=== PATIENT | female | born 1995 | race Caucasian/White ===

== ENCOUNTER 2016-09-26 20:51 | Outpatient (CLI) | payer MEDICAID ==
[2016-09-26] MEDS ORDERED: PROMETHAZINE HCL 25 MG SUPP (4 SUPP/ER DISP) PR ONE (21:31)
[2016-09-26] MEDS ORDERED: PROMETHAZINE HCL 25 MG SUPP.RECT PR ONE ×2 (21:35→22:00)
[2016-09-26 21:43] LABS: AMNISURE (ROM) NEGATIVE (NEGATIVE)
--- NOTE | 2016-09-26 22:01 | L&D Flow Sheet ---
LD Flowsheet Datetime Report Generated by CPN: 09/26/2016 22:00 Datetime: 09/26/2016 21:45 Patient Care Comments: Patient vomitting (Betzy Field, RN) Datetime: 09/26/2016 21:40 NBP Sys/Skylar/Mean (mmHg): 114 (QS system process) : 76 (QS system process) : 90 (QS system process) Pulse: 106 (QS system process) LaborFlag: Antepartum (QS system process) Datetime: 09/26/2016 21:39 Medications Medication Comments: Phenergan 25 mg [place] (Betzy Field, RN) Datetime: 09/26/2016 21:28 Communication Communication: RN Reviewed Strip; Provider Orders Received (Betzy Patricio RN) Communication Comments: Informed Dr. Baltazar of patient's complaint; orders recevied fro Phenergan 25 mg supp per rectum (Betzy Patricio RN) Datetime: 09/26/2016 21:22 Frequency (min): q1-2 minutes (Betzy Patricio RN) Pain Pain Scale: 4 (Betzy Patricio RN) Pain Presence: Intermittent (Betzy Patricio RN) Pain Type: Cramping (Betzy Patricio RN) Pain Location: Abdomen (Betzy Patricio RN) Pain Goal: 0 (Betzy Patricio RN) Pain Relief Measures: Comfort Measures (Betzy Patricio RN) Pain Coping: Talking Through Contractions; Breathing Through Contractions (Betzy Patricio RN) Vaginal Bleeding: None (Betzy Field, RN) Maternal Assessment Level of Consciousness: Fully Conscious (Betzy Field, RN) DTR's/Clonus: DTRs 2+; No Clonus (Betzy Field, RN) Headache: Denies (Betzy Field, RN) Breath Sounds, Left: Clear and Equal (Betzy Field, RN) Breath Sounds, Right: Clear and Equal (Betzy Field, RN) Nausea/Vomiting: Present (Betzy Field, RN) RUQ Epigastric Pain: Denies (Betzy Field, RN) Teaching Instructional Method: Verbal; Patient Instructed; Family/Support Person Instructed; Verbalized Understanding (Betzy Patricio RN) Plan of Care: Plan of Care Discussed (Betzy Patricio RN) Unit Routine: [place] to Room; Call [place]; Bed; Visiting Policy; Waiting Areas; Infant Security; Phone/Cell Phone Use; Unit Personnel; Handwashing; Flu/Illness Precautions; Monitoring; Safety/Fall Risk Prevention; Bathroom Privileges (Betzy Patricio RN) LaborFlag: Antepartum (QS system process) Datetime: 09/26/2016 21:10 NBP Sys/Skylar/Mean (mmHg): 126 (QS system process) : 80 (QS system process) : 99 (QS system process) Pulse: 108 (QS system process) LaborFlag: Antepartum (QS system process) Datetime: 09/26/2016 21:08 Vital Signs Stage of : Antepartum (Betzy Field, RN) Vaginal Exam Dilatation (cm): 1.0 (Betzy Patricio RN) Effacement (%): 70 (Betzy Patricio, RN) Station: -2 (Betzy Patricio RN) Exam by: SANKET Chandra (Betzy Patricio, SANKET) Datetime: 09/26/2016 11:26 NBP Sys/Skylar/Mean (mmHg): 115 (QS system process) : 73 (QS system process) : 88 (QS system process) Pulse: 88 (QS system process) Uterine Activity Monitor Mode: External; Palpation (Jerome Driscoll RN) Frequency (min): 3-6 (Jerome Americo, RN) Quality: Mild (Jerome Americo, RN) Duration (sec): 60-80 (Jerome Americo, RN) Duration Criteria: Less than Two 120 Second Contractions (Jerome Americo, RN) Pattern: Normal: <= 5 Contractions in 10 Minutes (Jerome Americo, RN) Resting Tone (Palpate): Relaxed (Jerome Americo, RN) Assessment A Monitor Mode: External US (Jerome Americo, RN) FHR Baseline Rate : 130 (Jerome Americo, RN) FHR Baseline Changes: No Baseline Change (Jerome Americo, RN) Variability: Moderate 6-25 bpm (Jerome Americo, RN) Accelerations: Prolonged (Jerome Americo, RN) Decelerations: None (Jerome Americo, RN) Comments: Pt removed from monitors for discharge. (Jerome Americo, RN) Labor/Induction: Labor Stages (Jerome Americo, RN) Teaching Comments: Labor Process (Jerome Americo, RN) Communication Communication: RN at Bedside; RN Reviewed Strip (Jerome Americo, RN) Datetime: 09/26/2016 11:21 Exam by: S americo RN (Jerome Americo, RN) Vaginal Exam Comments: Unchanged (Jerome Americo, RN) Datetime: 09/26/2016 11:20 Communication Comments: K Taylor CNM notified of pt ve unchanged, efm strip, reactive NST, ctx pattern, pain. Orders to discharge pt home now for false labor. (Jerome Americo, RN) Datetime: 09/26/2016 11:15 Respirations: 16 (Jerome Americo, RN) Temperature (F): 98.0 (Jerome Americo, RN) Temperature (C): 36.7 (QS system process) Uterine Activity Monitor Mode: External; Palpation (Jerome Americo, RN) Frequency (min): 3-6 (Jerome Americo, RN) Quality: Mild (Jerome Americo, RN) Duration (sec): 60-110 (Jerome Americo, RN) Resting Tone (Palpate): Relaxed (Jerome Americo, RN) Assessment A Monitor Mode: External US (Jerome Americo, RN) FHR Baseline Rate : 130 (Jerome Aemrico, RN) Variability: Moderate 6-25 bpm (Jerome Americo, RN) Accelerations: 15X15 (Jerome Americo, RN) Decelerations: None (Jerome Americo, RN) Pain Pain Scale: 2 (Jerome Americo, RN) Pain Type: Contraction (Jerome Americo, RN) Pain Coping: Talking Through Contractions; Declines Medication or Epidural (Jerome Americo, RN) Maternal Assessment Level of Consciousness: Fully Conscious (Jerome Americo, RN) Headache: Denies (Jerome Americo, RN) Nausea/Vomiting: Denies (Jerome Americo, RN) RUQ Epigastric Pain: Denies (Jerome Americo, RN) Communication Communication: RN at Bedside; RN Reviewed Strip (Jerome Suneet, RN) Datetime: 09/26/2016 10:55 NBP Sys/Skylar/Mean (mmHg): 113 (QS system process) : 77 (QS system process) : 88 (QS system process) Pulse: 91 (QS system process) Datetime: 09/26/2016 10:52 Teaching Instructional Method: Demo; Verbal; Patient Instructed; Family/Support Person Instructed; Verbalized Understanding (Jerome Driscoll RN) Plan of Care: Plan of Care Discussed (Jerome Driscoll RN) Labor/Induction: Labor Stages (Jerome Driscoll RN) Related: Common Discomforts of ; Maternal Physical Changes; Maternal Emotional Changes; Nutrition; Hydration; Activity and Rest (Jerome Driscoll RN) Datetime: 09/26/2016 10:46 Monitor Interventions for UA: [place] Adjusted (Jerome Driscoll, RN) Datetime: 09/26/2016 10:45 Uterine Activity Monitor Mode: External; Palpation (Jerome Americo, RN) Frequency (min): irregular (Jerome Americo, RN) Quality: Mild (Jerome Americo, RN) Resting Tone (Palpate): Relaxed (Jerome Americo, RN) Assessment A Monitor Mode: External US (Jerome Americo, RN) FHR Baseline Rate : 120 (Jerome Americo, RN) Variability: Moderate 6-25 bpm (Jerome Americo, RN) Accelerations: 15X15 (Jerome Americo, RN) Decelerations: None (Jerome Americo, RN) Communication Communication: RN at Bedside; RN Reviewed Strip (Jerome Americo, RN) Datetime: 09/26/2016 10:20 NBP Sys/Skylar/Mean (mmHg): 128 (QS system process) : 67 (QS system process) : 88 (QS system process) Pulse: 85 (QS system process) Patient Care Patient Position/Activity: Left Lateral (Jerome Americo, RN) Datetime: 09/26/2016 10:19 Vaginal Exam Dilatation (cm): 1.0 (Jerome Americo, RN) Effacement (%): 70 (Jerome Americo, RN) Station: -2 (Jerome Americo, RN) Exam by: S Americo RN (Jerome Americo, RN) Vaginal Bleeding: None (Jerome Americo, RN) Cervix, Consistency: Firm (Jerome Americo, RN) Cervix, Position: Posterior (Jerome Americo, RN) Broussard's Score Dilatation (cm): 1-2 cm (Jerome Americo, RN) Effacement: 60-70_ effaced (Jerome Americo, RN) Station: minus 2 (Jerome Americo, RN) Consistency: Firm (Jerome Americo, RN) Position: Posterior (Jerome Americo, RN) Total Broussard's Score: 4 (QS system process) : 0-4 = Unfavorable cervix (QS system process) Datetime: 09/26/2016 10:15 Frequency (min): 5-10 (Jerome Driscoll, RN) Pain Pain Scale: 2 (Jerome Driscoll, RN) Pain Presence: Intermittent (Jerome Cabrerat, RN) Pain Type: Cramping; Contraction (Jerome Suneet, RN) Pain Location: Abdomen (Jerome Cabrerat, RN) Pain Relief Measures: Comfort Measures (Jerome Suneet, RN) Pain Coping: Talking Through Contractions; Declines Medication or Epidural (Jerome Suneet, RN) Vaginal Bleeding: None (Jerome Driscoll, RN) Maternal Assessment Level of Consciousness: Fully Conscious (Jerome Suneet, RN) DTR's/Clonus: DTRs 2+; No Clonus (Jerome Suneet, RN) Headache: Denies (Jerome Suneet, RN) Breath Sounds, Left: Clear and Equal (Jerome Suneet, RN) Breath Sounds, Right: Clear and Equal (Jerome Driscoll RN) Nausea/Vomiting: Denies (Jerome Driscoll RN) RUQ Epigastric Pain: Denies (Jerome Driscoll RN)
[2016-09-26] MEDS: RINGERS SOLUTION,LACTATED 2,000 ML IV PRN ×2 (23:03→23:48)
[2016-09-27] MEDS ORDERED: ZOLPIDEM TARTRATE 5 MG TABLET PO ONE (00:30)
[2016-09-27] MEDS ORDERED: ZOLPIDEM TARTRATE 5 MG TABLET ONE (00:43)
--- NOTE | 2016-09-27 04:46 | L&D General Admission ---
General Admit Datetime Report Generated by CPN: 09/27/2016 04:45 INFORMATION Patient Age: 21 (09/26/2016 10:01:QS system process) EDC: 09/25/2016 00:00 (09/26/2016 10:13:Jerome Driscoll RN) LMP: 12/20/2015 00:00 (09/26/2016 10:13:Jerome Driscoll RN) : 1 (09/26/2016 10:13:Jerome Driscoll RN) Para: 0 (09/26/2016 10:13:Jerome Driscoll RN) Baby, Number in Womb: 1 (09/26/2016 10:13:Betzy Patricio RN) CARE Primary Employment Officer: [facility] Department (09/26/2016 10:13:Jerome Driscoll RN) Employment Officer Other: [employer] (09/26/2016 10:13:Jerome Driscoll RN) Adequate Care: Yes (09/26/2016 10:13:Jerome Driscoll RN) Prepregnancy Weight (lb): 142 (09/26/2016 10:13:Jerome Driscoll RN) Prepregnancy Weight (kg): 64.5 (09/26/2016 10:13:QS system process) Height (in): 64 (09/26/2016 21:32:QS system process) Height (in): 64 (09/26/2016 10:14:QS system process) ALLERGIES Medication Allergy: No (09/26/2016 10:13:Jerome Driscoll RN) Medication Allergies: No Known Allergies (09/26/2016) (09/26/2016 10:14:QS system process) Latex Allergy: No Latex Allergies (09/26/2016 10:13:Jerome Driscoll RN) COMMUNICATION Primary Language: Macedonian (09/26/2016 10:13:Jerome Driscoll RN) Communication Barrier(s): None (09/26/2016 10:13:Jerome Driscoll RN) DEMOGRAPHICS Address: [address] [place] [id number] (09/26/2016 10:01:QS system process) Zipcode: [address] (09/26/2016 10:01:QS system process) Home (09/26/2016 10:01:QS system process) SSN: [id number] (09/26/2016 10:01:QS system process) Next of Kin Name: NATALI CHERRY (09/26/2016 10:01:QS system process) Next of Kin (09/26/2016 10:01:QS system process) Next of Kin Relationship: [place] (09/26/2016 10:01:QS system process) Date of : 1995 (09/26/2016 10:01:QS system process) Marital Status: Single (09/26/2016 10:01:QS system process) Sex: Female (09/26/2016 10:01:QS system process) Occupation: None (09/26/2016 10:13:Jerome Driscoll RN) Race: (09/26/2016 10:01:QS system process) Ethnicity: Non- or (09/26/2016 10:01:QS system process) Yazdanism: Jainism (09/26/2016 10:01:QS system process) Education: 12 (09/26/2016 10:13:Jerome Driscoll RN) FOB Involved: Yes (09/26/2016 10:13:Jerome Driscoll RN) Father of Baby Name: Tay Ashley (09/26/2016 10:13:Jerome Driscoll RN) Person Auth to release pt PHI: Natali Cherry (09/26/2016 10:13:Jerome Driscoll RN) DRUG AND ALCOHOL USE Alcohol: No (09/26/2016 10:13:Jerome Driscoll RN) Cigarettes: Never Smoker. [id number] (09/26/2016 10:13:Jerome Driscoll RN) Marijuana: No (09/26/2016 10:13:Jerome Driscoll RN) Cocaine: No (09/26/2016 10:13:Jerome Driscoll RN) Other Illicit Drugs: No (09/26/2016 10:13:Jerome Driscoll RN) VACCINE HISTORY Influenza Vaccine: Yes (09/26/2016 10:13:Jerome Driscoll RN) Influenza Date: 07/06/16 (09/26/2016 10:13:Jerome Driscoll RN) Pneumococcal Vaccine: Uncertain (09/26/2016 10:13:Jerome Driscoll RN) Tdap Vaccine: Yes (09/26/2016 10:13:Jerome Driscoll RN) Tdap Date: 07/06/16 (09/26/2016 10:13:Jerome Driscoll RN) Hepatitis B Vaccine: Yes (09/26/2016 10:13:Jerome Driscoll RN) Straightening Press Operator Helper: Navadelaida (09/26/2016 10:13:Jerome Driscoll RN) Feeding Preference: Both (09/26/2016 10:13:Jerome Driscoll RN) Benefit of Breast Feed Discussed: Yes (09/26/2016 10:13:Jerome Driscoll RN) Circumcision: Yes (09/26/2016 10:13:Jerome Driscoll RN) Classes Attended: No (09/26/2016 10:13:Jerome Driscoll RN) Tubal Ligation: No (09/26/2016 10:13:Jerome Driscoll RN) Tubal Authorization Signed: N/A (09/26/2016 10:13:Jerome Driscoll RN) Consent: N/A (09/26/2016 10:13:Jerome Driscoll RN) Consent Signed: N/A (09/26/2016 10:13:Jerome Driscoll RN) Pain Management Plans: Epidural (09/26/2016 10:13:Jerome Driscoll RN) Plans for Labor and Delivery: None (09/26/2016 10:13:Jerome Driscoll RN) Support Person: Tay Ashley (09/26/2016 10:13:Jerome Driscoll RN) Support Person Relationship: Significant Other (09/26/2016 10:13:Jerome Driscoll RN) Cultural/Spritual Practice: No (09/26/2016 10:13:Jerome Driscoll RN) Spir/Cult Dietary Needs: No (09/26/2016 10:13:Jerome Driscoll RN) LIVING SITUATION/DISCHARGE PLAN Living Arrangements: Apartment (09/26/2016 10:13:Jerome Driscoll RN) Adequate Access to:: Electric; Heat; Refrigeration; Plumbing/Running water; Phone; Transportation (09/26/2016 10:13:Jerome Driscoll RN) WIC Program: Yes (09/26/2016 10:13:Jerome Driscoll RN) Discharge Painting Contractor Person: Tay Ashley (09/26/2016 10:13:Jerome Driscoll RN) Person to Help after Discharge: Tay Ashley (09/26/2016 10:13:Jerome Driscoll RN) Currently Using Commun Resources: Yes (09/26/2016 10:13:Jerome Driscoll RN) Specify Current Resource Used: Medicaid (09/26/2016 10:13:Jerome Driscoll RN) Outside Agency/Director Of Cardiac Rehabilitation: Yes (09/26/2016 10:13:Jerome Driscoll RN) Car Seat for Discharge: Yes (09/26/2016 10:13:Jerome Driscoll RN) Adoption Requested: No (09/26/2016 10:13:Jerome Driscoll RN) Pt Contact w/infant Post : N/A (09/26/2016 10:13:Jerome Driscoll RN) LABS Group Beta Strep: NEGATIVE (09/26/2016 10:13:Jerome Driscoll RN) Gonorrhea: Negative (09/26/2016 10:13:Jerome Driscoll RN) Chlamydia: Negative (09/26/2016 10:13:Jerome Driscoll RN) OB/PREVIOUS HISTORY LMP: 12/20/2015 00:00 (09/26/2016 10:13:Jerome Driscoll RN) Previous Procedures: None (09/26/2016 10:13:Jerome Driscoll RN) Current Procedures: Ultrasound (09/26/2016 10:13:Jerome Driscoll RN) History of Previous : No (09/26/2016 10:13:Jerome Driscoll RN) History of Gestational Diabetes: No (09/26/2016 10:13:Jerome Driscoll RN) History of PIH: No (09/26/2016 10:13:Jerome Driscoll RN) History of Incompetent Cervix: No (09/26/2016 10:13:Jerome Driscoll RN) History of Placenta Previa/Abrup: No (09/26/2016 10:13:Jerome Driscoll RN) History of Macrosomia: No (09/26/2016 10:13:Jerome Driscoll RN) History of IUGR: No (09/26/2016 10:13:Jerome Driscoll RN) History of Hemorrhage: No (09/26/2016 10:13:Jerome Driscoll RN) History of Loss/Stillborn: No (09/26/2016 10:13:Jerome Driscoll RN) History of : No (09/26/2016 10:13:Jerome Driscoll RN) History of D (Rh) Sensitization: No (09/26/2016 10:13:Jerome Driscoll RN) History Recurrent Loss/Stillborn: No (09/26/2016 10:13:Jerome Driscoll RN) History Depression/PP Depression: No (09/26/2016 10:13:Jerome Driscoll RN) History of Uterine Anomaly/HAL: No (09/26/2016 10:13:Jerome Driscoll RN) History of Infertility: No (09/26/2016 10:13:Jerome Driscoll RN) History of ART Treatment: No (09/26/2016 10:13:Jerome Driscoll RN) History of HAL: No (09/26/2016 10:13:Jerome Driscoll RN) Comments Obstetrical History: G1 Current (09/26/2016 10:13:Jerome Driscoll RN) MEDICAL HISTORY Med Hx Diabetes: No (09/26/2016 10:13:Jerome Driscoll RN) Med Hx Hypertension: No (09/26/2016 10:13:Jerome Driscoll RN) Med Hx Heart Disease: No (09/26/2016 10:13:Jerome Driscoll RN) Med Hx Autoimmune Disorder: No (09/26/2016 10:13:Jerome Driscoll RN) Med Hx Kidney Disease/UTI: No (09/26/2016 10:13:Jerome Driscoll RN) Med Hx Neurologic/Epilepsy: No (09/26/2016 10:13:Jerome Driscoll RN) Med Hx Psychiatric Disorders: Yes (09/26/2016 10:13:Jerome Driscoll RN) Med Hx Hepatitis/Liver Disease: No (09/26/2016 10:13:Jerome Driscoll RN) Med Hx Varicosities/Phlebitis: No (09/26/2016 10:13:Jerome Driscoll RN) Med Hx Thyroid Dysfunction: No (09/26/2016 10:13:Jerome Driscoll RN) Med Hx Trauma/Violence: No (09/26/2016 10:13:Jeroem Driscoll RN) Med Hx Blood Transfusion: No (09/26/2016 10:13:Jerome Driscoll RN) Med Hx Pulmonary (Asthma,TB): No (09/26/2016 10:13:Jerome Driscoll RN) Med Hx Breast: No (09/26/2016 10:13:Jerome Driscoll RN) Med Hx SUPERINTENDENT CONTAINER TERMINAL Surgery: No (09/26/2016 10:13:Jerome Driscoll RN) Med Hx Hospitalization/Surgery: No (09/26/2016 10:13:Jerome Driscoll RN) Med Hx Anesthetic Complications: No (09/26/2016 10:13:Jerome Driscoll RN) Med Hx Abnormal Pap Smear: No (09/26/2016 10:13:Jerome Driscoll RN) Other Medical Diseases: No (09/26/2016 10:13:Jerome Driscoll RN) Med Hx Significant Family Hx: No (09/26/2016 10:13:Jerome Driscoll RN) Details of Med/Surg Hx: Anxiety; Hx Pancreatitis and elevated lipase; Anemia; Vertigo (09/26/2016 10:13:Jerome Driscoll RN) INFECTIOUS HISTORY Inf Hx Gonorrhea: No (09/26/2016 10:13:Jerome Driscoll RN) Inf Hx Chlamydia: No (09/26/2016 10:13:Jerome Driscoll RN) Inf Hx Syphilis: No (09/26/2016 10:13:Jerome Driscoll RN) Inf Hx HIV/AIDS: No (09/26/2016 10:13:Jerome Driscoll RN) Inf Hx Human Papilloma Virus: No (09/26/2016 10:13:Jerome Driscoll RN) Inf Hx Pt/Partner Genital Herpes: No (09/26/2016 10:13:Jerome Driscoll RN) Inf Hx Tuberculosis/Exposure: No (09/26/2016 10:13:Jerome Driscoll RN) Inf Hx Hepatitis B,C: No (09/26/2016 10:13:Jerome Driscoll RN) Inf Hx Rash or Viral Illness: No (09/26/2016 10:13:Jerome Driscoll RN) GENETIC HISTORY Gen Hx Age >=35 at RAS[place]: No (09/26/2016 10:13:Jerome Driscoll RN) Gen Hx Thalassemia: No (09/26/2016 10:13:Jerome Driscoll RN) Gen Hx Congenital Heart Defect: No (09/26/2016 10:13:Jerome Driscoll RN) Gen Hx Neural Tube Defect: No (09/26/2016 10:13:Jerome Driscoll RN) Gen Hx Down's Syndrome: No (09/26/2016 10:13:Jerome Driscoll RN) Gen Hx Aldair-Sachs: No (09/26/2016 10:13:Jerome Driscoll RN) Gen Hx Sun: No (09/26/2016 10:13:Jerome Driscoll RN) Gen Hx Familial Dysautonomia: No (09/26/2016 10:13:Jerome Driscoll RN) Gen Hx Sickle Cell Disease/Trait: No (09/26/2016 10:13:Jerome Driscoll RN) Gen Hx Hemophilia/Blood Disorder: No (09/26/2016 10:13:Jerome Driscoll RN) Gen Hx Muscular Dystrophy: No (09/26/2016 10:13:Jerome Driscoll RN) Gen Hx Cystic Fibrosis: No (09/26/2016 10:13:Jerome Driscoll RN) Gen Hx Huntingtons Chorea: No (09/26/2016 10:13:Jerome Driscoll RN) Gen Hx Mental Retardation/Autism: No (09/26/2016 10:13:Jerome Driscoll RN) Gen Hx Tested for Fragile X: No (09/26/2016 10:13:Jerome Driscoll RN) Gen Hx Other Inher/Chromosomal: No (09/26/2016 10:13:Jerome Driscoll RN) Gen Hx Maternal Metabolic DO: No (09/26/2016 10:13:Jerome Driscoll RN) Gen Hx Pt Father or FOB Defect: No (09/26/2016 10:13:Jerome Driscoll RN) Gen Hx Other Genetic History: No (09/26/2016 10:13:Jerome Driscoll RN) Gen Hx Drugs/Meds since LMP: No (09/26/2016 10:13:Jerome Driscoll RN) Gen Hx Medications: Tylenol Benadryl PNV Iron Vitamin C (09/26/2016 10:13:Jerome Driscoll RN)
--- NOTE | 2016-09-27 04:46 | L&D Current Admission ---
Current Admit Datetime Report Generated by CPN: 09/27/2016 04:45 ADMISSION INFORMATION Chief Complaint: Contractions (09/26/2016 21:22:Betzy Patricio RN) Chief Complaint: Contractions (09/26/2016 10:15:Jerome Driscoll RN)
--- NOTE | 2016-09-27 04:46 | L&D Discharge Summary ---
OB Discharge Summary Datetime Report Generated by CPN: 09/27/2016 04:45 DISCHARGE DIAGNOSIS Diagnosis/Symptoms: False Labor Gestation: 40.1 Number of Babies in Womb: 1 Parity: 0 DIET/ACTIVITY/RESTRICTIONS Diet: Regular Activity: Normal Activity TEACHING/INSTRUCTIONS/REFERRALS Instructions Given To: Patient and spouse Instructions Understood: Patient Verbalized Understanding; Support Person Verbalized Understanding Educational Materials- Other: Dehydration DISCHARGE INFORMATION Discharged AMA: No Discharge Date/Time: 09/27/2016 00:47 Discharged To: Home Discharge Provider Name: Dr. Baltazar Accompanied By: Spouse Discharge Method: Wheelchair Condition: Stable FOLLOW UP INFORMATION Follow Up With: [facility] Follow Up On: As Scheduled Follow Up Phone Number: [facility] - Comments: Discussed dehydration and signs and symptoms of when to return to office or hospital with patient and spouse. Both, patient and spouse, verbalized understanding. Patient discharged home for false labor via wheelchair in stable condition. GENERAL INSTR-CALL PROVIDER IF: Contractions: Contractions or cramps become more frequent than 8 in one hour or 4 in 20 minutes; Regular painful contractions every 5 minutes or less for one hour. Time your contractions from the beginning of one to the beginning of the next Pressure: Pressure in your vagina or lower abdomen that may feel like the baby is pushing down Period Like Cramps: Period-like cramps or low dull backache that may come and go Cramps/Diarrhea: Abdominal cramps that may be accompanied by diarrhea Gush of Fluid/Blood: Gush of fluid or blood from your vagina (it is normal to have spotting after vaginal exam or intercourse) Vaginal Discharge: Change in the type or amount of vaginal discharge Decreased Movement: Your baby is not moving as much as usual- 4 movements in 1 hour after drinking and resting on side Temperature: Temperature greater than 100.0(F) orally
--- NOTE | 2016-09-27 04:46 | Antepartum Discharge Summary ---
Antepartum DC Datetime Report Generated by CPN: 09/27/2016 04:45 DIET/ACTIVITY/RESTRICTIONS Diet: Regular (09/27/2016 00:52:Betzy Patricio, RN) Diet: Regular (09/26/2016 11:34:Jerome Americo, RN) Activity: Normal Activity (09/27/2016 00:52:Betzy Patricio, RN) Activity: Normal Activity (09/26/2016 11:34:Jerome Americo, RN) TEACHING/INSTRUCTIONS/REFERRALS Instructions Given To: Patient and spouse (09/27/2016 00:52:Betzy Patricio RN) Instructions Given To: pt (09/26/2016 11:34:Jerome Driscoll RN) Instructions Understood: Patient Verbalized Understanding; Support Person Verbalized Understanding (09/27/2016 00:52:Betzy Patricio RN) Instructions Understood: Patient Verbalized Understanding; Support Person Verbalized Understanding (09/26/2016 11:34:Jerome Driscoll RN) Educational Materials- Other: Dehydration (09/27/2016 00:52:Betzy Patricio RN) Educational Materials- Other: Kick Counts Labor Process (09/26/2016 11:34:Jerome Driscoll RN) DISCHARGE INFORMATION Discharged AMA: No (09/27/2016 00:52:Betzy Patricio RN) Discharged AMA: No (09/26/2016 11:34:Jerome Driscoll RN) Discharge Date/Time: 09/27/2016 00:47 (09/27/2016 00:52:Betzy Patricio RN) Discharge Date/Time: 09/26/2016 11:34 (09/26/2016 11:34:Jerome Driscoll RN) Discharged To: Home (09/27/2016 00:52:Betzy Patricio RN) Discharged To: Home (09/26/2016 11:34:Jerome Driscoll RN) Discharge Provider Name: Dr. Baltazar (09/27/2016 00:52:Betzy Patricio RN) Discharge Provider Name: FRANKO (09/26/2016 11:34:Jerome Driscoll RN) Accompanied By: Spouse (09/27/2016 00:52:Betzy Patricio RN) Discharge Method: Wheelchair (09/27/2016 00:52:Betzy Patricio RN) Discharge Method: Ambulatory (09/26/2016 11:34:Jerome Driscoll RN) Condition: Stable (09/27/2016 00:52:Betzy Patricio RN) Condition: Stable (09/26/2016 11:34:Jerome Driscoll RN) FOLLOW UP INFORMATION Follow Up With: [facility] (09/27/2016 00:52:Betzy Patricio RN) Follow Up With: [facility] (09/26/2016 11:34:Jerome Driscoll RN) Follow Up On: As Scheduled (09/27/2016 00:52:Betzy Patricio RN) Follow Up On: As Scheduled (09/26/2016 11:34:Jerome Driscoll RN) Follow Up Phone Number: [facility] - (09/27/2016 00:52:Betzy Patricio RN) Follow Up Phone Number: [facility] - (09/26/2016 11:34:Jerome Driscoll RN) Comments: Discussed dehydration and signs and symptoms of when to return to office or hospital with patient and spouse. Both, patient and spouse, verbalized understanding. Patient discharged home for false labor via wheelchair in stable condition. (09/27/2016 00:52:Betzy Patricio RN) Comments: Pt agrees with discharge; clinical microbiologist agrees with discharge. Pt discharged in no distress, understands s/s to report, when to return to hospital for evaluation, to keep scheduled appointment in office tomorrow. (09/26/2016 11:34:Jerome Driscoll RN) GENERAL INSTR-CALL PROVIDER IF: Contractions: Contractions or cramps become more frequent than 8 in one hour or 4 in 20 minutes; Regular painful contractions every 5 minutes or less for one hour. Time your contractions from the beginning of one to the beginning of the next (09/27/2016 00:52:Betzy Patricio RN) Contractions: Contractions or cramps become more frequent than 8 in one hour or 4 in 20 minutes; Regular painful contractions every 5 minutes or less for one hour. Time your contractions from the beginning of one to the beginning of the next (09/26/2016 11:34:Jerome Driscoll RN) Pressure: Pressure in your vagina or lower abdomen that may feel like the baby is pushing down (09/27/2016 00:52:Betzy Patricio RN) Pressure: Pressure in your vagina or lower abdomen that may feel like the baby is pushing down (09/26/2016 11:34:Jerome Driscoll RN) Period Like Cramps: Period-like cramps or low dull backache that may come and go (09/27/2016 00:52:Betzy Patricio RN) Period Like Cramps: Period-like cramps or low dull backache that may come and go (09/26/2016 11:34:Jerome Driscoll RN) Cramps/Diarrhea: Abdominal cramps that may be accompanied by diarrhea (09/27/2016 00:52:Betzy Patricio RN) Cramps/Diarrhea: Abdominal cramps that may be accompanied by diarrhea (09/26/2016 11:34:Jerome Driscoll RN) Gush of Fluid/Blood: Gush of fluid or blood from your vagina (it is normal to have spotting after vaginal exam or intercourse) (09/27/2016 00:52:Betzy Patricio RN) Gush of Fluid/Blood: Gush of fluid or blood from your vagina (it is normal to have spotting after vaginal exam or intercourse) (09/26/2016 11:34:Jerome Driscoll RN) Vaginal Discharge: Change in the type or amount of vaginal discharge (09/27/2016 00:52:Betzy Patricio RN) Vaginal Discharge: Change in the type or amount of vaginal discharge (09/26/2016 11:34:Jerome Driscoll RN) Decreased Movement: Your baby is not moving as much as usual- 4 movements in 1 hour after drinking and resting on side (09/27/2016 00:52:Betzy Patricio RN) Decreased Movement: Your baby is not moving as much as usual- 4 movements in 1 hour after drinking and resting on side (09/26/2016 11:34:Jerome Driscoll RN) Temperature: Temperature greater than 100.0(F) orally (09/27/2016 00:52:Betzy Patricio RN) Temperature: Temperature greater than 100.0(F) orally (09/26/2016 11:34:Jerome Driscoll RN) Hypertension Signs/Symptoms: Severe headache which is not relieved 30 minutes after taking Tylenol(Acetaminophen); Blurry vision or spots before your eyes; Severe heartburn or pain on the upper right side of your abdomen that is not relieved by an antacid; Increased swelling in your face, hands or feet (09/27/2016 00:52:Betzy Patricio RN) Hypertension Signs/Symptoms: Severe headache which is not relieved 30 minutes after taking Tylenol(Acetaminophen); Blurry vision or spots before your eyes; Severe heartburn or pain on the upper right side of your abdomen that is not relieved by an antacid; Increased swelling in your face, hands or feet (09/26/2016 11:34:Jerome Driscoll RN) Urinary Output: Decreased urinary output or dark colored urine (09/27/2016 00:52:Betzy Patricio RN) Urinary Output: Decreased urinary output or dark colored urine (09/26/2016 11:34:Jerome Driscoll RN) ADDITIONAL INSTRUCTIONS N/V [place]/Crackers: Keep dry toast/crackers with you to munch on (09/26/2016 11:34:Jerome Driscoll RN) N/V Frequent Meals: Eat small frequent meals (09/26/2016 11:34:Jerome Driscoll RN) N/V Empty Stomach: Try to keep something in your stomach (don't let your stomach get empty) (09/26/2016 11:34:Jerome Driscoll RN) N/V Time Getting Up: Take your time getting up (09/26/2016 11:34:Jerome Driscoll RN) N/V Avoid Smells: Avoid smells that make you feel sick (09/26/2016 11:34:Jerome Driscoll RN) Travel Seatbelts: Wear seatbelts or safety/lap belts (09/26/2016 11:34:Jerome Driscoll RN) Travel Walk Frequently: Walk frequently, every 1-2 hours (09/26/2016 11:34:Jerome Driscoll RN) Travel Comfort Clothes: Wear clothing that does not constrict and comfortable shoes (09/26/2016 11:34:Jerome Driscoll RN) Travel Light Snack: Keep a light snack (e.g. dry crackers) with you at all times to prevent nausea (09/26/2016 11:34:Jerome Driscoll RN) Travel Hydration: Drink plenty of water, low sodium and noncaffeinated drinks (09/26/2016 11:34:Jerome Driscoll RN) Travel Medications: DO NOT take any medication that is not approved by your physician first (09/26/2016 11:34:Jerome Driscoll RN) Travel PN Records: Always keep a copy of your medical record with you just in case (09/26/2016 11:34:Jerome Driscoll RN) Edema Avoid Standing: Avoid standing for long periods, keep legs up when you can (09/26/2016 11:34:Jerome Driscoll RN) Edema Rest on Side: When resting, lie on your side (left is best) (09/26/2016 11:34:Jerome Driscoll RN) Edema Limit Sodium: Limit the amount of salty foods you eat (09/26/2016 11:34:Jerome Driscoll RN) Edema Support Hose: Try to wear support hose as much as possible (09/26/2016 11:34:Jerome Driscoll RN) Exercise Overheating: Avoid situations that would cause you to become overheated (09/26/2016 11:34:Jerome Driscoll RN) Exercise Weather: Exercise outdoors only if the weather is reasonable and not too hot (09/26/2016 11:34:Jerome Driscoll RN) Exercise Exertion: Do not over exert yourself when you exercise (09/26/2016 11:34:Jerome Driscoll RN) Exercise Hydration: Drink plenty of fluids, especially water (09/26/2016 11:34:Jerome Driscoll RN) Exercise Support: Wear good support hose, bra and shoes when exercising (09/26/2016 11:34:Jerome Driscoll RN) Varicose Veins Instructions: Do not stand for long periods of time (09/26/2016 11:34:Jerome Driscoll RN) Varicose Veins Elevate Sit: Try to keep your legs elevated when you are sitting (09/26/2016 11:34:Jerome Driscoll RN) Varicose Veins Elevate Lying: When lying down, keep your legs elevated (09/26/2016 11:34:Jerome Driscoll RN) Varicise Veins Non Binding: When wearing stockings or socks, make sure they are not too tight and bind your legs (09/26/2016 11:34:Jerome Driscoll RN) Varicose Veins Support: Wear support hose/stockings at all times (09/26/2016 11:34:Jerome Driscoll RN) Varicose Veins Periodic Move: If you have a job where you sit a lot, get up periodically and walk around (09/26/2016 11:34:Jerome Driscoll RN)
--- NOTE | 2016-09-27 04:46 | L&D Flow Sheet ---
LD Flowsheet Datetime Report Generated by CPN: 09/27/2016 04:45 Datetime: 09/27/2016 00:43 Analgesics/Sedatives: Ambien (mg) @ (Annotations: 5 mg PO) (Betzy Patricio RN) Patient Care Comments: Discussed Dehydration and signs and symptoms of when to return to office or hospital with patient and spouse; both patient and spouse verbalized understanding. (Bezty Patricio RN) Datetime: 09/27/2016 00:35 Dilatation (cm): 1.0 (Betzy Field, RN) Effacement (%): 70 (Betzy Patricio, RN) Station: -2 (Betzy Patricio, RN) Exam by: SANKET Chandra (Betzy Patricio, RN) Datetime: 09/27/2016 00:30 Monitor Mode: External; Palpation (Betzy Patricio, RN) Frequency (min): 3-6.5 (Betzy Patricio, RN) Quality: Mild (Betzy Patricio, RN) Duration (sec): 70-110 (Betzy Patricio, RN) Resting Tone (Palpate): Relaxed (Betzy Patricio, RN) Monitor Mode: External US (Betzy Patricio, RN) FHR Baseline Rate : 130 (Betzy Patricio, RN) Variability: Moderate 6-25 bpm (Betzytheodore Patricio, RN) Accelerations: 15X15 (Betzy Field, RN) Decelerations: None (Betzy Patricio, RN) Datetime: 09/27/2016 00:10 NBP Sys/[place]/Mean (mmHg): 120 (QS system process) : 80 (QS system process) : 95 (QS system process) Pulse: 110 (QS system process) LaborFlag: Antepartum (QS system process) Datetime: 09/27/2016 00:00 Monitor Mode: External; Palpation (Betzy Field, RN) Frequency (min): 6-7 (Betzy Field, RN) Quality: Mild (Betzy Field, RN) Duration (sec): 60-140 (Betzy Field, RN) Resting Tone (Palpate): Relaxed (Betzy Field, RN) Monitor Mode: External US (Betzy Field, RN) FHR Baseline Rate : 130 (Betzy Field, RN) Variability: Moderate 6-25 bpm (Betzy Field, RN) Accelerations: 15X15 (Betzy Field, RN) Decelerations: None (Betzy Field, RN) Datetime: 09/26/2016 23:47 IV/Blood Work: IV Infusing per Order; New IV Bag Hung (Betzy Field, RN) Datetime: 09/26/2016 23:40 NBP Sys/[place]/Mean (mmHg): 114 (QS system process) : 79 (QS system process) : 92 (QS system process) Pulse: 109 (QS system process) LaborFlag: Antepartum (QS system process) Datetime: 09/26/2016 23:30 Monitor Mode: External; Palpation (Betzy Field, RN) Frequency (min): 5.5-6.5 (Betzy Field, RN) Quality: Mild (Ebtzy Field, RN) Duration (sec): 60-130 (Betzy Field, RN) Resting Tone (Palpate): Relaxed (Betzy Field, RN) Monitor Mode: External US (Betzy Field, RN) FHR Baseline Rate : 130 (Betzy Field, RN) Variability: Moderate 6-25 bpm (Betzy Field, RN) Accelerations: 15X15 (Betzy Field, RN) Decelerations: None (Betzy Field, RN) Datetime: 09/26/2016 23:29 Communication: RN Reviewed Strip; Provider Orders Received (Betzy Patricio RN) Communication Comments: Orders received from Dr. Baltazar - if no change in cervix after 2nd bag of LR, patient can be discharged home with Ambien 5 mg PO (Betzy Patricio RN) Datetime: 09/26/2016 23:10 NBP Sys/[place]/Mean (mmHg): 113 (QS system process) : 83 (QS system process) : 93 (QS system process) Pulse: 103 (QS system process) LaborFlag: Antepartum (QS system process) Datetime: 09/26/2016 23:00 Monitor Mode: External; Palpation (Betzy Field, RN) Frequency (min): 5-7.5 (Betzy Field, RN) Quality: Mild (Betzy Field, RN) Duration (sec): 90-110 (Betzy Field, RN) Resting Tone (Palpate): Relaxed (Betzy Field, RN) Monitor Mode: External US (Betzy Field, RN) FHR Baseline Rate : 130 (Betzy Field, RN) Variability: Moderate 6-25 bpm (Betzy Field, RN) Accelerations: 15X15 (Betzy Field, RN) Decelerations: None (Betzy Field, RN) Datetime: 09/26/2016 22:40 NBP Sys/[place]/Mean (mmHg): 117 (QS system process) : 71 (QS system process) : 90 (QS system process) Pulse: 117 (QS system process) LaborFlag: Antepartum (QS system process) Datetime: 09/26/2016 22:30 Monitor Mode: External; Palpation (Betzy Field, RN) Frequency (min): 2.5-5 (Betzy Field, RN) Quality: Mild (Betzy Field, RN) Duration (sec): 70-100 (Betzy Field, RN) Resting Tone (Palpate): Relaxed (Betzy Field, RN) Monitor Mode: External US (Betzy Field, RN) FHR Baseline Rate : 135 (Betzy Field, RN) Variability: Moderate 6-25 bpm (Betzy Field, RN) Accelerations: 10X10 (Betzy Field, RN) Decelerations: None (Betzy Field, RN) Datetime: 09/26/2016 22:11 NBP Sys/[place]/Mean (mmHg): 126 (QS system process) : 70 (QS system process) : 91 (QS system process) Pulse: 103 (QS system process) LaborFlag: Antepartum (QS system process) Datetime: 09/26/2016 22:09 Communication Comments: Orders received from Dr. Baltazar for 2 bags of LR IV (Betzy Field, RN) Datetime: 09/26/2016 22:00 Monitor Mode: External; Palpation (Betzy Field, RN) Frequency (min): 2.5-5.5 (Betzy Field, RN) Quality: Mild (Betzy Field, RN) Duration (sec): 70-80 (Betzy Field, RN) Resting Tone (Palpate): Relaxed (Betzy Field, RN) Monitor Mode: External US (Betzy Field, RN) FHR Baseline Rate : 135 (Betzy Field, RN) Variability: Moderate 6-25 bpm (Betzy Field, RN) Accelerations: 15X15 (Betzy Field, RN) Decelerations: None (Betzy Field, RN) Datetime: 09/26/2016 21:45 Patient Care Comments: Patient vomitting (Betzy Field, RN) Datetime: 09/26/2016 21:40 NBP Sys/[place]/Mean (mmHg): 114 (QS system process) : 76 (QS system process) : 90 (QS system process) Pulse: 106 (QS system process) LaborFlag: Antepartum (QS system process) Datetime: 09/26/2016 21:39 Medication Comments: Phenergan 25 mg AL (Betzy Patricio RN) Datetime: 09/26/2016 21:30 Monitor Mode: External; Palpation (Betzy Patricio RN) Frequency (min): 2.5-3 (Betzy Patricio RN) Quality: Mild (Betzy Patricio RN) Duration (sec): 80-100 (Betzy Patricio RN) Resting Tone (Palpate): Relaxed (Betzy Patricio RN) Monitor Mode: External US (Betzy Patricio RN) FHR Baseline Rate : 135 (Betzy Patricio RN) Variability: Moderate 6-25 bpm (Betzy Patricio RN) Accelerations: 10X10 (Betzy Patricio RN) Decelerations: None (Betzy Patricio RN) Datetime: 09/26/2016 21:28 Communication: RN Reviewed Strip; Provider Orders Received (Betzy Patricio RN) Communication Comments: Informed Dr. Baltazar of patient's complaint; orders recevied fro Phenergan 25 mg supp per rectum (Betzy Patricio RN) Datetime: 09/26/2016 21:22 Frequency (min): q1-2 minutes (Betzy Patricio RN) Pain Scale: 4 (Betzy Patricio RN) Pain Presence: Intermittent (Betzy Patricio RN) Pain Type: Cramping (Betzy Patricio RN) Pain Location: Abdomen (Betzy Patricio RN) Pain Goal: 0 (Betzy Patricio RN) Pain Relief Measures: Comfort Measures (Betzy Patricio RN) Pain Coping: Talking Through Contractions; Breathing Through Contractions (Betzy Patricio RN) Vaginal Bleeding: None (Betzy Patricio RN) Level of Consciousness: Fully Conscious (Betzy Patricio RN) DTR's/Clonus: DTRs 2+; No Clonus (Betzy Patricio RN) Headache: Denies (Betzy Patricio RN) Breath Sounds, Left: Clear and Equal (Betzy Patricio RN) Breath Sounds, Right: Clear and Equal (Betzy Patricio RN) Nausea/Vomiting: Present (Betzy Patricio RN) RUQ Epigastric Pain: Denies (Betzy Patricio RN) Instructional Method: Verbal; Patient Instructed; Family/Support Person Instructed; Verbalized Understanding (Betzy Patricio RN) Plan of Care: Plan of Care Discussed (Betzy Patricio RN) Unit Routine: [place] to Room; Call [place]; Bed; Visiting Policy; Waiting Areas; Security; Phone/Cell Phone Use; Unit Personnel; Handwashing; Flu/Illness Precautions; Monitoring; Safety/Fall Risk Prevention; Bathroom Privileges (Betzy Patricio RN) LaborFlag: Antepartum (QS system process) Datetime: 09/26/2016 21:10 NBP Sys/[place]/Mean (mmHg): 126 (QS system process) : 80 (QS system process) : 99 (QS system process) Pulse: 108 (QS system process) LaborFlag: Antepartum (QS system process) Datetime: 09/26/2016 21:08 Stage of : Antepartum (Betzy Patricio RN) Dilatation (cm): 1.0 (Betzy Patricio RN) Effacement (%): 70 (Betzy Patricio RN) Station: -2 (Betzy Patricio RN) Exam by: SANKET Chandra (Betzy Patricio RN)
--- NOTE | 2016-09-27 04:46 | L&D Admission Assessment ---
LD ADM ASMT Datetime Report Generated by CPN: 09/27/2016 04:45 PATIENT ASSESSMENT Assessment Type: Triage (09/26/2016 21:22:Betzy , RN) Assessment Type: Admission Assessment (09/26/2016 10:15:Jerome Suneet, RN) WEIGHT Weight (lb): 183 (09/26/2016 21:32:QS system process) Weight (lb): 185 (09/26/2016 10:14:QS system process) Weight (kg): 83.2 (09/26/2016 21:32:QS system process) Weight (kg): 84.1 (09/26/2016 10:14:QS system process) Total Wt Gain (lb): 41 (09/26/2016 21:32:QS system process) Total Wt Gain (lb): 43 (09/26/2016 10:14:QS system process) Wt Gain (kg): 18.5 (09/26/2016 21:32:QS system process) Wt Gain (kg): 19.5 (09/26/2016 10:14:QS system process) BMI: 31.4 (09/26/2016 21:32:QS system process) PAIN Pain Scale: 4 (09/26/2016 21:22:Betzy Patricio RN) Pain Scale: 2 (09/26/2016 11:15:Jerome Driscoll RN) Pain Scale: 2 (09/26/2016 10:15:Jerome Driscoll RN) Pain Presence: Intermittent (09/26/2016 21:22:Betzy Patricio RN) Pain Presence: Intermittent (09/26/2016 10:15:Jerome Driscoll RN) Pain Type: Cramping (09/26/2016 21:22:Betzy Patricio RN) Pain Type: Contraction (09/26/2016 11:15:Jerome Driscoll RN) Pain Type: Cramping; Contraction (09/26/2016 10:15:Jerome Driscoll RN) Pain Location: Abdomen (09/26/2016 21:22:Betzy Patricio RN) Pain Location: Abdomen (09/26/2016 10:15:Jerome Driscoll RN) Pain Goal: 0 (09/26/2016 21:22:Betzy Patricio RN) Pain Related to Contraction: Yes (09/26/2016 21:22:Betzy Patricio RN) Pain Related to Contraction: Yes (09/26/2016 10:15:Jerome Driscoll RN) CONTRACTIONS Frequency (min): 3-6.5 (09/27/2016 00:30:Betzy Patricio RN) Frequency (min): 6-7 (09/27/2016 00:00:Betzy Patricio RN) Frequency (min): 5.5-6.5 (09/26/2016 23:30:Betzy Patricio RN) Frequency (min): 5-7.5 (09/26/2016 23:00:Betzy Patricio RN) Frequency (min): 2.5-5 (09/26/2016 22:30:Betzy Patricio RN) Frequency (min): 2.5-5.5 (09/26/2016 22:00:Betzy Patricio RN) Frequency (min): 2.5-3 (09/26/2016 21:30:Betzy Patricio RN) Frequency (min): q1-2 minutes (09/26/2016 21:22:Betzy Patricio RN) Frequency (min): 3-6 (09/26/2016 11:26:Jerome Driscoll RN) Frequency (min): 3-6 (09/26/2016 11:15:Jerome Driscoll RN) Frequency (min): irregular (09/26/2016 10:45:Jerome Driscoll RN) Frequency (min): 5-10 (09/26/2016 10:15:Jerome Driscoll RN) Duration (sec): 70-110 (09/27/2016 00:30:Betzy Patricio RN) Duration (sec): 60-140 (09/27/2016 00:00:Betzy Patricio RN) Duration (sec): 60-130 (09/26/2016 23:30:Betzy Patricio RN) Duration (sec): 90-110 (09/26/2016 23:00:Betzy Patricio RN) Duration (sec): 70-100 (09/26/2016 22:30:Betzy Patricio RN) Duration (sec): 70-80 (09/26/2016 22:00:Betzy Patricio RN) Duration (sec): 80-100 (09/26/2016 21:30:Betzy Patricio RN) Duration (sec): 60-80 (09/26/2016 11:26:Jerome Driscoll RN) Duration (sec): 60-110 (09/26/2016 11:15:Jerome Driscoll RN) Quality: Mild (09/27/2016 00:30:Betzy Patricio RN) Quality: Mild (09/27/2016 00:00:Betzy Patricio RN) Quality: Mild (09/26/2016 23:30:Betzy Patricio RN) Quality: Mild (09/26/2016 23:00:Betzy Patricio RN) Quality: Mild (09/26/2016 22:30:Betzy Patricio RN) Quality: Mild (09/26/2016 22:00:Betzy Patricio RN) Quality: Mild (09/26/2016 21:30:Betzy Patricio RN) Quality: Mild (09/26/2016 11:26:Jerome Driscoll RN) Quality: Mild (09/26/2016 11:15:Jerome Driscoll RN) Quality: Mild (09/26/2016 10:45:Jerome Driscoll RN) Pattern: Normal: <= 5 Contractions in 10 Minutes (09/26/2016 11:26:Jerome Driscoll RN) Resting Tone [place]: Relaxed (09/27/2016 00:30:Betzy Patricio RN) Resting Tone [place]: Relaxed (09/27/2016 00:00:Betzy Patricio RN) Resting Tone [place]: Relaxed (09/26/2016 23:30:Betzy Patricio RN) Resting Tone [place]: Relaxed (09/26/2016 23:00:Betzy Patricio RN) Resting Tone [place]: Relaxed (09/26/2016 22:30:Betzy Patricio RN) Resting Tone [place]: Relaxed (09/26/2016 22:00:Betzy Patricio RN) Resting Tone [place]: Relaxed (09/26/2016 21:30:Betzy Patricio RN) Resting Tone [place]: Relaxed (09/26/2016 11:26:Jerome Driscoll RN) Resting Tone [place]: Relaxed (09/26/2016 11:15:Jerome Driscoll RN) Resting Tone [place]: Relaxed (09/26/2016 10:45:Jerome Driscoll RN) VAGINAL EXAM Dilatation (cm): 1.0 (09/27/2016 00:35:Betzy Patricio RN) Dilatation (cm): 1.0 (09/26/2016 21:08:Betzy Patricio RN) Dilatation (cm): 1.0 (09/26/2016 10:19:Jerome Driscoll RN) Effacement (%): 70 (09/27/2016 00:35:Betzy Patricio RN) Effacement (%): 70 (09/26/2016 21:08:Betzy Patricio RN) Effacement (%): 70 (09/26/2016 10:19:Jerome Driscoll RN) Station: -2 (09/27/2016 00:35:Betzy Patricio RN) Station: -2 (09/26/2016 21:08:Betzy Patricio RN) Station: -2 (09/26/2016 10:19:Jerome Driscoll RN) BRADFORD'S SCORE Bradford's Score Dilatation (cm): 1-2 cm (09/26/2016 10:19:Jerome Driscoll RN) Bradford's Score Effacement (%): 60-70_ effaced (09/26/2016 10:19:Jerome Driscoll RN) Bradford's Score Station: minus 2 (09/26/2016 10:19:Jerome Driscoll RN) Bradford's Score Consistency: Firm (09/26/2016 10:19:Jerome Driscoll RN) Bradford's Score Position: Posterior (09/26/2016 10:19:Jerome Driscoll RN) Total Bradford's Score: 4 (09/26/2016 10:19:QS system process) Bradford's Score Text: 0-4 = Unfavorable cervix (09/26/2016 10:19:QS system process) NEURO Level of Consciousness: Fully Conscious (09/26/2016 21:22:Betzy Patricio RN) Level of Consciousness: Fully Conscious (09/26/2016 11:15:Jerome Driscoll RN) Level of Consciousness: Fully Conscious (09/26/2016 10:15:Jerome Driscoll RN) DTR's/Clonus: DTRs 2+; No Clonus (09/26/2016 21:22:Betzy Patricio RN) DTR's/Clonus: DTRs 2+; No Clonus (09/26/2016 10:15:Jerome Driscoll RN) Headache: Denies (09/26/2016 21:22:Betzy Patricio RN) Headache: Denies (09/26/2016 11:15:Jerome Driscoll RN) Headache: Denies (09/26/2016 10:15:Jerome Driscoll RN) Dizziness: No (09/26/2016 21:22:Betzy Patricio RN) Dizziness: No (09/26/2016 10:15:Jerome Driscoll RN) Blurred Vision: No (09/26/2016 21:22:Betzy Patricio RN) Blurred Vision: No (09/26/2016 10:15:Jerome Driscoll RN) Extremity Numbness/Tingling : None (09/26/2016 21:22:Betzy Patricio RN) Extremity Numbness/Tingling : None (09/26/2016 10:15:Jerome Driscoll RN) Extremity Movement: Full Range of Motion (09/26/2016 21:22:Betzy Patricio RN) Extremity Movement: Full Range of Motion (09/26/2016 10:15:Jerome Driscoll RN) CARDIOVASCULAR Heart Rhythm: Regular (09/26/2016 21:22:Betzy Patricio RN) Nailbeds: [place] (09/26/2016 21:22:Betzy Patricio RN) Nailbeds: [place] (09/26/2016 10:15:Jerome Driscoll RN) Capillary Refill: Less than 3 Seconds (09/26/2016 21:22:Betzy Patricio RN) Capillary Refill: Less than 3 Seconds (09/26/2016 10:15:Jerome Driscoll RN) Lower Extremities Edema: None (09/26/2016 21:22:Betzy Patricio RN) Lower Extremities Edema Degree: None (09/26/2016 21:22:Betzy Patricio RN) Upper Extremities Edema: None (09/26/2016 21:22:Betzy Patricio RN) Upper Extremities Edema Degree: None (09/26/2016 21:22:Betzy Patricio RN) Facial Edema: None (09/26/2016 21:22:Betzy Patricio RN) Facial Edema: None (09/26/2016 10:15:Jerome Driscoll RN) Heriberto's Sign Left Leg: Negative (09/26/2016 21:22:Betzy Patricio RN) Heriberto's Sign Left Leg: Negative (09/26/2016 10:15:Jerome Driscoll RN) Heriberto's Sign Right Leg: Negative (09/26/2016 21:22:Betzy Patricio RN) Heriberto's Sign Right Leg: Negative (09/26/2016 10:15:Jerome Driscoll RN) DVT RISK ASSESSMENT DVT Risk Age: Age less than 41 years (09/26/2016 21:22:Betzy Patricio RN) DVT Risk BMI: BMI<31 (09/26/2016 21:22:Betzy Patricio, RN) RESPIRATORY Respiratory Effort: Unlabored; Regular Rhythm; Equal Expansion (09/26/2016 21:22:Betzy Patricio RN) Respiratory Effort: Unlabored; Regular Rhythm; Equal Expansion (09/26/2016 10:15:Jerome Driscoll RN) Breath Sounds, Left: Clear and Equal (09/26/2016 21:22:Betzy Patricio RN) Breath Sounds, Left: Clear and Equal (09/26/2016 10:15:Jerome Driscoll RN) Breath Sounds, Right: Clear and Equal (09/26/2016 21:22:Betzy Patricio RN) Breath Sounds, Right: Clear and Equal (09/26/2016 10:15:Jerome Driscoll RN) Cough Productivity: Productive (09/26/2016 21:22:Betzy Patricio RN) Cough Productivity: None (09/26/2016 10:15:Jerome Driscoll RN) GASTROINTESTINAL Nausea/Vomiting: Present (09/26/2016 21:22:Betzy Patricio RN) Nausea/Vomiting: Denies (09/26/2016 11:15:Jerome Driscoll RN) Nausea/Vomiting: Denies (09/26/2016 10:15:Jerome Driscoll RN) Bowel Sounds: Normoactive (09/26/2016 21:22:Betzy Patricio RN) Bowel Sounds: Normoactive; All Quadrants (09/26/2016 10:15:Jerome Driscoll RN) RUQ Epigastric Pain: Denies (09/26/2016 21:22:Betzy Patricio RN) RUQ Epigastric Pain: Denies (09/26/2016 11:15:Jerome Driscoll RN) RUQ Epigastric Pain: Denies (09/26/2016 10:15:Jerome Driscoll RN) Bowel Patterns: Diarrhea (09/26/2016 21:22:Betzy Patricio RN) Hemorrhoids: None (09/26/2016 21:22:Betzy Patricio RN) Diet Type: Regular diet (09/26/2016 21:22:Betzy Patricio RN) GENITOURINARY Bladder: Nondistended (09/26/2016 21:22:Betzy Patricio RN) Bladder: Nondistended (09/26/2016 10:15:Jerome Driscoll RN) Frequency of Urination: No (09/26/2016 21:22:Betzy Patricio RN) Frequency of Urination: No (09/26/2016 10:15:Jerome Driscoll RN) Urination Burning: No (09/26/2016 21:22:Betzy Patricio RN) Urination Burning: No (09/26/2016 10:15:Jerome Driscoll RN) CVA Tenderness: No (09/26/2016 21:22:Betzy Patricio RN) CVA Tenderness: No (09/26/2016 10:15:Jerome Driscoll RN) Vaginal Bleeding: None (09/26/2016 10:15:Jerome Driscoll RN) Vaginal Discharge Color: N/A (09/26/2016 10:15:Jerome Driscoll RN) INTEGUMENTARY Skin Color: Normal for Race (09/26/2016 21:22:Betzy Patricio RN) Skin Color: Normal for Race (09/26/2016 10:15:Jerome Driscoll RN) Skin Temperature: Warm (09/26/2016 21:22:Betzy Patricio RN) Skin Temperature: Warm (09/26/2016 10:15:Jerome Driscoll RN) Skin Moisture: Dry (09/26/2016 21:22:Betzy Patricio RN) Skin Moisture: Dry (09/26/2016 10:15:Jerome Driscoll RN) DAO SKIN ASSESSMENT Dao Scale Sensory Perception: No Impairment- Responds to verbal commands. Has no sensory deficit which would limit ability to feel or voice pain or discomfort (09/26/2016 21:22:Betzy Patricio RN) Dao Scale Sensory Perception: No Impairment- Responds to verbal commands. Has no sensory deficit which would limit ability to feel or voice pain or discomfort (09/26/2016 10:15:Jerome Driscoll RN) Dao Scale Moisture: Rarely Moist- Skin is usually dry. Linen only requires changing at routine intervals (09/26/2016 21:22:Betzy Patricio RN) Dao Scale Moisture: Rarely Moist- Skin is usually dry. Linen only requires changing at routine intervals (09/26/2016 10:15:Jerome Driscoll RN) Dao Scale Activity: Walks Frequently- Walks outside the room at least twice a day and inside room at least every 2 hours during the day. (09/26/2016 21:22:Betzy Patricio RN) Dao Scale Activity: Walks Frequently- Walks outside the room at least twice a day and inside room at least every 2 hours during the day. (09/26/2016 10:15:Jerome Driscoll RN) Dao Scale Mobility: No Limitations- Makes major and frequent changes in position without assistance (09/26/2016 21:22:Betzy Patricio RN) Dao Scale Mobility: No Limitations- Makes major and frequent changes in position without assistance (09/26/2016 10:15:Jerome Driscoll RN) Dao Scale Nutrition: Excellent- Eats most of every meal. Never refuses a meal. Usually eats a total of 4 or more servings of meat and dairy products. Occasionally eats between meals. Does not require supplementation (09/26/2016 21:22:Betzy Patricio RN) Dao Scale Nutrition: Excellent- Eats most of every meal. Never refuses a meal. Usually eats a total of 4 or more servings of meat and dairy products. Occasionally eats between meals. Does not require supplementation (09/26/2016 10:15:Jerome Driscoll RN) Dao Scale Friction and Shear: No Apparent Problem- Moves in bed and in chair independently and has sufficient muscle strength to lift up completely during move. Maintains good position in bed or chair at all times (09/26/2016 21:22:Betzy Patricio RN) Dao Scale Friction and Shear: No Apparent Problem- Moves in bed and in chair independently and has sufficient muscle strength to lift up completely during move. Maintains good position in bed or chair at all times (09/26/2016 10:15:Jerome Driscoll RN) Dao Scale Total: 23 (09/26/2016 21:22:QS system process) Dao Scale Total: 23 (09/26/2016 10:15:QS system process) Dao Scale Risk: No Risk of Pressure Ulcer Noted at this Time (09/26/2016 21:22:QS system process) Dao Scale Risk: No Risk of Pressure Ulcer Noted at this Time (09/26/2016 10:15:QS system process) SUPPORT Family Support: Significant Other supportive, at bedside frequently; Family supportive (09/26/2016 21:22:Betzy Patricio RN) Emotional State: Calm/Relaxed (09/26/2016 21:22:Betzy Patricio RN) SAFETY Call Spears Within Reach: Yes (09/26/2016 21:22:Betzy Patricio RN) Call Spears Within Reach: Yes (09/26/2016 10:15:Jerome Driscoll RN) Side Rails Up: Yes (09/26/2016 21:22:Betzy Patricio RN) Side Rails Up: Yes (09/26/2016 10:15:Jerome Driscoll RN) Bed Wheels Locked: Yes (09/26/2016 21:22:Betzy Patricio RN) Bed Wheels Locked: Yes (09/26/2016 10:15:Jerome Driscoll RN) Arm Bands Present: Yes (09/26/2016 21:22:Betzy Patricio RN) Arm Bands Present: Yes (09/26/2016 10:15:Jerome Driscoll RN) Isolation: [place] (09/26/2016 21:22:Betzy Patricio RN) FALL SCREEN Fall Risk History of Falling: (0) No (09/26/2016 21:22:Betzy Patricio RN) Fall Risk History of Falling: (0) No (09/26/2016 10:15:Jerome Driscoll RN) Fall Risk Secondary Diagnosis: (0) No (09/26/2016 21:22:Betzy Patricio RN) Fall Risk Secondary Diagnosis: (0) No (09/26/2016 10:15:Jerome Driscoll RN) Fall Risk Ambulatory Aid: (0) None/Bedrest/Wheelchair/Nurse Assist (09/26/2016 21:22:Betzy Patricio RN) Fall Risk Ambulatory Aid: (0) None/Bedrest/Wheelchair/Nurse Assist (09/26/2016 10:15:Jerome Driscoll RN) Fall Risk IV Therapy: (0) No (09/26/2016 21:22:Betzy Patricio RN) Fall Risk IV Therapy: (0) No (09/26/2016 10:15:Jerome Driscoll RN) Fall Risk Gait: (0) Normal/Bedrest/Immobile (09/26/2016 21:22:Betzy Patricio RN) Fall Risk Gait: (0) Normal/Bedrest/Immobile (09/26/2016 10:15:Jerome Driscoll RN) Fall Risk Mental Status: (0) Oriented to Own Ability (09/26/2016 21:22:Betzy Patricio RN) Fall Risk Mental Status: (0) Oriented to Own Ability (09/26/2016 10:15:Jerome Driscoll RN) Fall Risk Score: 0 (09/26/2016 21:22:QS system process) Fall Risk Score: 0 (09/26/2016 10:15:QS system process) Fall Risk Score Definition: No Risk: No action required (09/26/2016 21:22:QS system process) Fall Risk Score Definition: No Risk: No action required (09/26/2016 10:15:QS system process) RECENT TRAVEL/INFECTIOUS DISEASE Recent Exp Communicable Disease: No (09/26/2016 21:22:Betzy Patricio RN) Cough or Fever: No (09/26/2016 21:22:Betzy Patricio RN) Foreign Travel Past 10 Days: No (09/26/2016 21:22:Betzy Patricio RN) Open Wounds or Sores: No (09/26/2016 21:22:Betzy Patricio RN) Prior Antibiotic Resistance Tx: No (09/26/2016 21:22:Betzy Patricio RN) Cultures Obtained: Not Applicable (09/26/2016 21:22:Betzy Patricio RN) Isolation Initiated: No (09/26/2016 21:22:Betzy Patricio RN) Pt/Family Education: Handwashing Hygiene (09/26/2016 21:22:Betzy Patricio RN) BABY A FHR Baseline Rate (bpm) Baby A: 130 (09/27/2016 00:30:Betzy Patricio RN) FHR Baseline Rate (bpm) Baby A: 130 (09/27/2016 00:00:Betzy Patricio RN) FHR Baseline Rate (bpm) Baby A: 130 (09/26/2016 23:30:Betzy Patricio RN) FHR Baseline Rate (bpm) Baby A: 130 (09/26/2016 23:00:Betzy Patricio RN) FHR Baseline Rate (bpm) Baby A: 135 (09/26/2016 22:30:Betzy Patricio RN) FHR Baseline Rate (bpm) Baby A: 135 (09/26/2016 22:00:Betzy Patricio RN) FHR Baseline Rate (bpm) Baby A: 135 (09/26/2016 21:30:Betzy Patricio RN) FHR Baseline Rate (bpm) Baby A: 130 (09/26/2016 11:26:Jerome Driscoll RN) FHR Baseline Rate (bpm) Baby A: 130 (09/26/2016 11:15:Jerome Driscoll RN) FHR Baseline Rate (bpm) Baby A: 120 (09/26/2016 10:45:Jerome Driscoll RN) Variability Baby A: Moderate 6-25 bpm (09/27/2016 00:30:Betzy Patricio RN) Variability Baby A: Moderate 6-25 bpm (09/27/2016 00:00:Betzy Patricio RN) Variability Baby A: Moderate 6-25 bpm (09/26/2016 23:30:Betzy Patricio RN) Variability Baby A: Moderate 6-25 bpm (09/26/2016 23:00:Betzy Patricio RN) Variability Baby A: Moderate 6-25 bpm (09/26/2016 22:30:Betzy Patricio RN) Variability Baby A: Moderate 6-25 bpm (09/26/2016 22:00:Betzy Patricio RN) Variability Baby A: Moderate 6-25 bpm (09/26/2016 21:30:Betzy Patricio RN) Variability Baby A: Moderate 6-25 bpm (09/26/2016 11:26:Jerome Driscoll RN) Variability Baby A: Moderate 6-25 bpm (09/26/2016 11:15:Jerome Driscoll RN) Variability Baby A: Moderate 6-25 bpm (09/26/2016 10:45:Jerome Driscoll RN) Accelerations Baby A: 15X15 (09/27/2016 00:30:Betzy Patricio RN) Accelerations Baby A: 15X15 (09/27/2016 00:00:Betzy Patricio RN) Accelerations Baby A: 15X15 (09/26/2016 23:30:Betzy Patricio RN) Accelerations Baby A: 15X15 (09/26/2016 23:00:Betzy Patricio RN) Accelerations Baby A: 10X10 (09/26/2016 22:30:Betzy Patricio RN) Accelerations Baby A: 15X15 (09/26/2016 22:00:Betzy Patricio RN) Accelerations Baby A: 10X10 (09/26/2016 21:30:Betzy Patricio RN) Accelerations Baby A: Prolonged (09/26/2016 11:26:Jerome Driscoll RN) Accelerations Baby A: 15X15 (09/26/2016 11:15:Jerome Driscoll RN) Accelerations Baby A: 15X15 (09/26/2016 10:45:Jerome Driscoll RN) Decelerations Baby A: None (09/27/2016 00:30:Betzy Patricio RN) Decelerations Baby A: None (09/27/2016 00:00:Betzy Patricio RN) Decelerations Baby A: None (09/26/2016 23:30:Betzy Patricio RN) Decelerations Baby A: None (09/26/2016 23:00:Betzy Patricio RN) Decelerations Baby A: None (09/26/2016 22:30:Betzy Patricio RN) Decelerations Baby A: None (09/26/2016 22:00:Betzy Patricio RN) Decelerations Baby A: None (09/26/2016 21:30:Betzy Patricio RN) Decelerations Baby A: None (09/26/2016 11:26:Jerome Driscoll RN) Decelerations Baby A: None (09/26/2016 11:15:Jerome Driscoll RN) Decelerations Baby A: None (09/26/2016 10:45:Jerome Driscoll RN) ADDITIONAL COMMENTS Assessment Flag: Admission Assessment (09/26/2016 10:15:QS system process)
== END 2016-09-27 00:47 | disposition home or self-care (01) ==
LOC: LC 20:51
PROVIDERS: ATTEND Specialist
PROC: 4A1HXCZ Monitoring of Products of Conception, Cardiac Rate, External Approach (ICD-10-PCS; principal; 2016-09-26)
DX: O47.1 False labor at or after 37 completed weeks of gestation (principal); Z3A.40 40 weeks gestation of pregnancy
CPT/HCPCS: 59025; 84112; J3490 ×2

== ENCOUNTER 2016-09-27 09:28 | Outpatient (CLI) | payer MEDICAID ==
--- NOTE | 2016-09-27 10:00 | L&D Flow Sheet ---
LD Flowsheet Datetime Report Generated by CPN: 09/27/2016 10:00 Datetime: 09/27/2016 09:52 Frequency (min): regular and frequent (Divina Halsmer, RN) Vaginal Bleeding: Small (Divina Halsmer, RN) Datetime: 09/27/2016 09:50 NBP Sys/[place]/Mean (mmHg): 114 (QS system process) : 64 (QS system process) : 84 (QS system process) Pulse: 105 (QS system process) LaborFlag: Antepartum (QS system process) Datetime: 09/27/2016 09:45 Temperature (F): 98.6 (Divina Mccullough RN) Temperature (C): 37.0 (QS system process) Temperature Route: Oral (Divina Mccullough RN) Pain Scale: 4 (Divina Mccullough RN) Pain Presence: Intermittent (Divina Mccullough RN) Pain Type: Contraction (Divina Mccullough RN) Pain Location: Abdomen; Back; Perineum (Divina Mccullough RN) Pain Goal: 2 (Divina Mccullough RN) Pain Relief Measures: Comfort Measures (Divina Mccullough RN) LaborFlag: Antepartum (QS system process) Datetime: 09/27/2016 00:43 Analgesics/Sedatives: Ambien (mg) @ (Annotations: 5 mg PO) (Betzy Patricio RN) Patient Care Comments: Discussed Dehydration and signs and symptoms of when to return to office or hospital with patient and spouse; both patient and spouse verbalized understanding. (Betzy Patricio RN) Datetime: 09/27/2016 00:35 Dilatation (cm): 1.0 (Betzy Field, RN) Effacement (%): 70 (Betzy Field, RN) Station: -2 (Betzy Field, RN) Exam by: SANKET Chandra (Betzy Field, RN) Datetime: 09/27/2016 00:30 Monitor Mode: External; Palpation (Betzy Field, RN) Frequency (min): 3-6.5 (Betzy Field, RN) Quality: Mild (Betzy Field, RN) Duration (sec): 70-110 (Betzy Field, RN) Resting Tone ([place]): Relaxed (Betzy Field, RN) Monitor Mode: External US (Betzy Field, RN) FHR Baseline Rate : 130 (Betzy Field, RN) Variability: Moderate 6-25 bpm (Betzy Field, RN) Accelerations: 15X15 (Betzy Field, RN) Decelerations: None (Betzy Field, RN) Datetime: 09/27/2016 00:10 NBP Sys/[place]/Mean (mmHg): 120 (QS system process) : 80 (QS system process) : 95 (QS system process) Pulse: 110 (QS system process) LaborFlag: Antepartum (QS system process) Datetime: 09/27/2016 00:00 Monitor Mode: External; Palpation (Betzy Field, RN) Frequency (min): 6-7 (Betzy Field, RN) Quality: Mild (Betzy Field, RN) Duration (sec): 60-140 (Betzy Field, RN) Resting Tone ([place]): Relaxed (Betzy Field, RN) Monitor Mode: External US (Betzy Field, RN) FHR Baseline Rate : 130 (Betzy Field, RN) Variability: Moderate 6-25 bpm (Betzy Field, RN) Accelerations: 15X15 (Betzy Field, RN) Decelerations: None (Betzy Field, RN) Datetime: 09/26/2016 23:47 IV/Blood Work: IV Infusing per Order; New IV Bag Hung (Betzy Patricio RN) Datetime: 09/26/2016 23:40 NBP Sys/[place]/Mean (mmHg): 114 (QS system process) : 79 (QS system process) : 92 (QS system process) Pulse: 109 (QS system process) LaborFlag: Antepartum (QS system process) Datetime: 09/26/2016 23:30 Monitor Mode: External; Palpation (Betzy Patricio RN) Frequency (min): 5.5-6.5 (Betzy Patricio RN) Quality: Mild (Betzy Patricio RN) Duration (sec): 60-130 (Betzy Patricio RN) Resting Tone ([place]): Relaxed (Betzy Patricio RN) Monitor Mode: External US (Betzy Patricio RN) FHR Baseline Rate : 130 (Betzy Patricio RN) Variability: Moderate 6-25 bpm (Betzy Patricio, RN) Accelerations: 15X15 (Betzy Patricio, RN) Decelerations: None (Betzy Patricio, RN) Datetime: 09/26/2016 23:29 Communication: RN Reviewed Strip; Provider Orders Received (Betzy Patricio RN) Communication Comments: Orders received from Dr. Baltazar - if no change in cervix after 2nd bag of LR, patient can be discharged home with Ambien 5 mg PO (Betzy Patricio RN) Datetime: 09/26/2016 23:10 NBP Sys/[place]/Mean (mmHg): 113 (QS system process) : 83 (QS system process) : 93 (QS system process) Pulse: 103 (QS system process) LaborFlag: Antepartum (QS system process) Datetime: 09/26/2016 23:00 Monitor Mode: External; Palpation (Betzy Field, RN) Frequency (min): 5-7.5 (Betzy Field, RN) Quality: Mild (Betzy Field, RN) Duration (sec): 90-110 (Betzy Field, RN) Resting Tone ([place]): Relaxed (Betzy Field, RN) Monitor Mode: External US (Betzy Field, RN) FHR Baseline Rate : 130 (Betzy Field, RN) Variability: Moderate 6-25 bpm (Betzy Field, RN) Accelerations: 15X15 (Betzy Field, RN) Decelerations: None (Betzy Field, RN) Datetime: 09/26/2016 22:40 NBP Sys/[place]/Mean (mmHg): 117 (QS system process) : 71 (QS system process) : 90 (QS system process) Pulse: 117 (QS system process) LaborFlag: Antepartum (QS system process) Datetime: 09/26/2016 22:30 Monitor Mode: External; Palpation (Betzy Field, RN) Frequency (min): 2.5-5 (Betzy Field, RN) Quality: Mild (Betzy Field, RN) Duration (sec): 70-100 (Betzy Field, RN) Resting Tone ([place]): Relaxed (Betzy Field, RN) Monitor Mode: External US (Betzy Field, RN) FHR Baseline Rate : 135 (Betzy Field, RN) Variability: Moderate 6-25 bpm (Betzy Field, RN) Accelerations: 10X10 (Betzy Field, RN) Decelerations: None (Betzy Field, RN) Datetime: 09/26/2016 22:11 NBP Sys/[place]/Mean (mmHg): 126 (QS system process) : 70 (QS system process) : 91 (QS system process) Pulse: 103 (QS system process) LaborFlag: Antepartum (QS system process) Datetime: 09/26/2016 22:09 Communication Comments: Orders received from Dr. Baltazar for 2 bags of LR IV (Betzy Patricio RN) Datetime: 09/26/2016 22:00 Monitor Mode: External; Palpation (Betzy Patricio RN) Frequency (min): 2.5-5.5 (Betzy Patricio RN) Quality: Mild (Betzy Patricio RN) Duration (sec): 70-80 (Betzy Patricio RN) Resting Tone (Palpate): Relaxed (Betzy Patricio RN) Monitor Mode: External US (Betzy Patricio RN) FHR Baseline Rate : 135 (Betzy Patricio RN) Variability: Moderate 6-25 bpm (Betzy Patricio RN) Accelerations: 15X15 (Betzy Patricio RN) Decelerations: None (Betzy Patricio RN)
[2016-09-27 10:19] LABS: APPEARANCE,URINE CLOUDY; BILIRUBIN,URINE NEGATIVE (NEGATIVE); GLUCOSE, URINE NEGATIVE (NEGATIVE); KETONES,URINE 20 mg/dL (NEGATIVE); LEUKOCYTE ESTERASE,URINE LARGE (NEGATIVE); NITRITE,URINE NEGATIVE (NEGATIVE); PROTEIN,URINE NEGATIVE (NEGATIVE); URINE SPECIFIC GRAVITY 1.015; UROBILINOGEN,URINE NEGATIVE mg/dL (<2.0)
[2016-09-27 10:38] LABS: URINE BARBITURATES SCREEN NEGATIVE; URINE METHADONE SCREEN NEGATIVE; URINE OPIATES LOW NEGATIVE; URINE PHENCYCLIDINE SCREEN NEGATIVE
[2016-09-27] MEDS ORDERED: ZOLPIDEM TARTRATE 5 MG TABLET ONE (11:51)
--- NOTE | 2016-09-27 12:00 | L&D Flow Sheet ---
LD Flowsheet Datetime Report Generated by CPN: 09/27/2016 12:00 Datetime: 09/27/2016 11:33 NBP Sys/Skylar/Mean (mmHg): 116 (QS system process) : 67 (QS system process) : 84 (QS system process) Pulse: 117 (QS system process) LaborFlag: Antepartum (QS system process) Datetime: 09/27/2016 11:32 Patient Position/Activity: Right Lateral; Low Fowlers (Shannon Seymour, RN) Datetime: 09/27/2016 10:22 Monitor Mode: External; Palpation (Divina Mccullough, SANKET) Frequency (min): 4-7 (Divina Mccullough RN) Quality: Mild/Moderate (Divina Mccullough, RN) Duration (sec): 60-120 (Divina Mccullough, RN) Duration Criteria: Less than Two 120 Second Contractions (Divina Mccullough, RN) Resting Tone (Palpate): Relaxed (Divina Mccullough, RN) Monitor Mode: External US (Divina Mccullough, RN) FHR Baseline Rate : 130 (Divina Mccullough, RN) FHR Baseline Changes: No Baseline Change (Divina Mccullough, RN) Variability: Moderate 6-25 bpm (Divina Cheemaer, RN) Accelerations: 15X15 (Divina Cheemaer, RN) Decelerations: None (Divina Mccullough, RN) Communication: Provider Orders Received (Divina Mccullough, RN) Communication Comments: Sapna MCCLURE CNM REPORT GIVEN AND ORDERS RECEIVED TO LET PT AMBULATE ON SECOND FLOOR FOR UP TO ONE HOUR. PT'S MONITORS REMOVED. PT IN STABLE CONDITION AND AMBULATING WITH FOB UNDERSTANDS INSTRUCTIONS TO RETURN FOR ANY REASON. EXTRA GOWN GIVEN. (Divina Dneier, RN) Datetime: 09/27/2016 10:21 NBP Sys/Skylar/Mean (mmHg): 108 (QS system process) : 58 (QS system process) : 76 (QS system process) Pulse: 106 (QS system process) LaborFlag: Antepartum (QS system process) Datetime: 09/27/2016 10:02 I/O Interventions: Ice Chips Given; Popsicle (Divina Mccullough RN)
== END 2016-09-27 12:08 | disposition home or self-care (01) ==
LOC: LC 09:28
PROVIDERS: ATTEND Obstetrics & Gynecology
PROC: 4A1HXCZ Monitoring of Products of Conception, Cardiac Rate, External Approach (ICD-10-PCS; principal; 2016-09-27)
DX: O47.1 False labor at or after 37 completed weeks of gestation (principal); Z3A.40 40 weeks gestation of pregnancy
CPT/HCPCS: 59025; 81005; 80307; J3490

== ENCOUNTER 2016-09-27 17:16 | Inpatient (IN) | payer MEDICAID ==
[2016-09-27] MEDS ORDERED: NALBUPHINE HCL INJ 10 MG/1 ML AMPULE ONE (17:50)
[2016-09-27] MEDS ORDERED: PHENYLEPHRINE HCL INJ/PF 10 MG/1 ML SDV ONE (17:50)
[2016-09-27] MEDS ORDERED: ONDANSETRON HCL INJ/PF 4 MG/2 ML SDV ONE (17:56)
--- NOTE | 2016-09-27 18:00 | L&D Flow Sheet ---
LD Flowsheet Datetime Report Generated by CPN: 09/27/2016 18:00 Datetime: 09/27/2016 17:52 NBP Sys/Skylar/Mean (mmHg): 131 (QS system process) : 84 (QS system process) : 101 (QS system process) Pulse: 113 (QS system process) LaborFlag: Antepartum (QS system process) Datetime: 09/27/2016 17:43 Patient Care Comments: c/o "gush of luid" amnisure collected and sent (Divina Harding RN) Datetime: 09/27/2016 17:39 Procedures: Consents Signed (Divina Halsmer, RN) Instructional Method: Demo; Verbal; Written; Patient Instructed; Family/Support Person Instructed; Verbalized Understanding (Divina Halsmer, RN) Unit Routine: Consents Signed (Divina Halsmer, RN) Datetime: 09/27/2016 17:36 IV/Blood Work: IV Started; IV Bolus Started (Divina Halsmer, RN) Patient Care Comments: 18g jelco placed in left wrist on first attempt LR 1000ml bag infusing via gravity for 300 ml bolus (Divina Halsmer, RN) Datetime: 09/27/2016 17:21 NBP Sys/Skylar/Mean (mmHg): 113 (QS system process) : 73 (QS system process) : 87 (QS system process) Pulse: 125 (QS system process) Respirations: 22 (Divina Harding RN) Temperature (F): 97.8 (Divina Harding RN) Temperature (C): 36.6 (QS system process) LaborFlag: Antepartum (QS system process) Datetime: 09/27/2016 17:18 Dilatation (cm): 4.0 (Divina Harding RN) Effacement (%): 90 (Divina Harding RN) Station: 0 (Divina Harding RN) Exam by: Sayda HARDING RN (Divina Harding RN) Vaginal Bleeding: None (Divina Harding RN) Cervix, Consistency: Soft (Divina Harding RN) Cervix, Position: Anterior (Divina Harding RN)
[2016-09-27 18:05] LABS: AMNISURE (ROM) POSITIVE (NEGATIVE)
[2016-09-27 18:18] LABS: ABSOLUTE EOSINOPHILS # (AUTO) 0.1 10^3/uL (0.0-0.6); ABSOLUTE MONOCYTES (AUTO) 0.8 10^3/uL (0.1-1.4); BASOPHILS % (AUTO) 0.3 % (0-2); EOSINOPHILS % (AUTO) 0.6 % (0-6); HEMATOCRIT 33.4 % (36.0-47.0); HEMOGLOBIN 10.9 g/dL (12.0-15.5); HGB HCT DIFFERENCE -0.7; LYMPHOCYTES % (AUTO) 14.4 % (13-45); MEAN CORPUSCULAR HEMOGLOBIN 27.4 pg (27.0-33.4); MEAN CORPUSCULAR HGB CONC 32.7 g/dL (32.0-36.0); MEAN CORPUSCULAR VOLUME 84 fl (80-97); RED BLOOD COUNT 3.99 10^6/uL (3.72-5.28); RED CELL DISTRIBUTION WIDTH 14.7 % (11.5-14.0); SEGMENTED NEUTROPHILS % (AUTO) 78.7 % (42-78); WHITE BLOOD COUNT 13.9 10^3/uL (4.0-10.5)
[2016-09-27] MEDS ORDERED: OXYTOCIN/NORMAL SALINE 0 UNIT/0 ML RTUINJ ONE (19:13)
[2016-09-27 19:37] LABS: ADD HIVPANEL? NO; HIV (1 AND 2) ANTIBODY NEGATIVE (NEGATIVE)
--- NOTE | 2016-09-27 20:00 | L&D Flow Sheet ---
LD Flowsheet Datetime Report Generated by CPN: 09/27/2016 20:00 Datetime: 09/27/2016 19:51 NBP Sys/Skylar/Mean (mmHg): 123 (QS system process) : 83 (QS system process) : 98 (QS system process) Pulse: 105 (QS system process) LaborFlag: Antepartum (QS system process) Datetime: 09/27/2016 19:45 Respirations: 18 (Cami Gutierrez) Monitor Mode: External; Palpation (Cami Gutierrez) Monitor Interventions for UA: [place] Adjusted (Cami Gutierrez) Frequency (min): 4-6 (Cami Gutierrez) Quality: Mild/Moderate (Cami Gutierrez) Duration (sec): 70-90 (Cami Gutierrez) Resting Tone (Palpate): Relaxed (Cami Gutierrez) Monitor Mode: External US (Cami Gutierrez) Monitor Interventions for FHR: Ultrasound Adjusted (Cami Gutierrez) FHR Baseline Rate : 125 (Cami Gutierrez) FHR Baseline Changes: No Baseline Change (Cami Gutierrez) Variability: Moderate 6-25 bpm (Cami Gutierrez) Accelerations: 15X15 (Cami Gutierrez) Decelerations: None (Cami Gutierrez) Pitocin (milliunit): Pitocin Increased to (milliunits) @ (Annotations: 4) (Cami Gutierrez) Patient Position/Activity: Right Lateral (Cami Gutierrez) LaborFlag: Antepartum (QS system process) Datetime: 09/27/2016 19:30 Respirations: 18 (Cami Gutierrez) Monitor Mode: External; Palpation (Cami Gutierrez) Monitor Interventions for UA: [place] Adjusted (Cami Gutierrez) Frequency (min): 4-6 (Cami Gutierrez) Quality: Mild/Moderate (Cami Gutierrez) Duration (sec): 80-110 (Cami Gutierrez) Resting Tone (Palpate): Relaxed (Cami Gutierrez) Monitor Mode: External US (Cami Gutierrez) Monitor Interventions for FHR: Ultrasound Adjusted (Cami Gutierrez) FHR Baseline Rate : 125 (Cami Gutierrez) FHR Baseline Changes: No Baseline Change (Cami Gutierrez) Variability: Moderate 6-25 bpm (Cami Gutierrez) Accelerations: 15X15 (Cami Gutierrez) Decelerations: None (Cami Gutierrez) Patient Position/Activity: Right Lateral (Cami Gutierrez) LaborFlag: Antepartum (QS system process) Datetime: 09/27/2016 19:21 NBP Sys/Skylar/Mean (mmHg): 112 (QS system process) : 77 (QS system process) : 90 (QS system process) Pulse: 92 (QS system process) LaborFlag: Antepartum (QS system process) Datetime: 09/27/2016 19:20 Respirations: 18 (Cami Gutierrez) Temperature (F): 98.1 (Cami Gutierrez) Temperature (C): 36.7 (QS system process) Temperature Route: Oral (Cami Gutierrez) Pain Scale: 2 (Cami Gutierrez) Pain Presence: Intermittent (Cami Gutierrez) Pain Type: Cramping (Cami Gutierrez) Pain Location: Abdomen; Back (Cami Gutierrez) Pain Goal: 0 (Cami Gutierrez) Pain Relief Measures: Comfort Measures (Cami Gutierrez) Level of Consciousness: Fully Conscious (Cami Gutierrez) DTR's/Clonus: DTRs 2+; No Clonus (Cami Gutierrez) Headache: Denies (Cami Gutierrez) Breath Sounds, Left: Clear and Equal (Cami Gutierrez) Breath Sounds, Right: Clear and Equal (Cami Gutierrez) Nausea/Vomiting: Denies (Cami Gutierrez) RUQ Epigastric Pain: Denies (Cami Gutierrez) IV/Blood Work: IV Infusing per Order (Annotations: LR 125ml/hr) (Cami Gutierrez) LaborFlag: Antepartum (QS system process) Datetime: 09/27/2016 19:15 Respirations: 18 (Cami Gutierrez) Monitor Mode: External; Palpation (Cami Gutierrez) Monitor Interventions for UA: [place] Adjusted (Cami Gutierrez) Frequency (min): 4-6 (Cami Gutierrez) Quality: Mild/Moderate (Cami Gutierrez) Duration (sec): 70-90 (Cami Gutierrez) Resting Tone (Palpate): Relaxed (Cami Gutierrez) Monitor Mode: External US (Cami Gutierrez) Monitor Interventions for FHR: Ultrasound Adjusted (Cami Gutierrez) FHR Baseline Rate : 130 (Cami Gutierrez) Variability: Moderate 6-25 bpm (Cami Gutierrez) Accelerations: 15X15 (Cami Gutierrez) Decelerations: None (Cami Gutierrez) Pitocin (milliunit): Pitocin Started (milliunits) @ (Annotations: 2) (Cami Gutierrez) Patient Position/Activity: Left Tilt; High Fowlers (Cami Gutierrez) LaborFlag: Antepartum (QS system process) Datetime: 09/27/2016 19:00 Monitor Mode: External (Divina Halsmer, RN) Frequency (min): 6-10 (Divina Halsmer, RN) Quality: Mild/Moderate (Divina Halsmer, RN) Duration (sec): 60-100 (Divina Halsmer, RN) Duration Criteria: Less than Two 120 Second Contractions (Divina Halsmer, RN) Resting Tone (Palpate): Relaxed (Divina Halsmer, RN) Monitor Mode: External US (Divina Halsmer, RN) FHR Baseline Rate : 130 (Divina Halsmer, RN) FHR Baseline Changes: No Baseline Change (Divina Halsmer, RN) Variability: Moderate 6-25 bpm (Divina Halsmer, RN) Decelerations: None (Divina Halsmer, RN) Datetime: 09/27/2016 18:52 I/O Interventions: Up to BR (Divina Halsmer, RN) Datetime: 09/27/2016 18:51 NBP Sys/Skylar/Mean (mmHg): 114 (QS system process) : 75 (QS system process) : 90 (QS system process) Pulse: 89 (QS system process) Respirations: 18 (Divina Mccullough RN) Pain Scale: 3 (Divina Mccullough RN) Pain Presence: Intermittent (Divina Mccullough RN) Pain Type: Contraction (Divina Mccullough RN) Pain Location: Abdomen (Divina Mccullough RN) Pain Goal: 2 (Divina Mccullough RN) Pain Relief Measures: Comfort Measures (Divina Mccullough RN) Pain Coping: Talking Through Contractions (iDvina Mccullough RN) LaborFlag: Antepartum (QS system process) Datetime: 09/27/2016 18:36 Frequency (min): 2-3 MINS APART (Divina Mccullough RN) Membrane Status: Ruptured (Divina Mccullough RN) Membranes Rupture Method: Spontaneous (Divina Mccullough RN) Amniotic Fluid Color: Clear (Divina Mccullough RN) Amniotic Fluid Amount: Small (Divina Mccullough RN) Amniotic Fluid Odor: Normal (Divina Mccullough RN) Vaginal Bleeding: None (Divina Mccullough RN) Dilatation (cm): 3-4 cms (Divina Mccullough RN) Effacement: >80_ effaced (Divina Mccullough RN) Station: minus 1 to 0 (Divina Mccullough RN) Consistency: Soft (Divina Halsmer, RN) Position: Anterior (Divina Mccullough RN) Total Broussard's Score: 11 (QS system process) : 9-14 = Usually no failure for induction (QS system process) Level of Consciousness: Fully Conscious (Divina Mccullough RN) DTR's/Clonus: DTRs 3+ (Divina Mccullough RN) Headache: Denies (Divina Mccullough RN) Breath Sounds, Left: Clear and Equal (Divina Mccullough RN) Breath Sounds, Right: Clear and Equal (Divina Mccullough RN) Nausea/Vomiting: Denies (Divina Mccullough RN) RUQ Epigastric Pain: Denies (Divina Mccullough RN) Instructional Method: Demo; Verbal; Written; Patient Instructed; Family/Support Person Instructed; Verbalized Understanding (Divina Mccullough RN) Plan of Care: Plan of Care Discussed; Vaginal Delivery; Labor (Divina Mccullough RN) Unit Routine: [place] to Room; Call [place]; Bed; Visiting Policy; Waiting Areas; Consents Signed; Bathroom Privileges; Medications (Divina Mccullough RN) Labor/Induction: Labor Stages; Augmentation (Divina Mccullough RN) Pain Management: IV Narcotics; Epidural; Pain Scale/Goals; Comfort Measures (Divina Mccullough RN) Medications: IV Narcotics (Divina Mccullough RN) PTL/PROM: Hydration (Divina Mccullough RN) Related: Hydration (Divina Mccullough RN) Grief Support: Procedure/Plan; Medications (Divina Mccullough RN) Datetime: 09/27/2016 18:30 Monitor Mode: External (Divina Halsmer, RN) Frequency (min): 5-8 (Divina Halsmer, RN) Quality: Mild/Moderate (Divina Halsmer, RN) Duration (sec): 60-80 (Divina Halsmer, RN) Duration Criteria: Less than Two 120 Second Contractions (Divina Halsmer, RN) Resting Tone (Palpate): Relaxed (Divina Halsmer, RN) Monitor Mode: External US (Divina Halsmer, RN) FHR Baseline Rate : 130 (Divina Halsmer, RN) FHR Baseline Changes: No Baseline Change (Divina Halsmer, RN) Variability: Moderate 6-25 bpm (Divina Halsmer, RN) Decelerations: None (Divina Halsmer, RN) Datetime: 09/27/2016 18:10 Analgesics/Sedatives: Nubain (mg) @ 10 (Divina Jeffreysmer, RN) Antiemetics/Antacids: Zofran IV (mg) @ 4 (Divina Halsmer, RN) Datetime: 09/27/2016 18:00 Monitor Mode: External; Palpation (Divina Halsmer, RN) Frequency (min): 3-5 (Divina Mccullough RN) Quality: Mild/Moderate (Divina Mccullough RN) Duration (sec): 40-60 (Divina Mccullough RN) Duration Criteria: Less than Two 120 Second Contractions (Divina Mccullough RN) Resting Tone (Palpate): Relaxed (Divina Mccullough RN) Monitor Mode: External US (Divina Mccullough RN) FHR Baseline Rate : 125 (Divina Mccullough RN) FHR Baseline Changes: No Baseline Change (Divina Mccullough RN) Variability: Moderate 6-25 bpm (Divina Mccullough RN) Accelerations: 15X15 (Divina Mccullough RN) Decelerations: None (Divina Mccullough RN)
[2016-09-27] MEDS ORDERED: BUPIVACAINE HCL 0.25 % INJ/PF (2.5 MG/1 ML) 30 ML VIAL ONE (20:19)
[2016-09-27] MEDS ORDERED: EPHEDRINE SULFATE INJ 50 MG/1 ML AMPULE ONE (20:19)
[2016-09-27] MEDS ORDERED: FENTANYL/BUPIVACAINE/NS/PF 200 MCG/100 ML RTUINJ EPI ONE (20:19)
[2016-09-27] MEDS ORDERED: MISOPROSTOL 0.2 MG TABLET ONE (20:20)
[2016-09-27] MEDS ORDERED: OXYTOCIN/NORMAL SALINE 20 UNIT/1,000 ML RTUINJ ONE (20:20)
[2016-09-27] MEDS ORDERED: LIDOCAINE 1% INJ-PF (10 MG/ML) 30 ML SDV ONE (20:20)
--- NOTE | 2016-09-27 22:01 | L&D Flow Sheet ---
LD Flowsheet Datetime Report Generated by CPN: 09/27/2016 22:00 Datetime: 09/27/2016 21:54 NBP Sys/Skylar/Mean (mmHg): 108 (QS system process) : 65 (QS system process) : 81 (QS system process) Pulse: 93 (QS system process) LaborFlag: Antepartum (QS system process) Datetime: 09/27/2016 21:43 Pitocin (milliunit): Pitocin Increased to (milliunits) @ (Annotations: 6) (Cami Gutierrez) Datetime: 09/27/2016 21:30 Respirations: 18 (Cami Gutierrez) Monitor Mode: External; Palpation (Cami Gutierrez) Monitor Interventions for UA: [place] Adjusted (Cami Gutierrez) Frequency (min): 2-4 (Cami Gutierrez) Quality: Moderate (Cami Gutierrez) Duration (sec): 70-100 (Cami Gutierrez) Resting Tone (Palpate): Relaxed (Cami Gutierrez) Monitor Mode: External US (Cami Gutierrez) Monitor Interventions for FHR: Ultrasound Adjusted (Cami Gutierrez) FHR Baseline Rate : 130 (Cami Gutierrez) FHR Baseline Changes: No Baseline Change (Cami Gutierrez) Variability: Moderate 6-25 bpm (Cami Gutierrez) Accelerations: 15X15 (Cami Gutierrez) Decelerations: None (Cami Gutierrez) Pitocin (milliunit): Pitocin Remains (milliunits) @ (Annotations: 4) (Cami Gutierrez) Patient Position/Activity: Right Tilt (Cami Gutierrez) LaborFlag: Antepartum (QS system process) Datetime: 09/27/2016 21:24 NBP Sys/Skylar/Mean (mmHg): 122 (QS system process) : 80 (QS system process) : 91 (QS system process) Pulse: 114 (QS system process) LaborFlag: Antepartum (QS system process) Datetime: 09/27/2016 21:23 NBP Sys/Skylar/Mean (mmHg): 120 (QS system process) : 57 (QS system process) : 80 (QS system process) LaborFlag: Antepartum (QS system process) Datetime: 09/27/2016 21:22 NBP Sys/Skylar/Mean (mmHg): 116 (QS system process) : 66 (QS system process) : 86 (QS system process) Pulse: 108 (QS system process) Dilatation (cm): 7.0 (Cami Gutierrez) Effacement (%): 90 (Cami Gutierrez) Station: 0 (Cami Gutierrez) Exam by: Ever Gutierrez Rn (Cami Gutierrez) LaborFlag: Antepartum (QS system process) Datetime: 09/27/2016 21:20 NBP Sys/Skylar/Mean (mmHg): 113 (QS system process) : 60 (QS system process) : 81 (QS system process) Pulse: 111 (QS system process) I/O Interventions: Kelly Cath Inserted (Misty Cordoba RN) Patient Care Comments: cristine Gutierrez RN (Misty Cordoba RN) LaborFlag: Antepartum (QS system process) Datetime: 09/27/2016 21:19 NBP Sys/Skylar/Mean (mmHg): 117 (QS system process) : 64 (QS system process) : 83 (QS system process) Pulse: 109 (QS system process) LaborFlag: Antepartum (QS system process) Datetime: 09/27/2016 21:18 NBP Sys/Skylar/Mean (mmHg): 117 (QS system process) : 67 (QS system process) : 86 (QS system process) Pulse: 104 (QS system process) LaborFlag: Antepartum (QS system process) Datetime: 09/27/2016 21:17 NBP Sys/Skylar/Mean (mmHg): 112 (QS system process) NBP Sys/Skylar/Mean (mmHg): 114 (QS system process) : 69 (QS system process) : 67 (QS system process) : 84 (QS system process) : 85 (QS system process) Pulse: 115 (QS system process) Pulse: 103 (QS system process) LaborFlag: Antepartum (QS system process) Datetime: 09/27/2016 21:16 NBP Sys/Skylar/Mean (mmHg): 112 (QS system process) : 63 (QS system process) : 81 (QS system process) Pulse: 117 (QS system process) LaborFlag: Antepartum (QS system process) Datetime: 09/27/2016 21:15 FHR Baseline Changes: Unable to Determine (Cami Gutierrez) Pitocin (milliunit): Pitocin Remains (milliunits) @ (Annotations: 4 ) (Cami Gutierrez) Patient Care Comments: patient sitting for epidural (Cami Gutierrez) Epidural Procedure Other: Pump Started (Misty Cordoba, RN) Datetime: 09/27/2016 21:14 NBP Sys/Skylar/Mean (mmHg): 120 (QS system process) NBP Sys/Skylar/Mean (mmHg): 125 (QS system process) : 72 (QS system process) : 81 (QS system process) : 89 (QS system process) : 97 (QS system process) Pulse: 105 (QS system process) Pulse: 106 (QS system process) LaborFlag: Antepartum (QS system process) Datetime: 09/27/2016 21:13 NBP Sys/Skylar/Mean (mmHg): 133 (QS system process) : 87 (QS system process) : 105 (QS system process) Pulse: 115 (QS system process) LaborFlag: Antepartum (QS system process) Datetime: 09/27/2016 21:12 NBP Sys/Skylar/Mean (mmHg): 137 (QS system process) : 89 (QS system process) : 106 (QS system process) Pulse: 100 (QS system process) Epidural Procedure: Cath Placed (iMsty Cordoba, RN) LaborFlag: Antepartum (QS system process) Datetime: 09/27/2016 21:11 NBP Sys/Skylar/Mean (mmHg): 135 (QS system process) : 85 (QS system process) : 106 (QS system process) Pulse: 107 (QS system process) Epidural Procedure: Loading Dose (Misty Beryl, RN) Epidural Procedure: Test Dose (Misty Beryl, RN) LaborFlag: Antepartum (QS system process) Datetime: 09/27/2016 21:10 Comments: maternal sitting for epidural (Cami Gutierrez) Datetime: 09/27/2016 21:06 NBP Sys/Skylar/Mean (mmHg): 134 (QS system process) : 88 (QS system process) : 107 (QS system process) Pulse: 99 (QS system process) LaborFlag: Antepartum (QS system process) Datetime: 09/27/2016 21:05 Comments: maternal sitting for epidural (Cami Gutierrez) Datetime: 09/27/2016 21:00 Respirations: 18 (Cami Gutierrez) Monitor Mode: External; Palpation (Cami Gutierrez) Monitor Interventions for UA: [place] Adjusted (Cami Gutierrez) Frequency (min): 2-4 (Cami Gutierrez) Quality: Moderate (Cami Gutierrez) Duration (sec): 60-80 (Cami Gutierrez) Resting Tone (Palpate): Relaxed (Cami Gutierrez) Monitor Mode: External US (Cami Gutierrez) Monitor Interventions for FHR: Ultrasound Adjusted (Cami Gutierrez) FHR Baseline Rate : 125 (Cami Gutierrez) FHR Baseline Changes: No Baseline Change (Cami Gutierrez) Variability: Moderate 6-25 bpm (Cami Gutierrez) Accelerations: 10X10 (Cami Gutierrez) Decelerations: None (Cami Gutierrez) Pitocin (milliunit): Pitocin Remains (milliunits) @ (Annotations: 4) (Cami Gutierrez) Patient Care Comments: patient sitting for epidural (Cami Gutierrez) LaborFlag: Antepartum (QS system process) Datetime: 09/27/2016 20:59 Procedure Verify: Correct Patient Identity; Correct Side and Site are Marked; Accurate Procedure Consent Form; Agreement on Procedure to be Done; Correct Patient Position; Relevant Images and Results are Properly Labeled and Displayed; Addressed Need to Administer Antibiotics or Fluids for Irrigation; Safety Precautions Based on Patient History or Medication Use (Misty Cordoba RN) Anesthesia Comments: Dr Escobar in room (Misty Cordoba RN) Datetime: 09/27/2016 20:52 NBP Sys/Skylar/Mean (mmHg): 123 (QS system process) : 70 (QS system process) : 91 (QS system process) Pulse: 109 (QS system process) LaborFlag: Antepartum (QS system process) Datetime: 09/27/2016 20:48 Pitocin (milliunit): Pitocin Decreased to (milliunits) @ (Annotations: 4) (Cami Gutierrez) Datetime: 09/27/2016 20:45 Respirations: 18 (Cami Gutierrez) Monitor Mode: External; Palpation (Cami Gutierrez) Monitor Interventions for UA: [place] Adjusted (Cami Gutierrez) Frequency (min): 2-4 (Cami Gutierrez) Quality: Moderate (Cami Gutierrez) Duration (sec): 60-80 (Cami Gutierrez) Resting Tone (Palpate): Relaxed (Cami Gutierrez) Monitor Mode: External US (Cami Gutierrez) Monitor Interventions for FHR: Ultrasound Adjusted (Cami Gutierrez) FHR Baseline Rate : 130 (Cami Gutierrez) FHR Baseline Changes: No Baseline Change (Cami Gutierrez) Variability: Moderate 6-25 bpm (Cami Gutierrez) Accelerations: 10X10 (Cami Gutierrez) Decelerations: None (Cami Gutierrez) Patient Position/Activity: Right Lateral (Cami Gutierrez) LaborFlag: Antepartum (QS system process) Datetime: 09/27/2016 20:30 Respirations: 18 (Cami Gutierrez) Monitor Mode: External; Palpation (Cami Gutierrez) Monitor Interventions for UA: [place] Adjusted (Cami Gutierrez) Frequency (min): 2-4 (Cami Gutierrez) Quality: Moderate (Cami Gutierrez) Duration (sec): 60-80 (Cami Gutierrez) Resting Tone (Palpate): Relaxed (Cami Gutierrez) Monitor Mode: External US (Cami Gutierrez) Monitor Interventions for FHR: Ultrasound Adjusted (Cami Gutierrez) FHR Baseline Rate : 130 (Cami Gutierrez) FHR Baseline Changes: No Baseline Change (Cami Gutierrez) Variability: Moderate 6-25 bpm (Cami Gutierrez) Accelerations: 15X15 (Cami Gutierrez) Decelerations: None (Cami Gutierrez) Patient Position/Activity: Right Lateral (Cami Gutierrez) Procedure Type: epidural (Cami Gutierrez) Procedure Verify: Correct Patient Identity; Correct Side and Site are Marked; Accurate Procedure Consent Form; Agreement on Procedure to be Done; Correct Patient Position; Relevant Images and Results are Properly Labeled and Displayed; Safety Precautions Based on Patient History or Medication Use (Cami Gutierrez) LaborFlag: Antepartum (QS system process) Datetime: 09/27/2016 20:21 NBP Sys/Skylar/Mean (mmHg): 99 (QS system process) : 63 (QS system process) : 75 (QS system process) Pulse: 91 (QS system process) LaborFlag: Antepartum (QS system process) Datetime: 09/27/2016 20:15 Respirations: 18 (Cami Gutierrez) Monitor Mode: External; Palpation (Cami Gutierrez) Monitor Interventions for UA: [place] Adjusted (Cami Gutierrez) Frequency (min): 2-4 (Cami Gutierrez) Quality: Mild/Moderate (Cami Gutierrez) Duration (sec): 60-80 (Cami Gutierrez) Resting Tone (Palpate): Relaxed (Cami Gutierrez) Monitor Mode: External US (Cami Gutierrez) Monitor Interventions for FHR: Ultrasound Adjusted (Cami Gutierrez) FHR Baseline Rate : 125 (Cami Gutierrez) FHR Baseline Changes: No Baseline Change (Cami Gutierrez) Variability: Moderate 6-25 bpm (Cami Gutierrez) Accelerations: 15X15 (Cami Gutierrez) Decelerations: Variable (Cami Gutierrez) Dilatation (cm): 6.0 (Cami Gutierrez) Effacement (%): 90 (Cami Gutierrez) Station: 0 (Cami Gutierrez) Exam by: Ever Gutierrez Rn (Cami Gutierrez) Pitocin (milliunit): Pitocin Remains (milliunits) @ (Annotations: 6 ) (Cami Gutierrez) Patient Position/Activity: Left Lateral (Cami Gutierrez) LaborFlag: Antepartum (QS system process) Datetime: 09/27/2016 20:10 Comments: rn at the bedside for eval (Cami Gutierrez) Patient Position/Activity: Left Lateral (Cami Gutierrez) Datetime: 09/27/2016 20:00 Respirations: 18 (Cami Gutierrez) Monitor Mode: External; Palpation (Cami Gutierrez) Monitor Interventions for UA: [place] Adjusted (Cami Gutierrez) Frequency (min): 4-6 (Cami Gutierrez) Quality: Mild/Moderate (Cami Gutierrez) Duration (sec): 70-90 (Cami Gutierrez) Resting Tone (Palpate): Relaxed (Cami Gutierrez) Monitor Mode: External US (Cami Gutierrez) Monitor Interventions for FHR: Ultrasound Adjusted (Cami Gutierrez) FHR Baseline Rate : 130 (Cami Gutierrez) FHR Baseline Changes: No Baseline Change (Cami Gutierrez) Variability: Moderate 6-25 bpm (Cami Gutierrez) Accelerations: 15X15 (Cami Gutierrez) Decelerations: None (Cami Gutierrez) Pitocin (milliunit): Pitocin Increased to (milliunits) @ (Annotations: 6) (Cami Gutierrez) Patient Position/Activity: Right Lateral (Camizahraa Gutierrez) Procedure Type: epidural (Camizahraa Gutierrez) Procedure Verify: Correct Patient Identity; Correct Side and Site are Marked; Accurate Procedure Consent Form; Agreement on Procedure to be Done; Correct Patient Position; Relevant Images and Results are Properly Labeled and Displayed; Safety Precautions Based on Patient History or Medication Use (Camizahraa Gutierrez) LaborFlag: Antepartum (QS system process)
[2016-09-28] MEDS ORDERED: BENZOCAINE/MENTHOL AEROSOL SPRAY 56 ML TOP PRN (02:23)
[2016-09-28] MEDS ORDERED: MEASLES,MUMPS&RUBELLA VACC/PF 0.5 ML VIAL SUBCUT PRN (02:23)
[2016-09-28] MEDS ORDERED: DIBUCAINE 1% OINTMENT 28 GM TP PRN (02:23)
[2016-09-28] MEDS ORDERED: ACETAMINOPHEN WITH CODEINE #3 TABLET PO PRN ×2 (02:23)
[2016-09-28] MEDS ORDERED: DIPH/PERTUSS(ACELL)/TETANUS VAC/PF 0.5 ML SYR (>=10YO) IM PRN (02:23)
[2016-09-28] MEDS ORDERED: OXYTOCIN/NORMAL SALINE 1,000 ML IV PRN (02:23)
[2016-09-28] MEDS ORDERED: ZOLPIDEM TARTRATE 5 MG TABLET PO PRN (02:23)
--- NOTE | 2016-09-28 02:42 | Admission Physical ---
Datetime Report Generated by CPN: 09/28/2016 02:41 CURRENT ADMISSION Chief Complaint: Uterine Contractions Indication for Induction: Not Applicable Admit Impression- Other: 4 cm on return to L_D Admit Plan: Admit to Unit; Initiate Labor Protocol ALLERGIES Medication Allergies: No Medication Allergies: No Known Allergies (09/27/2016) Medication Allergies: No Known Allergies (09/26/2016) Latex: No Latex Allergies Food Allergies: NONE Environmental Allergies: NONE OBSTETRICAL HISTORY EDC: 09/25/2016 00:00 : 1 Para: 0 Term: 0 : 0 SAB: 0 IAB: 0 Ectopic: 0 Livin Cesareans: 0 VBACs: 0 Multiple Births: 0 Gestational Diabetes: No Rh Sensitization: No Incompetent Cervix: No HAL: No Infertility: No ART Treatment: No Uterine Anomaly: No IUGR: No Hx Previous C/S: No Macrosomia: No Hx Loss/Stillborn: No PIH: No Hx : No Placenta Previa/Abruption: No Depression/PP Depression: No PTL/PROM: No Post Hemorrhage: No Current Procedures: Ultrasound Obstetrical History Comments: G1 Current SEE RECORDS Alcohol: No Marijuana : No Cocaine: No Other Illicit Drugs: No Cigarettes: Never Smoker. [id number] MEDICAL HISTORY Diabetes: No Blood Transfusion: No Pulmonary Disease (Asthma, TB): No Breast Disease: No Hypertension: No Processing Spec Surgery: No Heart Disease: No Hosp/Surgery: No Autoimmune Disorder: No Anesthetic Complications: No Kidney Disease: No Abnormal Pap Smear: No Neuro/Epilepsy: No Psychiatric Disorders: Yes Other Medical Diseases: No Hepatitis/Liver Disease: No Significant Family History: No Varicosities/Phlebitis: No Trauma/Violence : No Thyroid Dysfunction: No Medical History Comments: Anxiety; Hx Pancreatitis and elevated lipase; Anemia; Vertigo INFECTIOUS HISTORY Gonorrhea: No Genital Herpes: No Chlamydia: No Tuberculosis: No Syphilis: No Hepatitis: No HIV/AIDS Exposure: No Rash or Viral Illness: No HPV: No PHYSICAL EXAM General: Normal HEENT: Normal Neurologic: Normal Thyroid: Deferred Heart: Normal Lungs: Normal Breast: Deferred Back: Normal Abdomen: Normal Genitourinary Exam: Normal Extremities: Normal DTRs: Normal Pelvic Type: Adequate Physical Exam Comments: Gravid Vital Signs: Reviewed; Within Normal Limits VAGINAL EXAM Dilatation: 4 Effacement: 90 Station: 0 MEMBRANES Membranes: Intact FETUS A EGA: 40.2 Monitoring: External US FHR Category: Category I Presentation: Vertex Admit Comment: G1 Returned to L_D with cervix now /0. History anxiety Poor dentition w tooth/jaw infection during EFW 8lbs 10oz on 09/19/16 GBS negative See antepartum records PLANS FOR LABOR AND DELIVERY Labor and Delivery: None Pain Management: Epidural Feeding Preference: Both Benefit of Breast Feed Discussed: Yes Circumcision: Yes INFORMED CONSENT Assignment: Kadi Solorzano MD Signature: with User ID: Carlin : with User ID: Carlin : I personally evaluated and examined the patient in conjunction with the MLP and agree with the assessment, treatment plan and disposition.
[2016-09-28] MEDS ORDERED: HYDROCORTISONE 1% CREAM 28.35 GM TP PRN (03:52)
[2016-09-28] MEDS ORDERED: DIPHENHYDRAMINE HCL 25 MG CAPSULE PO PRN (03:53)
[2016-09-28] MEDS ORDERED: HYDROCORTISONE 1% CREAM 28.35 GM ONE (05:13)
[2016-09-28] MEDS: IBUPROFEN 800 MG TABLET PO SCH ×3 (05:21→21:09)
--- NOTE | 2016-09-28 07:01 | L&D Flow Sheet ---
LD Flowsheet Datetime Report Generated by CPN: 09/28/2016 07:00 Datetime: 09/28/2016 01:54 NBP Sys/Skylar/Mean (mmHg): 133 (QS system process) : 75 (QS system process) : 92 (QS system process) Pulse: 114 (QS system process) LaborFlag: Antepartum (QS system process) Datetime: 09/28/2016 00:54 NBP Sys/Skyalr/Mean (mmHg): 131 (QS system process) : 67 (QS system process) : 92 (QS system process) Pulse: 118 (QS system process) LaborFlag: Antepartum (QS system process) Datetime: 09/28/2016 00:50 Pain Scale: 1 (Cami Gutierrez) Pain Presence: Constant (Cami Gutierrez) Pain Type: Burning (Cami Gutierrez) Pain Location: Perineum (Cami Gutierrez) Pain Goal: 0 (Cami Gutierrez) Pain Relief Measures: Comfort Measures (Cami Gutierrez) LaborFlag: Antepartum (QS system process) Datetime: 09/28/2016 00:29 Patient Care Comments: vaginal delivery of baby boy (Cami Gutierrez) Datetime: 09/28/2016 00:25 Pushing: Coached on Pushing; Urge to Push (Cami Gutierrez) Pushing Position: Pushing with Contractions (Cami Gutierrez) Pushing Progress: Descent with Pushing (Cami Gutierrez) Datetime: 09/28/2016 00:24 NBP Sys/Skylar/Mean (mmHg): 131 (QS system process) : 86 (QS system process) : 104 (QS system process) Pulse: 148 (QS system process) Patient Care Comments: Dr Solorzano at the bedside for delivery (Cami Gutierrez) LaborFlag: Antepartum (QS system process) Datetime: 09/28/2016 00:20 Pushing: Coached on Pushing; Urge to Push (Cami Gutierrez) Pushing Position: Pushing with Contractions (Cami Gutierrez) Pushing Progress: Descent with Pushing (Cami Gutierrez) Stage 2 Comments: rn remains at the bedside (Cami Gutierrez) Datetime: 09/28/2016 00:11 Pitocin (milliunit): Pitocin Increased to (milliunits) @ (Annotations: 14) (Cami Gutierrez) Datetime: 09/28/2016 00:10 Pushing: Coached on Pushing; Urge to Push (Cami Gutierrez) Pushing Position: Pushing with Contractions (Cami Gutierrez) Pushing Progress: Descent with Pushing (Cami Gutierrez) Stage 2 Comments: rn remains at the bedside (Cami Gutierrez) Datetime: 09/28/2016 00:00 Pushing: Coached on Pushing; Urge to Push (Cami Gutierrez) Pushing Position: Pushing with Contractions (Cami Gutierrez) Pushing Progress: Descent with Pushing (Cami Gutierrez) Stage 2 Comments: rn remains atr the bedside (Cami Gutierrez) Datetime: 09/27/2016 23:55 NBP Sys/Skylar/Mean (mmHg): 123 (QS system process) : 71 (QS system process) : 91 (QS system process) Pulse: 115 (QS system process) LaborFlag: Antepartum (QS system process) Datetime: 09/27/2016 23:51 Pushing: Coached on Pushing; Urge to Push (Cami Gutierrez) Pushing Position: Pushing with Contractions (Cami Gutierrez) Pushing Progress: Descent with Pushing (Cami Gutierrez) Datetime: 09/27/2016 23:49 Pitocin (milliunit): Pitocin Increased to (milliunits) @ (Annotations: 12) (Cami Gutierrez) Datetime: 09/27/2016 23:46 Patient Care Comments: patient placed in stirrups preparing to start pushing (Cami Gutierrez) Datetime: 09/27/2016 23:45 Respirations: 18 (Cami Gutierrez) Monitor Mode: External; Palpation (Cami Gutierrez) Monitor Interventions for UA: [place] Adjusted (Cami Gutierrez) Frequency (min): 2-3 (Cami Gutierrez) Quality: Moderate to Strong (Cami Gutierrez) Duration (sec): 50-70 (Cami Gutierrez) Resting Tone (Palpate): Relaxed (Cami Gutierrez) Monitor Mode: External US (Cami Gutierrez) Monitor Interventions for FHR: Ultrasound Adjusted (Cami Gutierrez) FHR Baseline Rate : 135 (Camizahraa Gutierrez) FHR Baseline Changes: No Baseline Change (Cami Matt) Variability: Moderate 6-25 bpm (Camizahraa Gutierrez) Accelerations: 10X10 (Camizahraa Gutierrez) Decelerations: None (Camizahraa Gutierrez) Patient Position/Activity: High Fowlers (Cami Matt) LaborFlag: Antepartum (QS system process) Datetime: 09/27/2016 23:44 Communication Comments: Informed DrJose Luis Solorzano of [facility] and will start to push with pt. Provider states she will head into the unit. (Mya Muñiz RN) Datetime: 09/27/2016 23:40 Dilatation (cm): 10.0 (Mya Muñiz RN) Station: 1 (Mya Muñiz RN) Exam by: Homar Gutierrez RN (Mya Muñiz RN) Datetime: 09/27/2016 23:30 Respirations: 18 (Cami Gutierrez) Monitor Mode: External; Palpation (Cami Gutierrez) Monitor Interventions for UA: [place] Adjusted (Cami Gutierrez) Frequency (min): 2-3 (Cami Gutierrez) Quality: Moderate to Strong (Cami Gutierrez) Duration (sec): 50-70 (Cami Gutierrez) Resting Tone (Palpate): Relaxed (Cami Gutierrez) Monitor Mode: External US (Cami Gutierrez) Monitor Interventions for FHR: Ultrasound Adjusted (Cami Gutierrez) FHR Baseline Rate : 135 (Cami Gutierrez) FHR Baseline Changes: No Baseline Change (Cami Gutierrez) Variability: Moderate 6-25 bpm (Cami Gutierrez) Accelerations: 10X10 (Cami Gutierrez) Decelerations: None (Cami Gutierrez) Patient Position/Activity: High Fowlers (Cami Gutierrez) LaborFlag: Antepartum (QS system process) Datetime: 09/27/2016 23:25 NBP Sys/Skylar/Mean (mmHg): 114 (QS system process) : 65 (QS system process) : 84 (QS system process) Pulse: 93 (QS system process) LaborFlag: Antepartum (QS system process) Datetime: 09/27/2016 23:15 Respirations: 18 (Cami Gutierrez) Monitor Mode: External; Palpation (Cami Gutierrez) Monitor Interventions for UA: [place] Adjusted (Cami Gutierrez) Frequency (min): 2-4 (Cami Gutierrez) Quality: Moderate (Cami Gutierrez) Resting Tone (Palpate): Relaxed (Cami Gutierrez) Monitor Mode: External US (Cami Gutierrez) Monitor Interventions for FHR: Ultrasound Adjusted (Cami Gutierrez) FHR Baseline Rate : 135 (Cami Gutierrez) FHR Baseline Changes: No Baseline Change (Cami Gutierrez) Variability: Moderate 6-25 bpm (Cami Gutierrez) Accelerations: 10X10 (Cami Gutierrez) Decelerations: None (Cami Gutierrez) Patient Position/Activity: High Fowlers (Cami Gutierrez) LaborFlag: Antepartum (QS system process) Datetime: 09/27/2016 23:02 Patient Position/Activity: High Fowlers (Cami Gutierrez) Datetime: 09/27/2016 23:00 Respirations: 18 (Cami Gutierrez) Monitor Mode: External; Palpation (Cami Gutierrez) Monitor Interventions for UA: [place] Adjusted (Cami Gutierrez) Frequency (min): 2-4 (Cami Gutierrez) Quality: Moderate (Cami Gutierrez) Duration (sec): 40-60 (Cami Gutierrez) Resting Tone (Palpate): Relaxed (Cami Gutierrez) Monitor Mode: External US (Cami Gutierrez) Monitor Interventions for FHR: Ultrasound Adjusted (Cami Gutierrez) FHR Baseline Rate : 140 (Cami Gutierrez) FHR Baseline Changes: No Baseline Change (Cami Gutierrez) Variability: Moderate 6-25 bpm (Cami Gutierrez) Accelerations: 10X10 (Cami Gutierrez) Decelerations: None (Cami Gutierrez) Pitocin (milliunit): Pitocin Remains (milliunits) @ (Annotations: 10 ) (Cami Gutierrez) Patient Position/Activity: Left Lateral; Peanut Ball (Cami Gutierrez) LaborFlag: Antepartum (QS system process) Datetime: 09/27/2016 22:56 NBP Sys/Skylar/Mean (mmHg): 101 (QS system process) : 55 (QS system process) : 72 (QS system process) Pulse: 91 (QS system process) LaborFlag: Antepartum (QS system process) Datetime: 09/27/2016 22:45 Respirations: 18 (Cami Gutierrez) Monitor Mode: External; Palpation (Cami Gutierrez) Monitor Interventions for UA: [place] Adjusted (Cami Gutierrez) Frequency (min): 2-4 (Cami Gutierrez) Quality: Moderate (Cami Gutierrez) Duration (sec): 40-60 (Cami Gutierrez) Resting Tone (Palpate): Relaxed (Cami Gutierrez) Monitor Mode: External US (Cami Gutierrez) Monitor Interventions for FHR: Ultrasound Adjusted (Cami Gutierrez) FHR Baseline Rate : 130 (Cami Gutierrez) FHR Baseline Changes: No Baseline Change (Cami Gutierrez) Variability: Moderate 6-25 bpm (Cami Gtuierrez) Accelerations: 15X15 (Cami Gutierrez) Decelerations: None (Cami Gutierrez) Patient Position/Activity: Left Lateral; [place] (Cami Gutierrez) LaborFlag: Antepartum (QS system process) Datetime: 09/27/2016 22:37 Patient Position/Activity: Left Lateral; [place] (Cami Gutierrez) Datetime: 09/27/2016 22:35 Dilatation (cm): 8.0 (Cami Gutierrez) Effacement (%): 100 (Cami Gutierrez) Station: 1 (Cami Gutierrez) Exam by: Ever Gutierrez Rn (Cami Gutierrez) Vaginal Exam Comments: patient called out stated shes feeling pressure. Rn at the bedside for eval. (Cami Gutierrez) Pitocin (milliunit): Pitocin Remains (milliunits) @ (Annotations: 10) (Cami Gutierrez) Datetime: 09/27/2016 22:30 Respirations: 18 (Cami Gutierrez) Monitor Mode: External; Palpation (Cami Gutierrez) Monitor Interventions for UA: [place] Adjusted (Cami Gutierrez) Frequency (min): 2-4 (Cami Gutierrez) Quality: Moderate (Cami Gutierrez) Duration (sec): 40-60 (Cami Gutierrez) Resting Tone (Palpate): Relaxed (Cami Gutierrez) Monitor Mode: External US (Cami Gutierrez) Monitor Interventions for FHR: Ultrasound Adjusted (Cami Gutierrez) FHR Baseline Rate : 125 (Cami Gutierrez) FHR Baseline Changes: No Baseline Change (Cami Gutierrez) Variability: Moderate 6-25 bpm (Cami Gutierrez) Accelerations: 10X10 (Cami Gutierrez) Decelerations: None (Cami Gutierrez) Patient Position/Activity: Right Lateral; [place] (Cami Gutierrez) LaborFlag: Antepartum (QS system process) Datetime: 09/27/2016 22:24 NBP Sys/Skylar/Mean (mmHg): 122 (QS system process) : 82 (QS system process) : 97 (QS system process) Pulse: 118 (QS system process) LaborFlag: Antepartum (QS system process) Datetime: 09/27/2016 22:20 Pitocin (milliunit): Pitocin Increased to (milliunits) @ (Annotations: 10 ) (Cami Gutierrez) Datetime: 09/27/2016 22:15 Respirations: 18 (Cami Gutierrez) Monitor Mode: External; Palpation (Cami Gutierrez) Monitor Interventions for UA: [place] Adjusted (Cami Gutierrez) Frequency (min): 2-4 (Cami Gutierrez) Quality: Moderate (Cami Gutierrez) Duration (sec): 40-60 (Cami Gutierrez) Resting Tone (Palpate): Relaxed (Cami Gutierrez) Monitor Mode: External US (Cami Gutierrez) Monitor Interventions for FHR: Ultrasound Adjusted (Cami Gutierrez) FHR Baseline Rate : 125 (Cami Gutierrez) FHR Baseline Changes: No Baseline Change (Cami Gutierrez) Variability: Moderate 6-25 bpm (Cami Gutierrez) Accelerations: 15X15 (Cami Gutierrez) Decelerations: None (Cami Gutierrez) Patient Position/Activity: Right Lateral (Cami Gutierrez) LaborFlag: Antepartum (QS system process) Datetime: 09/27/2016 22:05 Pitocin (milliunit): Pitocin Increased to (milliunits) @ (Annotations: 8) (Cami Gutierrez) Datetime: 09/27/2016 22:00 Respirations: 18 (Cami Gutierrez) Monitor Mode: External; Palpation (Cami Gutierrez) Monitor Interventions for UA: [place] Adjusted (Cami Gutierrez) Frequency (min): 2-4 (Cami Gutierrez) Quality: Moderate (Cami Gutierrez) Duration (sec): 40-60 (Cami Gutierrez) Resting Tone (Palpate): Relaxed (Cami Gutierrez) Monitor Mode: External US (Cami Gutierrez) Monitor Interventions for FHR: Ultrasound Adjusted (Cami Gutierrez) FHR Baseline Rate : 125 (Cami Gutierrez) FHR Baseline Changes: No Baseline Change (Cami Gutierrez) Variability: Moderate 6-25 bpm (Cami Gutierrez) Accelerations: 15X15 (Cami Gutierrez) Decelerations: None (Cami Gutierrez) Patient Position/Activity: Right Lateral (Cami Gutierrez) LaborFlag: Antepartum (QS system process) Datetime: 09/27/2016 21:54 NBP Sys/Sklyar/Mean (mmHg): 108 (QS system process) : 65 (QS system process) : 81 (QS system process) Pulse: 93 (QS system process) LaborFlag: Antepartum (QS system process) Datetime: 09/27/2016 21:45 Respirations: 18 (Cami Gutierrez) Monitor Mode: External; Palpation (Cami Gutierrez) Monitor Interventions for UA: [place] Adjusted (Cami Gutierrez) Frequency (min): 2-4 (Cami Gutierrez) Quality: Moderate (Cami Gutierrez) Duration (sec): 50-70 (Cami Gutierrez) Resting Tone (Palpate): Relaxed (Cami Gutierrez) Monitor Mode: External US (Cami Gutierrez) Monitor Interventions for FHR: Ultrasound Adjusted (Cami Gutierrez) FHR Baseline Rate : 130 (Cami Gutierrez) FHR Baseline Changes: No Baseline Change (Cami Gutierrez) Variability: Moderate 6-25 bpm (Cami Gutierrez) Accelerations: 10X10 (Cami Gutierrez) Decelerations: None (Cami Gutierrez) Patient Position/Activity: Right Lateral (Cami Gutierrez) LaborFlag: Antepartum (QS system process) Datetime: 09/27/2016 21:43 Pitocin (milliunit): Pitocin Increased to (milliunits) @ (Annotations: 6) (Cami Gutierrez) Datetime: 09/27/2016 21:30 Respirations: 18 (Cami Gutierrez) Monitor Mode: External; Palpation (Cami Gutierrez) Monitor Interventions for UA: [place] Adjusted (Cami Gutierrez) Frequency (min): 2-4 (Cami Gutierrez) Quality: Moderate (Cami Gutierrez) Duration (sec): 70-100 (Cami Gutierrez) Resting Tone (Palpate): Relaxed (Cami Gutierrez) Monitor Mode: External US (Cami Gutierrez) Monitor Interventions for FHR: Ultrasound Adjusted (Cami Gtuierrez) FHR Baseline Rate : 130 (Cami Gutierrez) FHR Baseline Changes: No Baseline Change (Cami Gutierrez) Variability: Moderate 6-25 bpm (Cami Gutierrez) Accelerations: 15X15 (Cami Gutierrez) Decelerations: None (Cami Gutierrez) Pitocin (milliunit): Pitocin Remains (milliunits) @ (Annotations: 4) (Cami Gutierrez) Patient Position/Activity: Right Tilt (Cmai Gutierrez) LaborFlag: Antepartum (QS system process) Datetime: 09/27/2016 21:24 NBP Sys/Skylar/Mean (mmHg): 122 (QS system process) : 80 (QS system process) : 91 (QS system process) Pulse: 114 (QS system process) LaborFlag: Antepartum (QS system process) Datetime: 09/27/2016 21:23 NBP Sys/Skylar/Mean (mmHg): 120 (QS system process) : 57 (QS system process) : 80 (QS system process) LaborFlag: Antepartum (QS system process) Datetime: 09/27/2016 21:22 NBP Sys/Skylar/Mean (mmHg): 116 (QS system process) : 66 (QS system process) : 86 (QS system process) Pulse: 108 (QS system process) Dilatation (cm): 7.0 (Cami Gutierrez) Effacement (%): 90 (Cami Gutierrez) Station: 0 (Cami Gutierrez) Exam by: Ever Gutierrez Rn (Cami Gutierrez) LaborFlag: Antepartum (QS system process) Datetime: 09/27/2016 21:20 NBP Sys/Skylar/Mean (mmHg): 113 (QS system process) : 60 (QS system process) : 81 (QS system process) Pulse: 111 (QS system process) I/O Interventions: Kelly Cath Inserted (Misty Cordoba RN) Patient Care Comments: cristine Gutierrez RN (Misty Cordoba RN) LaborFlag: Antepartum (QS system process) Datetime: 09/27/2016 21:19 NBP Sys/Skylar/Mean (mmHg): 117 (QS system process) : 64 (QS system process) : 83 (QS system process) Pulse: 109 (QS system process) LaborFlag: Antepartum (QS system process) Datetime: 09/27/2016 21:18 NBP Sys/Skylar/Mean (mmHg): 117 (QS system process) : 67 (QS system process) : 86 (QS system process) Pulse: 104 (QS system process) LaborFlag: Antepartum (QS system process) Datetime: 09/27/2016 21:17 NBP Sys/Skylar/Mean (mmHg): 112 (QS system process) NBP Sys/Skylar/Mean (mmHg): 114 (QS system process) : 69 (QS system process) : 67 (QS system process) : 84 (QS system process) : 85 (QS system process) Pulse: 115 (QS system process) Pulse: 103 (QS system process) LaborFlag: Antepartum (QS system process) Datetime: 09/27/2016 21:16 NBP Sys/Skylar/Mean (mmHg): 112 (QS system process) : 63 (QS system process) : 81 (QS system process) Pulse: 117 (QS system process) LaborFlag: Antepartum (QS system process) Datetime: 09/27/2016 21:15 FHR Baseline Changes: Unable to Determine (Cami Gutierrez) Pitocin (milliunit): Pitocin Remains (milliunits) @ (Annotations: 4 ) (Cami Gutierrez) Patient Care Comments: patient sitting for epidural (Cami Gutierrez) Epidural Procedure Other: Pump Started (Misty Cordoba RN) Datetime: 09/27/2016 21:14 NBP Sys/Skylar/Mean (mmHg): 120 (QS system process) NBP Sys/Skylar/Mean (mmHg): 125 (QS system process) : 72 (QS system process) : 81 (QS system process) : 89 (QS system process) : 97 (QS system process) Pulse: 105 (QS system process) Pulse: 106 (QS system process) LaborFlag: Antepartum (QS system process) Datetime: 09/27/2016 21:13 NBP Sys/Skylar/Mean (mmHg): 133 (QS system process) : 87 (QS system process) : 105 (QS system process) Pulse: 115 (QS system process) LaborFlag: Antepartum (QS system process) Datetime: 09/27/2016 21:12 NBP Sys/Skylar/Mean (mmHg): 137 (QS system process) : 89 (QS system process) : 106 (QS system process) Pulse: 100 (QS system process) Epidural Procedure: Cath Placed (Misty Beryl, RN) LaborFlag: Antepartum (QS system process) Datetime: 09/27/2016 21:11 NBP Sys/Skylar/Mean (mmHg): 135 (QS system process) : 85 (QS system process) : 106 (QS system process) Pulse: 107 (QS system process) Epidural Procedure: Loading Dose (Misty Beryl, RN) Epidural Procedure: Test Dose (Misty Beryl, RN) LaborFlag: Antepartum (QS system process) Datetime: 09/27/2016 21:10 Comments: maternal sitting for epidural (Cami Gutierrez) Datetime: 09/27/2016 21:06 NBP Sys/Skylar/Mean (mmHg): 134 (QS system process) : 88 (QS system process) : 107 (QS system process) Pulse: 99 (QS system process) LaborFlag: Antepartum (QS system process) Datetime: 09/27/2016 21:05 Comments: maternal sitting for epidural (Cami Gutierrez) Datetime: 09/27/2016 21:00 Respirations: 18 (Cami Gutierrez) Monitor Mode: External; Palpation (Cami Gutierrez) Monitor Interventions for UA: [place] Adjusted (Cami Gutierrez) Frequency (min): 2-4 (Cami Gutierrez) Quality: Moderate (Cami Gutierrez) Duration (sec): 60-80 (Cami Gutierrez) Resting Tone (Palpate): Relaxed (Cami Gutierrez) Monitor Mode: External US (Cami Gutierrez) Monitor Interventions for FHR: Ultrasound Adjusted (Cami Gutierrez) FHR Baseline Rate : 125 (Cami Gutierrez) FHR Baseline Changes: No Baseline Change (Cami Gutierrez) Variability: Moderate 6-25 bpm (Cami Gutierrez) Accelerations: 10X10 (Cami Gutierrez) Decelerations: None (Cami Gutierrez) Pitocin (milliunit): Pitocin Remains (milliunits) @ (Annotations: 4) (Cami Gutierrez) Patient Care Comments: patient sitting for epidural (Cami Gutierrez) LaborFlag: Antepartum (QS system process) Datetime: 09/27/2016 20:59 Procedure Verify: Correct Patient Identity; Correct Side and Site are Marked; Accurate Procedure Consent Form; Agreement on Procedure to be Done; Correct Patient Position; Relevant Images and Results are Properly Labeled and Displayed; Addressed Need to Administer Antibiotics or Fluids for Irrigation; Safety Precautions Based on Patient History or Medication Use (Misty Cordoba RN) Anesthesia Comments: Dr Shawn in room (Misty Beryl, RN) Datetime: 09/27/2016 20:52 NBP Sys/Skylar/Mean (mmHg): 123 (QS system process) : 70 (QS system process) : 91 (QS system process) Pulse: 109 (QS system process) LaborFlag: Antepartum (QS system process) Datetime: 09/27/2016 20:48 Pitocin (milliunit): Pitocin Decreased to (milliunits) @ (Annotations: 4) (Cami Gutierrez) Datetime: 09/27/2016 20:45 Respirations: 18 (Cami Gutierrez) Monitor Mode: External; Palpation (Cami Gutierrez) Monitor Interventions for UA: [place] Adjusted (Cami Gutierrez) Frequency (min): 2-4 (Cami Gutierrez) Quality: Moderate (Cami Gutierrez) Duration (sec): 60-80 (Cami Gutierrez) Resting Tone (Palpate): Relaxed (Cami Gutierrez) Monitor Mode: External US (Cami Gutierrez) Monitor Interventions for FHR: Ultrasound Adjusted (Cami Gutierrez) FHR Baseline Rate : 130 (Cami Gutierrez) FHR Baseline Changes: No Baseline Change (Cami Gutierrez) Variability: Moderate 6-25 bpm (Cami Gutierrez) Accelerations: 10X10 (Cami Gutierrez) Decelerations: None (Cami Gutierrez) Patient Position/Activity: Right Lateral (Cami Gutierrez) LaborFlag: Antepartum (QS system process) Datetime: 09/27/2016 20:30 Respirations: 18 (Cami Gutierrez) Monitor Mode: External; Palpation (Cami Gutierrez) Monitor Interventions for UA: [place] Adjusted (Cami Gutierrez) Frequency (min): 2-4 (Cami Gutierrez) Quality: Moderate (Cami Gutierrez) Duration (sec): 60-80 (Cami Gutierrez) Resting Tone (Palpate): Relaxed (Cami Gutierrez) Monitor Mode: External US (Cami Gutierrez) Monitor Interventions for FHR: Ultrasound Adjusted (Cami Gutierrez) FHR Baseline Rate : 130 (Cami Gutierrez) FHR Baseline Changes: No Baseline Change (Cami Gutierrez) Variability: Moderate 6-25 bpm (Cami Gutierrez) Accelerations: 15X15 (Cami Gutierrez) Decelerations: None (Cami Gutierrez) Patient Position/Activity: Right Lateral (Cami Gutierrez) Procedure Type: epidural (Cami Gutierrez) Procedure Verify: Correct Patient Identity; Correct Side and Site are Marked; Accurate Procedure Consent Form; Agreement on Procedure to be Done; Correct Patient Position; Relevant Images and Results are Properly Labeled and Displayed; Safety Precautions Based on Patient History or Medication Use (Cami Gutierrez) LaborFlag: Antepartum (QS system process) Datetime: 09/27/2016 20:21 NBP Sys/Skylar/Mean (mmHg): 99 (QS system process) : 63 (QS system process) : 75 (QS system process) Pulse: 91 (QS system process) LaborFlag: Antepartum (QS system process) Datetime: 09/27/2016 20:15 Respirations: 18 (Cami Gutierrez) Monitor Mode: External; Palpation (Cami Gutierrez) Monitor Interventions for UA: [place] Adjusted (Cami Gutierrez) Frequency (min): 2-4 (Cami Gutierrez) Quality: Mild/Moderate (Cami Gutierrez) Duration (sec): 60-80 (Cami Gutierrez) Resting Tone (Palpate): Relaxed (Cami Gutierrez) Monitor Mode: External US (Cami Gutierrez) Monitor Interventions for FHR: Ultrasound Adjusted (Cami Gutierrez) FHR Baseline Rate : 125 (Cami Gutierrez) FHR Baseline Changes: No Baseline Change (Cami Gutierrez) Variability: Moderate 6-25 bpm (Cami Gutierrez) Accelerations: 15X15 (Cami Gutierrez) Decelerations: Variable (Cami Gutierrez) Dilatation (cm): 6.0 (Cami Gutierrez) Effacement (%): 90 (Cami Gutierrez) Station: 0 (Cami Gutierrez) Exam by: Ever Gutierrez Rn (Cami Gutierrez) Pitocin (milliunit): Pitocin Remains (milliunits) @ (Annotations: 6 ) (Cami Gutierrez) Patient Position/Activity: Left Lateral (Cami Gutierrez) LaborFlag: Antepartum (QS system process) Datetime: 09/27/2016 20:10 Comments: rn at the bedside for eval (Cami Gutierrez) Patient Position/Activity: Left Lateral (Cami Gutierrez) Datetime: 09/27/2016 20:00 Respirations: 18 (Cami Gutierrez) Monitor Mode: External; Palpation (Cami Gutierrez) Monitor Interventions for UA: [place] Adjusted (Cami Gutierrez) Frequency (min): 4-6 (Cami Gutierrez) Quality: Mild/Moderate (Cami Gutierrez) Duration (sec): 70-90 (Cami Gutierrez) Resting Tone (Palpate): Relaxed (Cami Gutierrez) Monitor Mode: External US (Cami Gutierrez) Monitor Interventions for FHR: Ultrasound Adjusted (Cami Gutierrez) FHR Baseline Rate : 130 (Cami Gutierrez) FHR Baseline Changes: No Baseline Change (Cami Gutierrez) Variability: Moderate 6-25 bpm (Cami Gutierrez) Accelerations: 15X15 (Cami Gutierrez) Decelerations: None (Cami Gutierrez) Pitocin (milliunit): Pitocin Increased to (milliunits) @ (Annotations: 6) (Cami Gutierrez) Patient Position/Activity: Right Lateral (Cami Gutierrez) Procedure Type: epidural (Cami Gutierrez) Procedure Verify: Correct Patient Identity; Correct Side and Site are Marked; Accurate Procedure Consent Form; Agreement on Procedure to be Done; Correct Patient Position; Relevant Images and Results are Properly Labeled and Displayed; Safety Precautions Based on Patient History or Medication Use (Cami Gutierrez) LaborFlag: Antepartum (QS system process) Datetime: 09/27/2016 19:51 NBP Sys/Skylar/Mean (mmHg): 123 (QS system process) : 83 (QS system process) : 98 (QS system process) Pulse: 105 (QS system process) LaborFlag: Antepartum (QS system process) Datetime: 09/27/2016 19:45 Respirations: 18 (Cami Gutierrez) Monitor Mode: External; Palpation (Cami Gutierrez) Monitor Interventions for UA: [place] Adjusted (Cami Gutierrez) Frequency (min): 4-6 (Cami Gutierrez) Quality: Mild/Moderate (Cami Gutierrez) Duration (sec): 70-90 (Cami Gutierrez) Resting Tone (Palpate): Relaxed (Cami Gutierrez) Monitor Mode: External US (Cami Gutierrez) Monitor Interventions for FHR: Ultrasound Adjusted (Cami Gutierrez) FHR Baseline Rate : 125 (Cami Gutierrez) FHR Baseline Changes: No Baseline Change (Cami Gutierrez) Variability: Moderate 6-25 bpm (Cami Gutierrez) Accelerations: 15X15 (Cami Gutierrez) Decelerations: None (Cami Gutierrez) Pitocin (milliunit): Pitocin Increased to (milliunits) @ (Annotations: 4) (Cami Gutierrez) Patient Position/Activity: Right Lateral (Cami Gutierrez) LaborFlag: Antepartum (QS system process) Datetime: 09/27/2016 19:30 Respirations: 18 (Cami Gutierrez) Monitor Mode: External; Palpation (Cami Gutierrez) Monitor Interventions for UA: [place] Adjusted (Cami Gutierrez) Frequency (min): 4-6 (Cami Gutierrez) Quality: Mild/Moderate (Cami Gutierrez) Duration (sec): 80-110 (Cami Gutierrez) Resting Tone (Palpate): Relaxed (Cami Gutierrez) Monitor Mode: External US (Cami Gutierrez) Monitor Interventions for FHR: Ultrasound Adjusted (Cami Gutierrez) FHR Baseline Rate : 125 (Cami Gutierrez) FHR Baseline Changes: No Baseline Change (Cami Gutierrez) Variability: Moderate 6-25 bpm (Cami Gutierrez) Accelerations: 15X15 (Cami Gutierrez) Decelerations: None (Cami Gutierrez) Patient Position/Activity: Right Lateral (Cami Gutierrez) LaborFlag: Antepartum (QS system process) Datetime: 09/27/2016 19:21 NBP Sys/Skylar/Mean (mmHg): 112 (QS system process) : 77 (QS system process) : 90 (QS system process) Pulse: 92 (QS system process) LaborFlag: Antepartum (QS system process) Datetime: 09/27/2016 19:20 Respirations: 18 (Cami Gutierrez) Temperature (F): 98.1 (Cami Gutierrez) Temperature (C): 36.7 (QS system process) Temperature Route: Oral (Cami Gutierrez) Pain Scale: 2 (Cami Gutierrez) Pain Presence: Intermittent (Cami Gutierrez) Pain Type: Cramping (Cami Gutierrez) Pain Location: Abdomen; Back (Cami Gutierrez) Pain Goal: 0 (Cami Gutierrez) Pain Relief Measures: Comfort Measures (Cami Gutierrez) Level of Consciousness: Fully Conscious (Cami Gutierrez) DTR's/Clonus: DTRs 2+; No Clonus (Cami Gutierrez) Headache: Denies (Cami Gutierrez) Breath Sounds, Left: Clear and Equal (Cami Gutierrez) Breath Sounds, Right: Clear and Equal (Cami Gutierrez) Nausea/Vomiting: Denies (Cami Gutierrez) RUQ Epigastric Pain: Denies (Cami Gutierrez) IV/Blood Work: IV Infusing per Order (Annotations: LR 125ml/hr) (Camizahraa Gutierrez) LaborFlag: Antepartum (QS system process) Datetime: 09/27/2016 19:15 Respirations: 18 (Cami Gutierrez) Monitor Mode: External; Palpation (Cami Gutierrez) Monitor Interventions for UA: [place] Adjusted (Cami Gutierrez) Frequency (min): 4-6 (Cami Gutierrez) Quality: Mild/Moderate (Cami Gutierrez) Duration (sec): 70-90 (Cami Gutierrez) Resting Tone (Palpate): Relaxed (Cami Gutierrez) Monitor Mode: External US (Cami Gutierrez) Monitor Interventions for FHR: Ultrasound Adjusted (Cami Gutierrez) FHR Baseline Rate : 130 (Cami Gutierrez) Variability: Moderate 6-25 bpm (Cami Gutierrez) Accelerations: 15X15 (Cami Gutierrez) Decelerations: None (Cami Gutierrez) Pitocin (milliunit): Pitocin Started (milliunits) @ (Annotations: 2) (Cami Gutierrez) Patient Position/Activity: Left Tilt; High Fowlers (Cami Gutierrez) LaborFlag: Antepartum (QS system process) Datetime: 09/27/2016 19:00 Monitor Mode: External (Divina Mccullough RN) Frequency (min): 6-10 (Divina Mccullough RN) Quality: Mild/Moderate (Divina Mccullough RN) Duration (sec): 60-100 (Divina Mccullough RN) Duration Criteria: Less than Two 120 Second Contractions (Divina Mccullough RN) Resting Tone (Palpate): Relaxed (Divina Mccullough RN) Monitor Mode: External US (Divina Mccullough RN) FHR Baseline Rate : 130 (Divina Mccullough RN) FHR Baseline Changes: No Baseline Change (Divina Mccullough RN) Variability: Moderate 6-25 bpm (Divina Mccullough RN) Decelerations: None (Divina Mccullough RN)
--- NOTE | 2016-09-28 07:40 | Delivery Summary ---
Del Sum A-C Datetime Report Generated by CPN: 09/28/2016 07:39 ADMISSION DATA Chief Complaint: Uterine Contractions Indication for Induction: Not Applicable Admission Impression: Term, Intrauterine ; Active Labor Admission Impression Comments: 4 cm on return to L_D Admit Provider Comments: G1 Returned to L_D with cervix now 490/0. History anxiety Poor dentition w tooth/jaw infection during EFW 8lbs 10oz on 09/19/16 GBS negative See antepartum records DELIVERY PERSONNEL Delivery Doctor:: Kadi Solorzano MD Labor and Delivery Nurse:: Cami Gutierrez RNharvest supervisor Nurse:: Misty Cordoba RN Nursery Nurse:: Lorena Rendon RN Pigment Grinder/DIRECTOR OF CURRICULUM AND INSTRUCTION: Shantell Coleman, ST MATERNAL INFORMATION Delivery Anesthesia: Epidural Medications After Delivery: Pitocin Drip 20 Units/1000ml NSS Estimated Blood Loss (ml): 300 Maternal Complications: None Provider Comments: over intact perineal lac/periurethral lac w repair. live male ap 03/25. spontaneous intact placenta 3vc. loose nuchal times one easily reduced. peds present for meconium. LABOR SUMMARY EDC: 09/25/2016 00:00 No. Babies in Womb: 1 Attempted: No Labor Anesthesia: Epidural LABOR INFORMATION Reason for Induction: Not Applicable Onset of Labor: 09/27/2016 20:15 Complete Dilatation: 09/27/2016 23:40 Oxytocin: Augmentation Group B Beta Strep: NEGATIVE Antibiotics # of Doses: 0 Steroids Given: None Reason Steroids Not Administered: Not Applicable MEMBRANES Membranes Rupture Method: Spontaneous Rupture of Membranes: 09/27/2016 15:30 Length of Rupture (hr): 8.98 Amniotic Fluid Color: Clear Amniotic Fluid Amount: Small Amniotic Fluid Odor: Normal STAGES OF LABOR Stage 1 hr: 3 Stage 1 min: 25 Stage 2 hr: 0 Stage 2 min: 49 Stage 3 hr: 0 Stage 3 min: 4 Total Time in Labor hr: 4 Total Time in Labor min: 18 VAGINAL DELIVERY Episiotomy: None Laceration Extension: Second Degree Laceration Type: Perineal; Periurethral Laceration Repair: Yes Laceration Repair Note: repair right periurethral lac with 3-0 vicryl in running fashion. repair small perineal lac 2nd deg in usual fashion Sponge Count Correct: N/A CSECTION DELIVERY Primary Indication: N/A Secondary Indication: N/A CSection Incidence: N/A Labor: N/A Elective: N/A CSection Incision: N/A BABY A INFORMATION Infant Delivery Date/Time: 09/28/2016 00:29 Method of Delivery: Vaginal Born in Route : No : N/A Forceps: N/A Vacuum Extraction: N/A Shoulder Dystocia : No PRESENTATION/POSITION BABY A Presentation: Cephalic Cephalic Presentation: Vertex Breech Presentation: N/A PLACENTA INFORMATION BABY A Placenta Delivery Time : 09/28/2016 00:33 Placenta Method of Delivery: Spontaneous Placenta Status: Delivered SCORES BABY A Heart Rate 1 min: >100 bpm Resp Effort 1 min: Good Cry Reflex Irritability 1 min: Cough or Sneeze or Pulls Away Muscle Tone 1 min: Active Motion Color 1 min: Body [place], Extremities Blue Resuscitation Effort 1 min: Tactile Stimulation SCORE 1 MIN: 9 Heart Rate 5 min: >100 bpm Resp Effort 5 min: Good Cry Reflex Irritability 5 min: Cough or Sneeze or Pulls Away Muscle Tone 5 min: Active Motion Color 5 min: Body [place], Extremities Blue Resuscitation Effort 5 min: Tactile Stimulation SCORE 5 MIN: 9 INFORMATION BABY A Gestational Age at Delivery: 40.3 Gestational Status: Full Term- 39- 40.6 Weeks Outcome : Liveborn Infant Condition : Stable Infant Sex: Male IDENTIFICATION BABY A Infant Verification Date/Time: 09/28/2016 00:35 ID Band Number: [id number] Mother's Name Verified: Yes Infant RN Verifying Infant: Ole Cordoba, [place] Additional Verifying Personnel: [facility], [place] WEIGHT/LENGTH BABY A Birthweight (gm): 3385 Weight (lb): 7 Infant Weight (oz): 7 Infant Length (in): 20.00 Infant Length (cm): 50.80 CORD INFORMATION BABY A No. Cord Vessels: 3 Nuchal Cord : Around Neck x1, Loose Cord Blood Taken: Yes-For Storage (Mom's Blood type +) Suction: Mouth; Nose ASSESSMENT BABY A Infant Complications: Meconium Infant Respirations: Appears Normal Skin to Skin: Yes Skin to Skin Time (min): 30 Craft Superintendent/ALS Called : No Infant Care By: Homar Rendon RN Transferred To: Remains with Mother BABY B INFORMATION : N/A SIGNATURES Signature: with User ID: [email or web address] : I personally evaluated and examined the patient in conjunction with the MLP and agree with the assessment, treatment plan and disposition.
--- NOTE | 2016-09-28 10:00 | PDOC PROGRESS REPORT ---
Subjective-OB Subjective: Post Delivery Day: 1 21 year old. Denies any needs at this time, states lochia is stable, pain well controlled, voiding without difficulty. Physical Exam (OB) Vital Signs: Temp Pulse Resp BP Pulse Ox 98.3 F 100 18 121/66 99 09/28/16 02:46 09/28/16 02:46 09/28/16 02:46 09/28/16 02:46 09/28/16 02:46 Intake & Output 09/27/16 09/28/16 09/29/16 06:59 06:59 06:59 Weight 83.915 kg - Lochia Lochia Amount: Small 10-25 ml Lochia Color: Rubra/Red - Abdomen Description: Soft Hernia Present: No Fundal Description: Firm, Midline Fundal Height: u/u - u/2 Objective-Diagnostic Laboratory: 09/27/16 17:55 09/27/16 09/27/16 17:55 17:55 WBC 13.9 H RBC 3.99 Hgb 10.9 L Hct 33.4 L MCV 84 MCH 27.4 MCHC 32.7 RDW 14.7 H Plt Count 242 Seg Neutrophils % 78.7 H Lymphocytes % 14.4 Monocytes % 6.0 Eosinophils % 0.6 Basophils % 0.3 Absolute Neutrophils 11.0 H Absolute Lymphocytes 2.0 Absolute Monocytes 0.8 Absolute Eosinophils 0.1 Absolute Basophils 0.0 Blood Type A POSITIVE Antibody Screen NEGATIVE Assessment and Plan(PN) - Assessment and Plan (1) Vaginal delivery Is this a current diagnosis for this admission?: YesPlan: routine care - Time Spent with Patient Time with patient: Less than 15 minutes Critical Time spent with patient: Less than 15 minutes Medications reviewed and adjusted accordingly: Yes - Disposition Anticipated Discharge: Home Within: within 24 hours
[2016-09-28] MEDS: PRENATAL VITAMIN W-O CA NO5/FE FUMARATE/FA CAPSULE PO SCH (11:20)
[2016-09-28] MEDS: DOCUSATE SODIUM 100 MG CAPSULE PO SCH ×2 (11:21→17:27)
[2016-09-28] MEDS: SENNOSIDES/DOCUSATE 8.6-50 MG 1 EACH TABLET PO SCH (11:21)
[2016-09-28] MEDS: FERROUS SULFATE 325 MG TABLET PO SCH ×2 (11:21→17:27)
--- NOTE | 2016-09-28 18:00 | L&D General Admission ---
General Admit Datetime Report Generated by CPN: 09/28/2016 18:00 INFORMATION Patient Age: 21 (09/26/2016 10:01:QS system process) EDC: 09/25/2016 00:00 (09/26/2016 10:13:Jerome Driscoll RN) LMP: 12/20/2015 00:00 (09/26/2016 10:13:Jerome Driscoll RN) : 1 (09/26/2016 10:13:Jerome Driscoll RN) Para: 0 (09/26/2016 10:13:Jerome Driscoll RN) Term: 0 (09/26/2016 10:13:Shanda Guzman RN) : 0 (09/26/2016 10:13:Shanda Guzman RN) Spontaneous Abortions: 0 (09/26/2016 10:13:Shanda Guzman RN) Induced Abortions: 0 (09/26/2016 10:13:Shanda Guzman RN) Livin (09/26/2016 10:13:Shanda Guzman RN) Cesareans: 0 (09/26/2016 10:13:Shanda Guzman RN) VBACs: 0 (09/26/2016 10:13:Shanda Guzman RN) Ectopic: 0 (09/26/2016 10:13:Shanda Guzman RN) Multiple Births: 0 (09/26/2016 10:13:Shanda Guzman RN) Baby, Number in Womb: 1 (09/26/2016 10:13:Betzy Patricio RN) CARE Primary Computer Compositor: [facility] (09/26/2016 10:13:Jerome Driscoll RN) Computer Compositor Other: [facility] (09/26/2016 10:13:Jerome Driscoll RN) Month of 1st Visit: February (09/26/2016 10:13:Divina Mccullough RN) Adequate Care: Yes (09/26/2016 10:13:Jerome Driscoll RN) Prepregnancy Weight (lb): 142 (09/26/2016 10:13:Jerome Driscoll RN) Prepregnancy Weight (kg): 64.5 (09/26/2016 10:13:QS system process) Height (in): 64 (09/28/2016 09:16:QS system process) ALLERGIES Medication Allergy: No (09/26/2016 10:13:Jerome Driscoll RN) Medication Allergies: No Known Allergies (09/27/2016) (09/27/2016 09:56:QS system process) Latex Allergy: No Latex Allergies (09/26/2016 10:13:Jerome Driscoll RN) Food Allergies: NONE (09/26/2016 10:13:Divina Mccullough RN) Environmental Allergies: NONE (09/26/2016 10:13:Divina Mccullough RN) COMMUNICATION Primary Language: British (09/26/2016 10:13:Jerome Driscoll RN) Medical Tx Preferred Language: British (09/26/2016 10:13:Shanda Guzman RN) British Communication Ability: Speaks British; Reads British (09/26/2016 10:13:Divina Mccullough RN) Communication Barrier(s): None (09/26/2016 10:13:Jerome Driscoll RN) DEMOGRAPHICS Address: [address] [place] [id number] (09/26/2016 10:01:QS system process) Zipcode: [address] (09/26/2016 10:01:QS system process) Home (09/26/2016 10:01:QS system process) SSN: [id number] (09/26/2016 10:01:QS system process) Next of Kin Name: NATAIL CHERRY (09/26/2016 10:01:QS system process) Next of Kin (09/26/2016 10:01:QS system process) Next of Kin Relationship: [place] (09/26/2016 10:01:QS system process) Date of : 1995 (09/26/2016 10:01:QS system process) Marital Status: Single (09/26/2016 10:01:QS system process) Sex: Female (09/26/2016 10:01:QS system process) Occupation: None (09/26/2016 10:13:Jerome Driscoll RN) Race: (09/26/2016 10:01:QS system process) Ethnicity: Non- or (09/26/2016 10:01:QS system process) Congregational: Taoism (09/26/2016 10:01:QS system process) Education: 12 (09/26/2016 10:13:Jerome Driscoll RN) FOB Involved: Yes (09/26/2016 10:13:Jerome Driscoll RN) Father of Baby Name: Tay Ashley (09/26/2016 10:13:Jerome Driscoll RN) Person Auth to release pt PHI: Natali Cherry (09/26/2016 10:13:Jerome Driscoll RN) DRUG AND ALCOHOL USE Alcohol: No (09/26/2016 10:13:Jerome Driscoll RN) Cigarettes: Never Smoker. [id number] (09/26/2016 10:13:Jerome Driscoll RN) Marijuana: No (09/26/2016 10:13:Jerome Driscoll RN) Cocaine: No (09/26/2016 10:13:Jerome Driscoll RN) Other Illicit Drugs: No (09/26/2016 10:13:Jerome Driscoll RN) VACCINE HISTORY Influenza Vaccine: Yes (09/26/2016 10:13:Jerome Driscoll RN) Influenza Date: 07/06/16 (09/26/2016 10:13:Jerome Driscoll RN) Pneumococcal Vaccine: Uncertain (09/26/2016 10:13:Jerome Driscoll RN) Tetanus Vaccine: Yes (09/26/2016 10:13:Shanda Guzman RN) Tetanus Date: 06-16-16 (09/26/2016 10:13:Divina Mccullough RN) Tdap Vaccine: Yes (09/26/2016 10:13:Jerome Driscoll RN) Tdap Date: 07/06/16 (09/26/2016 10:13:Jerome Driscoll RN) Hepatitis B Vaccine: Yes (09/26/2016 10:13:Jreome Driscoll RN) Immunopathologist: [employer] (09/26/2016 10:13:Jerome Driscoll RN) Feeding Preference: Both (09/26/2016 10:13:Jerome Driscoll RN) Benefit of Breast Feed Discussed: Yes (09/26/2016 10:13:Jerome Driscoll RN) Circumcision: Yes (09/26/2016 10:13:Jerome Driscoll RN) Classes Attended: No (09/26/2016 10:13:Jerome Driscoll RN) Tubal Ligation: No (09/26/2016 10:13:Jerome Driscoll RN) Tubal Authorization Signed: N/A (09/26/2016 10:13:Jerome Driscoll RN) Consent: N/A (09/26/2016 10:13:Jerome Driscoll RN) Consent Signed: N/A (09/26/2016 10:13:Jerome Driscoll RN) Pain Management Plans: Epidural (09/26/2016 10:13:Jerome Driscoll RN) Plans for Labor and Delivery: None (09/26/2016 10:13:Jerome Driscoll RN) Support Person: Tay Ashley (09/26/2016 10:13:Jerome Driscoll RN) Support Person Relationship: Significant Other (09/26/2016 10:13:Jerome Driscoll RN) Cultural/Spritual Practice: No (09/26/2016 10:13:Jerome Driscoll RN) Spir/Cult Dietary Needs: No (09/26/2016 10:13:Jerome Driscoll RN) LIVING SITUATION/DISCHARGE PLAN Living Arrangements: Apartment (09/26/2016 10:13:Jerome Driscoll RN) Adequate Access to:: Electric; Heat; Refrigeration; Plumbing/Running water; Phone; Transportation (09/26/2016 10:13:Jerome Driscoll RN) WIC Program: Yes (09/26/2016 10:13:Jerome Driscoll RN) Discharge Rubber Thread Spooler Person: Tay Ashley (09/26/2016 10:13:Jerome Driscoll RN) Person to Help after Discharge: Tay Ashley (09/26/2016 10:13:Jerome Driscoll RN) Currently Using Commun Resources: Yes (09/26/2016 10:13:Jerome Driscoll RN) Specify Current Resource Used: Medicaid (09/26/2016 10:13:Jerome Driscoll RN) Outside Agency/Fabric Worker Foreman: Yes (09/26/2016 10:13:Jerome Driscoll RN) Car Seat for Discharge: Yes (09/26/2016 10:13:Jerome Driscoll RN) Adoption Requested: No (09/26/2016 10:13:Jerome Driscoll RN) Pt Contact w/infant Post : N/A (09/26/2016 10:13:Jerome Driscoll RN) LABS Blood Type: A Positive (09/26/2016 10:13:Jolene Holloway RN) Hemoglobin: 10.9 L (09/27/2016 17:55:QS system process) Hematocrit: 33.4 L (09/27/2016 17:55:QS system process) MCV: 84 (09/27/2016 17:55:QS system process) Group Beta Strep: NEGATIVE (09/26/2016 10:13:Jerome Driscoll RN) Gonorrhea: Negative (09/26/2016 10:13:Jerome Driscoll RN) Chlamydia: Negative (09/26/2016 10:13:Jerome Driscoll RN) HIV Results: NEGATIVE (09/27/2016 18:34:QS system process) Rubella: POSITIVE NEGATIVE IF LESS THAN OR EQUAL TO 9.99 IU/mL POSITIVE IF GREATER THAN OR EQUAL TO 10.0 IU/mL (09/27/2016 18:34:QS system process) Rubella Titer: 38.00 (09/27/2016 18:34:QS system process) OB/PREVIOUS HISTORY LMP: 12/20/2015 00:00 (09/26/2016 10:13:Jerome Driscoll RN) Previous Procedures: None (09/26/2016 10:13:Jerome Driscoll RN) Current Procedures: Ultrasound (09/26/2016 10:13:Jerome Driscoll RN) History of Previous : No (09/26/2016 10:13:Jerome Driscoll RN) History of Gestational Diabetes: No (09/26/2016 10:13:Jerome Driscoll RN) History of PIH: No (09/26/2016 10:13:Jerome Driscoll RN) History of Incompetent Cervix: No (09/26/2016 10:13:Jerome Driscoll RN) History of Placenta Previa/Abrup: No (09/26/2016 10:13:Jerome Driscoll RN) History of Macrosomia: No (09/26/2016 10:13:Jerome Driscoll RN) History of IUGR: No (09/26/2016 10:13:Jerome Driscoll RN) History of Hemorrhage: No (09/26/2016 10:13:Jerome Driscoll RN) History of Loss/Stillborn: No (09/26/2016 10:13:Jerome Driscoll RN) History of : No (09/26/2016 10:13:Jerome Driscoll RN) History of D (Rh) Sensitization: No (09/26/2016 10:13:Jerome Driscoll RN) History Recurrent Loss/Stillborn: No (09/26/2016 10:13:Jerome Driscoll RN) History Depression/PP Depression: No (09/26/2016 10:13:Jerome Driscoll RN) History of Uterine Anomaly/HAL: No (09/26/2016 10:13:Jerome Driscoll RN) History of Infertility: No (09/26/2016 10:13:Jerome Driscoll RN) History of ART Treatment: No (09/26/2016 10:13:Jerome Driscoll RN) History of HAL: No (09/26/2016 10:13:Jerome Driscoll RN) Comments Obstetrical History: G1 Current (09/26/2016 10:13:Jerome Driscoll RN) MEDICAL HISTORY Med Hx Diabetes: No (09/26/2016 10:13:Jerome Driscoll RN) Med Hx Hypertension: No (09/26/2016 10:13:Jerome Driscoll RN) Med Hx Heart Disease: No (09/26/2016 10:13:Jerome Driscoll RN) Med Hx Autoimmune Disorder: No (09/26/2016 10:13:Jerome Driscoll RN) Med Hx Kidney Disease/UTI: No (09/26/2016 10:13:Jerome Driscoll RN) Med Hx Neurologic/Epilepsy: No (09/26/2016 10:13:Jerome Driscoll RN) Med Hx Psychiatric Disorders: Yes (09/26/2016 10:13:Jerome Driscoll RN) Med Hx Hepatitis/Liver Disease: No (09/26/2016 10:13:Jerome Driscoll RN) Med Hx Varicosities/Phlebitis: No (09/26/2016 10:13:Jerome Driscoll RN) Med Hx Thyroid Dysfunction: No (09/26/2016 10:13:Jerome Driscoll RN) Med Hx Trauma/Violence: No (09/26/2016 10:13:Jerome Driscoll RN) Med Hx Blood Transfusion: No (09/26/2016 10:13:Jerome Driscoll RN) Med Hx Pulmonary (Asthma,TB): No (09/26/2016 10:13:Jerome Driscoll RN) Med Hx Breast: No (09/26/2016 10:13:Jerome Driscoll RN) Med Hx SPECIAL PROJECTS MANAGER Surgery: No (09/26/2016 10:13:Jerome Driscoll RN) Med Hx Hospitalization/Surgery: No (09/26/2016 10:13:Jerome Driscoll RN) Med Hx Anesthetic Complications: No (09/26/2016 10:13:Jerome Driscoll RN) Med Hx Abnormal Pap Smear: No (09/26/2016 10:13:Jerome Driscoll RN) Other Medical Diseases: No (09/26/2016 10:13:Jerome Driscoll RN) Med Hx Significant Family Hx: No (09/26/2016 10:13:Jerome Driscoll RN) Details of Med/Surg Hx: Anxiety; Hx Pancreatitis and elevated lipase; Anemia; Vertigo (09/26/2016 10:13:Jerome Driscoll RN) INFECTIOUS HISTORY Inf Hx Gonorrhea: No (09/26/2016 10:13:Jerome Driscoll RN) Inf Hx Chlamydia: No (09/26/2016 10:13:Jerome Driscoll RN) Inf Hx Syphilis: No (09/26/2016 10:13:Jerome Driscoll RN) Inf Hx HIV/AIDS: No (09/26/2016 10:13:Jerome Driscoll RN) Inf Hx Human Papilloma Virus: No (09/26/2016 10:13:Jerome Driscoll RN) Inf Hx Pt/Partner Genital Herpes: No (09/26/2016 10:13:Jerome Driscoll RN) Inf Hx Tuberculosis/Exposure: No (09/26/2016 10:13:Jerome Driscoll RN) Inf Hx Hepatitis B,C: No (09/26/2016 10:13:Jerome Driscoll RN) Inf Hx Rash or Viral Illness: No (09/26/2016 10:13:Jerome Driscoll RN) GENETIC HISTORY Gen Hx Age >=35 at RASHEL: No (09/26/2016 10:13:Jerome Driscoll RN) Gen Hx Thalassemia: No (09/26/2016 10:13:Jerome Driscoll RN) Gen Hx Congenital Heart Defect: No (09/26/2016 10:13:Jerome Driscoll RN) Gen Hx Neural Tube Defect: No (09/26/2016 10:13:Jerome Driscoll RN) Gen Hx Down's Syndrome: No (09/26/2016 10:13:Jerome Driscoll RN) Gen Hx Aldair-Sachs: No (09/26/2016 10:13:Jerome Driscoll RN) Gen Hx Sun: No (09/26/2016 10:13:Jerome Driscoll RN) Gen Hx Familial Dysautonomia: No (09/26/2016 10:13:Jerome Driscoll RN) Gen Hx Sickle Cell Disease/Trait: No (09/26/2016 10:13:Jerome Driscoll RN) Gen Hx Hemophilia/Blood Disorder: No (09/26/2016 10:13:Jerome Driscoll RN) Gen Hx Muscular Dystrophy: No (09/26/2016 10:13:Jerome Driscoll RN) Gen Hx Cystic Fibrosis: No (09/26/2016 10:13:Jerome Driscoll RN) Gen Hx Huntingtons Chorea: No (09/26/2016 10:13:Jerome Driscoll RN) Gen Hx Mental Retardation/Autism: No (09/26/2016 10:13:Jerome Driscoll RN) Gen Hx Tested for Fragile X: No (09/26/2016 10:13:Jerome Driscoll RN) Gen Hx Other Inher/Chromosomal: No (09/26/2016 10:13:Jerome Driscoll RN) Gen Hx Maternal Metabolic DO: No (09/26/2016 10:13:Jerome Driscoll RN) Gen Hx Pt Father or FOB Defect: No (09/26/2016 10:13:Jerome Driscoll RN) Gen Hx Other Genetic History: No (09/26/2016 10:13:Jerome Driscoll RN) Gen Hx Drugs/Meds since LMP: No (09/26/2016 10:13:Jerome Driscoll RN) Gen Hx Medications: Tylenol Benadryl PNV Iron Vitamin C (09/26/2016 10:13:Jerome Driscoll RN)
--- NOTE | 2016-09-28 18:00 | L&D Current Admission ---
Current Admit Datetime Report Generated by CPN: 09/28/2016 18:00 ADMISSION INFORMATION Current Admit Date/Time: 09/27/2016 17:30 (09/27/2016 17:40:Divina Mccullough RN) Reason for Admission: Onset of Labor (09/27/2016 17:40:Divina Mccullough RN) Chief Complaint: Contractions (09/27/2016 18:36:Divina Mccullough RN) EGA per Dates: 40.2 (09/27/2016 17:40:QS system process) Method of Arrival: Wheelchair (09/27/2016 17:40:Divina Mccullough RN) Reason for Induction: Not Applicable (09/27/2016 17:40:Divina Mccullough RN) Records Available: Yes (09/27/2016 17:40:Divina Mccullough RN) General Admission Information: Reviewed; Updated; Confirmed (09/27/2016 17:40:Divina Mccullough RN) General Admission Reviewed By: Jia Mccullough RN (09/27/2016 17:40:Divina Mccullough RN) BELONGINGS/ADVANCED DIRECTIVES Other Belongings: See [facility] Valuables consent (09/27/2016 17:40:Divina Mccullough RN) Disposition of Belongings: Kept with Patient (09/27/2016 17:40:Divina Mccullough RN) Advance Direct for Healthcare: No, and Wants No Information (09/27/2016 17:40:Divina Mccullough RN) Durable Power of Catering Operations Manager: No (09/27/2016 17:40:Divina Mccullough RN) Living Will: No (09/27/2016 17:40:Divina Mccullough RN) Organ Donor: Yes (09/27/2016 17:40:Divina Mccullough RN) Pt Rights Information Given: Yes (09/27/2016 17:40:Divina Mccullough RN) Pt Understands Pt Rights: Yes (09/27/2016 17:40:Divina Mccullough RN) LEARNING ASSESSMENT Knowledge Level: Understands L_D Process; Understands Care Activities; Understands Diagnosis (09/27/2016 17:40:Divina Mccullough RN) Barriers to Learning: Pain (09/27/2016 17:40:Divina Mccullough RN) Learning Readiness: Motivated (09/27/2016 17:40:Divina Mccullough RN) Learns Best By: 1 to 1 Instruction (09/27/2016 17:40:Divina Mccullough RN) Learning Needs: Labor and Delivery Process; Pain Management; Symptoms to Report; Treatment Plan; Medication; Diagnosis; Nutrition; Equipment; Infant Care; Community Resources (09/27/2016 17:40:Divina Mccullough RN) DOMESTIC VIOLANCE SCREENING Dom Viol Threatened/Hurt: No (09/27/2016 17:40:Divina Mccullough RN) Hx of Abuse/Neglect past 2yrs: No (09/27/2016 17:40:Divina Mccullough RN) Feel Unsafe Going Home: No (09/27/2016 17:40:Divina Mccullough RN) Addt'l Observ Indicating Abuse: No (09/27/2016 17:40:Divina Mccullough RN) Reason Unable to Complete Screen: N/A, Screen Completed (09/27/2016 17:40:Divina Mccullough RN) Considered Personal Harm/Suicide: No (09/27/2016 17:40:Divina Mccullough RN) NUTRITIONAL/FUNCTIONAL SCREENING Problem with Appetite >5 Days: No (09/27/2016 17:40:Divina Mccullough RN) Chew/Swallow Difficulties: No (09/27/2016 17:40:Divina Mccullough RN) Inappropriate Wt Gain/Loss: No (09/27/2016 17:40:Divina Mccullough RN) Presence Skin Breakdown/Ulcer: No (09/27/2016 17:40:Divina Mccullough RN) Special Diet: No (09/27/2016 17:40:Divina Mccullough RN) Pt Requests Career Services Director Visit: No (09/27/2016 17:40:Divina Mccullough RN) Hx of Any of the Following?: N/A (09/27/2016 17:40:Divina Mccullough RN) New Diagnosis of: N/A (09/27/2016 17:40:Divina Mccullough RN) Requires Assist w/Ambulation: No (09/27/2016 17:40:Divina Mccullough RN) Uses Assist Device to Ambulate: No (09/27/2016 17:40:Divina Mccullough RN) Pt Requires Help w/ADL's: No (09/27/2016 17:40:Divina Mccullough RN)
--- NOTE | 2016-09-28 18:15 | L&D Care Plan ---
LD CARE PLANS Datetime Report Generated by CPN: 09/28/2016 18:15 Datetime: 09/27/2016 17:33 Pain State: Actual (Shanda Guzman RN) Related To: Labor and Delivery Process; Complication(s) of ; Treatment and Procedures; Post (Shanda Guzman RN) Goal(s): Patients Pain will be Assessed and Managed; Patient will Verbalize Adequate Relief of Pain or the Ability to [place] with Current Pain (Shanda Guzman RN) Interventions: Assess Pain Severity on Scale of 0 (None) to 5 (Severe); Assess Type, Location and Intensity of Pain Each Time Client Reports Discomfort and Notify Provider if Unusal Pain Develops; Encourage Proper Breathing and Relaxation Techniques; Offer Alternatives Such as Repositioning, Calm Environment, Massages, Diversional Activities, Ice Pack, Splinting, and Ambulation; Administer Analgesics as Ordered; Assist with Epidural Placement as Appropriate; Evaluate Therapeutic Effectiveness of Medication and Treatments (Shanda Guzman RN) Outcome: Patient will Report Absence or Relief of Pain Consistent with Established Pain Goal (Shanda Guzman RN) Status: Ongoing (Shanda Guzman RN) Outcome: Patient will have a Decrease in Signs and Symptoms of Discomfort (Shanda Guzman RN) Status: Ongoing (Shanda Guzman RN) Outcome: Pain will be Controlled During Procedures (Shanda Guzman RN) Status: Ongoing (Shanda Guzman RN) Anxiety State: Risk For (Shanda Guzman RN) Related To: Labor and Delivery Process; Perceived or Actual Threat to ; Fear of Unknown; Situational Crisis; Significant Life Event (Shanda Guzman RN) Goal(s): Patient will have Decreased Anxiety and be able to Function at Acceptable Levels (Shanda Guzman RN) Interventions: Assess Verbal and Nonverbal Behavioral Indicators of Anxiety; Assist Patient to Identify and Verbalize Symptoms of Anxiety; Identify and Demonstrate Techniques to Control Anxiety; Assist Patient with Coping Mechanisms to Manage Anxiety; Provide Theraputic Touch for the Patient; Explain to Patient, Using a Calm Reassuring Approach and Nonmedical Terms, All Activities, Procedures, and Concerns; Instruct Patient and Family about Post Discharge Care, Limitations, Symptoms to Report and Resources Available (Shanda Guzman RN) Outcome: Patient will Identify, Verbalize and Demonstrate Techniques to Control Anxiety (Shanda Guzman RN) Status: Ongoing (Shanda Guzman RN) Outcome: Patient's Posture, Facial Expressions, Gestures and Activity Level will Reflect Decreased Anxiety (Shanda Guzman RN) Status: Ongoing (Shanda Guzman RN) Outcome: Patient will Verbalize a Sense of Control and/or Acceptance of the Situation (Shanda Guzman RN) Status: Ongoing (Shanda Guzman RN) Outcome: Patient will Identify and Utilize Support Person (Shanda Guzman RN) Status: Ongoing (Shanda Guzman RN) Knowledge Deficit State: Risk For (Shanda Guzman RN) Related To: Labor and Delivery Process; Treatment and Procedures; Impending Alterations in Family Dynamics (Shanda Guzman RN) Goal(s): Patient will Accurately Verbalize Understanding of Plan of Care and Treatment; Patient and Family will Accurately Verbalize Understanding of the Disease Process (Shanda Guzman, SANKET) Interventions: Assess Motivation and Willingness of Patient/Family to Learn; Assess Preferred Learning Mode: One to One Instruction, Reading, Videos, Group Discussion or Demonstration; Assess Barriers to Learning: Pain, Emotional State, Language Barrier, Cognitive Impairment, Visual or Hearing Deficits; Assess Patient and Family Knowledge of Disease Process, Medications and Treatment; Discuss Therapy and/or Treatment Options, Describe Rationale Behind Management, Therapy and Treatment Recommendations; Instruct Patient and Family on Signs and Symptoms to Report; Instruct Patient and Family on Medication Effects and Side Effects; Provide Appropriate and Timely Education Using Multiple Techniques; Provide Patient and Family with Support Group Information and Resources; Give Clear and Thorough Explanations and Demonstrations (Shanda Guzman RN) Outcome: Patient and Family will Verbalize Understanding of Condition, Treatment and Signs and Symptoms to Report (Shanda Guzman RN) Status: Ongoing (Shanda Guzman RN) Outcome: Patient will Identify Perceived Learning Needs and Express Motivation to Learn (Shanda Guzman RN) Status: Ongoing (Shanda Guzman RN) Outcome: Patient will Verbalize Understanding of Desired Content, and/or Performs Desired Skill Prior to Discharge (Shanda Guzman RN) Status: Ongoing (Shanda Guzman RN) Infection State: Risk For (Shanda Guzman RN) Related To: Prolonged Labor or Induction; Premature/Prolonged Rupture of Membranes; Invasive Procedures (Shanda Guzman RN) Goal(s): The Patient will be Free of Infection, Vital Signs Stable and Lab Work within Normal Parameters (Shanda Guzman RN) Interventions: Instruct and Reinforce Proper Handwashing, Hygiene, and Care Techniques to Patient and Family; Monitor Vital Signs; Monitor Patient for the Following Signs of Infection: Fever, Abdominal Tenderness, Unusual Discharge; Monitor Aminiotic Fluid, Urine and Lochia for Color and Odor; Observe Wounds, Incisions and Invasive Line Sites for Redness, Drainage and Edema; Assess IV Sites per Hospital Policy; Monitor Lab and Test Results and Notify Provider of Abnormal Findings; Assess Nutritional Status and Promote Good Nutrition (Shanda Guzman RN) Outcome: Patient will Remain Free of Infection (Shanda Guzman RN) Status: Ongoing (Shanda Guzman RN) Outcome: Infection will be Recognized Early to Allow for Prompt Treatment (Shanda Guzman RN) Status: Ongoing (Shanda Guzman RN) Outcome: Patient will have Vital Signs Within Expected Range (Shanda Guzman RN) Status: Ongoing (Shanda Guzman RN) Fluid Volume State: Risk For (Shanda Guzman RN) Related To: Prolonged Labor or Induction; Hemorrhage; Anesthesia (Shanda Guzman RN) Goal(s): Patient will Achieve and Maintain a Balanced Fluid Volume Status; Hemodynamically Stable (Shanda Guzman RN) Interventions: Monitor Vital Signs; Auscultate Breath Sounds; Monitor Patient for Skin Turgor, Mucous Membranes, Dry Skin, Weakness, Headaches and Confusion; Provide Oral Fluids as Ordered; Initiate and Maintain Intravenous Fluids as Ordered; Monitor Intake and Output as Indicated Per Patient Status; Accurately Measure Blood Loss; Monitor Lab and Test Results as Obtained and Notify Provider of Abnormal Findings; Monitor Patient's Weight (Shanda Guzman RN) Outcome: Patient will have Clear Lung Sounds (Shanda Guzman RN) Status: Ongoing (Shanda Guzman RN) Outcome: Patient will have Vital Signs within Expected Range (Shanda Guzman RN) Status: Ongoing (Shanda Guzman RN) Outcome: Urine Output will be within Expected Range (Shanda Guzman RN) Status: Ongoing (Shanda Guzman RN) Outcome: Patient will have Minimal Generalized or Upper Extremity Edema (Shanda Gzuman RN) Status: Ongoing (Shanda Guzman RN) Injury State: Risk For (Shanda Guzman RN) Related To: Labor and Delivery Process; Anesthesia; Risk to Status; Uteroplacental Perfusion; Decreased Mobility; Hemorrhage, Placenta Previa and or Placental Abruption (Shanda Guzman RN) Goal(s): Patient will Remain Free from Injury (Shanda Guzman RN) Interventions: Monitoring as per Hospital Protocol; Assess Neurological Status; Perform Risk Assessment of Patients with Induction and ; Perform Fall Risk Assessment and Prevention per Hospital Protocol; Perform DVT Risk Assessment and Prophylaxis per Hospital Protocol; Ensure that Oxygen, Suction, and Resuscitation Medications and Equipment are Readily Available; Confirm Patient ID Prior to Procedure(s) and Medication Administration per Hospital Policy (Shanda Guzman RN) Outcome: Successful Fall Risk Prevention (Shanda Guzman RN) Status: Ongoing (Shanda Guzman RN) Outcome: Patient will Deliver Infant without Adverse Sequela (Shanda Guzman RN) Status: Ongoing (Shanda Guzman RN) Outcome: Patient's Neurological Status will Remain Stable (Shanda Guzman RN) Status: Ongoing (Shanda Guzman RN) Impaired Skin Integrity State: Risk For (Shanda Guzman RN) Related To: Vaginal Delivery; Invasive Procedures (Shanda Guzman, SANKET) Goal(s): Patient will Maintain Optimal Skin Integrity, Free of Breakdown, Injury or Infection (Shanda Guzman RN) Interventions: Complete Screening for Pressure Ulcer Risk and Initiate Protocol per Hospital Policy; Monitor Site of Skin Impairment for Color Changes, Redness, Swelling, Warmth, Pain or Other Signs of Infection; Encourage and Assist with Position Changes; Monitor Patient's Mobility Status; Provide Adequate Nutrition and Fluids; Teach Patient Appropriate Hygienic Care; Teach Patient/Family Skin Care Management (Shanda Guzman, SANKET) Outcome: Patient will not have Evidence of Injury Such as Skin Breakdown, Scrapes, Cuts, or Bruising (Shanda Guzman RN) Status: Ongoing (Shanda Guzman RN) Outcome: Patient will Report Any Altered Sensation or Pain at Site of Skin Impairment (Shanda Guzman RN) Status: Ongoing (Shanda Guzman RN) Outcome: Patients Incisions and Wounds will be without Signs or Symptoms of Infection (Shanda Guzman RN) Status: Ongoing (Shanda Guzman RN) Outcome: Patient will Demonstrate Understanding of Plan to Heal Skin and Prevent Reinjury and Verbalize Risk Factors (Shanda Guzman RN) Status: Ongoing (Shanda Guzman RN) Parenting Impaired State: Risk For (Shanda Guzman RN) Related To: Apprehension Related to [place] Care (Shanda Guzman RN) Goal(s): Parents will Demonstrate Progressive Parenting Behaviors (Shanda Guzman RN) Interventions: Assess for Adequacy of Support Systems; Observe and Encourage Patient/Family Infant Attachment and Bonding Activities and Provide Feedback; Assess Patient/Family Understanding of 's Condition and Provide Accurate Information About Condition, Treatment and Prognosis; Assess for Patient/Family Behaviors that May Indicate Lack of Attachment; Provide a Safe Non-judgmental Environment for Patient/Family to Discuss Concerns; Promote Patient/Family Cohesiveness by Encouraging Discussion and Problem Solving; Back Hoe Machine Operator Referral as Indicated (Shanda Guzman RN) Outcome: Patient/Family will Discuss Their Fears and the Possibility of Difficulties with Parenting (Shanda Guzman RN) Status: Ongoing (Shanda Guzman RN) Outcome: Patient/Family will Exhibit Appropriate Bonding Behaviors with Infant (Shanda Guzman RN) Status: Ongoing (Shanda Guzman RN) Outcome: Patient/Family will Verbalize Positive Feelings and Demonstrate Affection and Caring Toward (Shanda Guzman RN) Status: Ongoing (Shanda Guzman RN) Nutrition State: Risk For (Shanda Guzman RN) Related To: ; (Shanda Guzman RN) Goal(s): Patient will have an Intake of Nutrients Sufficient to Meet Metabolic Needs (Shanda Guzman RN) Interventions: Nutritional Screening and Assessment per Hospital Policy; Consult Hand Ironer for Further Assessment and Recommendations Regarding Food Preferences and Nutritional Support; Allow Patient to Plan and Order Diet when Possible; Monitor Laboratory Values That Indicate Nutritional Well-being; Consult Corporate Communications Specialist for Nutritional Support Regarding Requirements; Document Actual Weight Initially and Weekly (Do Not Estimate); Encourage Patient Participation in Maintaining a Food Log as Indicated; Educate Patient on the Importance of Maintaining an Adequate Caloric Intake (Shanda Guzman, SANKET) Outcome: Patient will Receive Adequate Calories and Fluid Volume to Meet Metabolic Needs (Shanda Guzman RN) Status: Ongoing (Shanda Guzman RN) Outcome: Patient will Select Foods or Meals that Support Adequate Nutrition (Shanda Guzman RN) Status: Ongoing (Shanda Guzman RN)
[2016-09-29] MEDS: IBUPROFEN 800 MG TABLET PO SCH ×2 (05:09→15:07)
--- NOTE | 2016-09-29 06:00 | L&D General Admission ---
General Admit Datetime Report Generated by CPN: 09/29/2016 06:00 INFORMATION Patient Age: 21 (09/26/2016 10:01:QS system process) EDC: 09/25/2016 00:00 (09/26/2016 10:13:Jerome Driscoll RN) LMP: 12/20/2015 00:00 (09/26/2016 10:13:Jerome Driscoll RN) : 1 (09/26/2016 10:13:Jerome Driscoll RN) Para: 0 (09/26/2016 10:13:Jerome Driscoll RN) Term: 0 (09/26/2016 10:13:Shanda Guzman RN) : 0 (09/26/2016 10:13:Shanda Guzman RN) Spontaneous Abortions: 0 (09/26/2016 10:13:Shanda Guzman RN) Induced Abortions: 0 (09/26/2016 10:13:Shanda Guzman RN) Livin (09/26/2016 10:13:Shanda Guzman RN) Cesareans: 0 (09/26/2016 10:13:Shanda Guzman RN) VBACs: 0 (09/26/2016 10:13:Shanda Guzman RN) Ectopic: 0 (09/26/2016 10:13:Shanda Guzman RN) Multiple Births: 0 (09/26/2016 10:13:Shanda Guzman RN) Baby, Number in Womb: 1 (09/26/2016 10:13:Betzy Patricio RN) CARE Primary Cnc Lathe Machine Operator: [facility] (09/26/2016 10:13:Jerome Driscoll RN) Cnc Lathe Machine Operator Other: [facility] (09/26/2016 10:13:Jerome Driscoll RN) Month of 1st Visit: February (09/26/2016 10:13:Divina Mccullough RN) Adequate Care: Yes (09/26/2016 10:13:Jerome Driscoll RN) Prepregnancy Weight (lb): 142 (09/26/2016 10:13:Jerome Driscoll RN) Prepregnancy Weight (kg): 64.5 (09/26/2016 10:13:QS system process) Height (in): 64 (09/28/2016 09:16:QS system process) ALLERGIES Medication Allergy: No (09/26/2016 10:13:Jerome Driscoll RN) Medication Allergies: No Known Allergies (09/27/2016) (09/27/2016 09:56:QS system process) Latex Allergy: No Latex Allergies (09/26/2016 10:13:Jerome Driscoll RN) Food Allergies: NONE (09/26/2016 10:13:Divina Mccullough RN) Environmental Allergies: NONE (09/26/2016 10:13:Divina Mccullough RN) COMMUNICATION Primary Language: Kyrgyz (09/26/2016 10:13:Jerome Driscoll RN) Medical Tx Preferred Language: Kyrgyz (09/26/2016 10:13:Shanda Guzman RN) Kyrgyz Communication Ability: Speaks Kyrgyz; Reads Kyrgyz (09/26/2016 10:13:Divina Mccullough RN) Communication Barrier(s): None (09/26/2016 10:13:Jerome Driscoll RN) DEMOGRAPHICS Address: [address] [place] [id number] (09/26/2016 10:01:QS system process) Zipcode: [address] (09/26/2016 10:01:QS system process) Home (09/26/2016 10:01:QS system process) SSN: [id number] (09/26/2016 10:01:QS system process) Next of Kin Name: NATALI CHERRY (09/26/2016 10:01:QS system process) Next of Kin (09/26/2016 10:01:QS system process) Next of Kin Relationship: MO (09/26/2016 10:01:QS system process) Date of : 1995 (09/26/2016 10:01:QS system process) Marital Status: Single (09/26/2016 10:01:QS system process) Sex: Female (09/26/2016 10:01:QS system process) Occupation: None (09/26/2016 10:13:Jerome Driscoll RN) Race: (09/26/2016 10:01:QS system process) Ethnicity: Non- or (09/26/2016 10:01:QS system process) Hoahaoism: Alevism (09/26/2016 10:01:QS system process) Education: 12 (09/26/2016 10:13:Jerome Driscoll RN) FOB Involved: Yes (09/26/2016 10:13:Jerome Driscoll RN) Father of Baby Name: Tay Ashley (09/26/2016 10:13:Jerome Driscoll RN) Person Auth to release pt PHI: Natali Cherry (09/26/2016 10:13:Jerome Driscoll RN) DRUG AND ALCOHOL USE Alcohol: No (09/26/2016 10:13:Jerome Driscoll RN) Cigarettes: Never Smoker. [id number] (09/26/2016 10:13:Jerome Driscoll RN) Marijuana: No (09/26/2016 10:13:Jerome Driscoll RN) Cocaine: No (09/26/2016 10:13:Jerome Driscoll RN) Other Illicit Drugs: No (09/26/2016 10:13:Jerome Driscoll RN) VACCINE HISTORY Influenza Vaccine: Yes (09/26/2016 10:13:Jerome Driscoll RN) Influenza Date: 07/06/16 (09/26/2016 10:13:Jerome Driscoll RN) Pneumococcal Vaccine: Uncertain (09/26/2016 10:13:Jerome Driscoll RN) Tetanus Vaccine: Yes (09/26/2016 10:13:Shanda Guzman RN) Tetanus Date: 06-16-16 (09/26/2016 10:13:Divina Mccullough RN) Tdap Vaccine: Yes (09/26/2016 10:13:Jerome Driscoll RN) Tdap Date: 07/06/16 (09/26/2016 10:13:Jerome Driscoll RN) Hepatitis B Vaccine: Yes (09/26/2016 10:13:Jerome Driscoll RN) Hot Plate Plywood Press Offbearer: [employer] (09/26/2016 10:13:Jerome Driscoll RN) Feeding Preference: Both (09/26/2016 10:13:Jerome Driscoll RN) Benefit of Breast Feed Discussed: Yes (09/26/2016 10:13:Jerome Driscoll RN) Circumcision: Yes (09/26/2016 10:13:Jerome Driscoll RN) Classes Attended: No (09/26/2016 10:13:Jerome Driscoll RN) Tubal Ligation: No (09/26/2016 10:13:Jerome Driscoll RN) Tubal Authorization Signed: N/A (09/26/2016 10:13:Jerome Driscoll RN) Consent: N/A (09/26/2016 10:13:Jerome Driscoll RN) Consent Signed: N/A (09/26/2016 10:13:Jerome Driscoll RN) Pain Management Plans: Epidural (09/26/2016 10:13:Jerome Driscoll RN) Plans for Labor and Delivery: None (09/26/2016 10:13:Jerome Driscoll RN) Support Person: Tay Ashley (09/26/2016 10:13:Jerome Driscoll RN) Support Person Relationship: Significant Other (09/26/2016 10:13:Jerome Driscoll RN) Cultural/Spritual Practice: No (09/26/2016 10:13:Jerome Driscoll RN) Spir/Cult Dietary Needs: No (09/26/2016 10:13:Jerome Driscoll RN) LIVING SITUATION/DISCHARGE PLAN Living Arrangements: Apartment (09/26/2016 10:13:Jerome Driscoll RN) Adequate Access to:: Electric; Heat; Refrigeration; Plumbing/Running water; Phone; Transportation (09/26/2016 10:13:Jerome Driscoll RN) WIC Program: Yes (09/26/2016 10:13:Jerome Driscoll RN) Discharge Circus Supervisor Person: Tay Ashley (09/26/2016 10:13:Jerome Driscoll RN) Person to Help after Discharge: Tay Ashley (09/26/2016 10:13:Jerome Driscoll RN) Currently Using Commun Resources: Yes (09/26/2016 10:13:Jerome Driscoll RN) Specify Current Resource Used: Medicaid (09/26/2016 10:13:Jerome Driscoll RN) Outside Agency/Patient Observation Assistant: Yes (09/26/2016 10:13:Jerome Driscoll RN) Car Seat for Discharge: Yes (09/26/2016 10:13:Jerome Driscoll RN) Adoption Requested: No (09/26/2016 10:13:Jerome Driscoll RN) Pt Contact w/infant Post : N/A (09/26/2016 10:13:Jerome Driscoll RN) LABS Blood Type: A Positive (09/26/2016 10:13:Jolene Holloway RN) Hemoglobin: 10.9 L (09/27/2016 17:55:QS system process) Hematocrit: 33.4 L (09/27/2016 17:55:QS system process) MCV: 84 (09/27/2016 17:55:QS system process) Group Beta Strep: NEGATIVE (09/26/2016 10:13:Jerome Driscoll RN) Gonorrhea: Negative (09/26/2016 10:13:Jerome Driscoll RN) Chlamydia: Negative (09/26/2016 10:13:Jerome Driscoll RN) HIV Results: NEGATIVE (09/27/2016 18:34:QS system process) Rubella: POSITIVE NEGATIVE IF LESS THAN OR EQUAL TO 9.99 IU/mL POSITIVE IF GREATER THAN OR EQUAL TO 10.0 IU/mL (09/27/2016 18:34:QS system process) Rubella Titer: 38.00 (09/27/2016 18:34:QS system process) OB/PREVIOUS HISTORY LMP: 12/20/2015 00:00 (09/26/2016 10:13:Jerome Driscoll RN) Previous Procedures: None (09/26/2016 10:13:Jerome Driscoll RN) Current Procedures: Ultrasound (09/26/2016 10:13:Jerome Driscoll RN) History of Previous : No (09/26/2016 10:13:Jerome Driscoll RN) History of Gestational Diabetes: No (09/26/2016 10:13:Jerome Driscoll RN) History of PIH: No (09/26/2016 10:13:Jerome Driscoll RN) History of Incompetent Cervix: No (09/26/2016 10:13:Jerome Driscoll RN) History of Placenta Previa/Abrup: No (09/26/2016 10:13:Jerome Driscoll RN) History of Macrosomia: No (09/26/2016 10:13:Jerome Driscoll RN) History of IUGR: No (09/26/2016 10:13:Jerome Driscoll RN) History of Hemorrhage: No (09/26/2016 10:13:Jerome Driscoll RN) History of Loss/Stillborn: No (09/26/2016 10:13:Jerome Driscoll RN) History of : No (09/26/2016 10:13:Jerome Driscoll RN) History of D (Rh) Sensitization: No (09/26/2016 10:13:Jerome Driscoll RN) History Recurrent Loss/Stillborn: No (09/26/2016 10:13:Jerome Driscoll RN) History Depression/PP Depression: No (09/26/2016 10:13:Jerome Driscoll RN) History of Uterine Anomaly/HAL: No (09/26/2016 10:13:Jerome Driscoll RN) History of Infertility: No (09/26/2016 10:13:Jerome Driscoll RN) History of ART Treatment: No (09/26/2016 10:13:Jerome Driscoll RN) History of HAL: No (09/26/2016 10:13:Jerome Driscoll RN) Comments Obstetrical History: G1 Current (09/26/2016 10:13:Jerome Driscoll RN) MEDICAL HISTORY Med Hx Diabetes: No (09/26/2016 10:13:Jerome Driscoll RN) Med Hx Hypertension: No (09/26/2016 10:13:Jerome Driscoll RN) Med Hx Heart Disease: No (09/26/2016 10:13:Jerome Driscoll RN) Med Hx Autoimmune Disorder: No (09/26/2016 10:13:Jerome Driscoll RN) Med Hx Kidney Disease/UTI: No (09/26/2016 10:13:Jerome Driscoll RN) Med Hx Neurologic/Epilepsy: No (09/26/2016 10:13:Jerome Driscoll RN) Med Hx Psychiatric Disorders: Yes (09/26/2016 10:13:Jerome Driscoll RN) Med Hx Hepatitis/Liver Disease: No (09/26/2016 10:13:Jerome Driscoll RN) Med Hx Varicosities/Phlebitis: No (09/26/2016 10:13:Jerome Drisocll RN) Med Hx Thyroid Dysfunction: No (09/26/2016 10:13:Jerome Driscoll RN) Med Hx Trauma/Violence: No (09/26/2016 10:13:Jerome Driscoll RN) Med Hx Blood Transfusion: No (09/26/2016 10:13:Jerome Driscoll RN) Med Hx Pulmonary (Asthma,TB): No (09/26/2016 10:13:Jerome Driscoll RN) Med Hx Breast: No (09/26/2016 10:13:Jerome Driscoll RN) Med Hx KNOWLEDGE ANALYST Surgery: No (09/26/2016 10:13:Jerome Driscoll RN) Med Hx Hospitalization/Surgery: No (09/26/2016 10:13:Jerome Driscoll RN) Med Hx Anesthetic Complications: No (09/26/2016 10:13:Jerome Driscoll RN) Med Hx Abnormal Pap Smear: No (09/26/2016 10:13:Jerome Driscoll RN) Other Medical Diseases: No (09/26/2016 10:13:Jerome Driscoll RN) Med Hx Significant Family Hx: No (09/26/2016 10:13:Jerome Driscoll RN) Details of Med/Surg Hx: Anxiety; Hx Pancreatitis and elevated lipase; Anemia; Vertigo (09/26/2016 10:13:Jerome Driscoll RN) INFECTIOUS HISTORY Inf Hx Gonorrhea: No (09/26/2016 10:13:Jerome Driscoll RN) Inf Hx Chlamydia: No (09/26/2016 10:13:Jerome Driscoll RN) Inf Hx Syphilis: No (09/26/2016 10:13:Jerome Driscoll RN) Inf Hx HIV/AIDS: No (09/26/2016 10:13:Jerome Driscoll RN) Inf Hx Human Papilloma Virus: No (09/26/2016 10:13:Jerome Driscoll RN) Inf Hx Pt/Partner Genital Herpes: No (09/26/2016 10:13:Jerome Driscoll RN) Inf Hx Tuberculosis/Exposure: No (09/26/2016 10:13:Jerome Driscoll RN) Inf Hx Hepatitis B,C: No (09/26/2016 10:13:Jerome Driscoll RN) Inf Hx Rash or Viral Illness: No (09/26/2016 10:13:Jerome Driscoll RN) GENETIC HISTORY Gen Hx Age >=35 at RAS[facility]: No (09/26/2016 10:13:Jerome Driscoll RN) Gen Hx Thalassemia: No (09/26/2016 10:13:Jerome Driscoll RN) Gen Hx Congenital Heart Defect: No (09/26/2016 10:13:Jerome Driscoll RN) Gen Hx Neural Tube Defect: No (09/26/2016 10:13:Jerome Driscoll RN) Gen Hx Down's Syndrome: No (09/26/2016 10:13:Jerome Driscoll RN) Gen Hx Aldair-Sachs: No (09/26/2016 10:13:Jerome Driscoll RN) Gen Hx Sun: No (09/26/2016 10:13:Jerome Driscoll RN) Gen Hx Familial Dysautonomia: No (09/26/2016 10:13:Jerome Driscoll RN) Gen Hx Sickle Cell Disease/Trait: No (09/26/2016 10:13:Jerome Driscoll RN) Gen Hx Hemophilia/Blood Disorder: No (09/26/2016 10:13:Jerome Driscoll RN) Gen Hx Muscular Dystrophy: No (09/26/2016 10:13:eJrome Driscoll RN) Gen Hx Cystic Fibrosis: No (09/26/2016 10:13:Jerome Driscoll RN) Gen Hx Huntingtons Chorea: No (09/26/2016 10:13:Jerome Driscoll RN) Gen Hx Mental Retardation/Autism: No (09/26/2016 10:13:Jerome Driscoll RN) Gen Hx Tested for Fragile X: No (09/26/2016 10:13:Jerome Driscoll RN) Gen Hx Other Inher/Chromosomal: No (09/26/2016 10:13:Jerome Driscoll RN) Gen Hx Maternal Metabolic DO: No (09/26/2016 10:13:Jerome Driscoll RN) Gen Hx Pt Father or FOB Defect: No (09/26/2016 10:13:Jerome Driscoll RN) Gen Hx Other Genetic History: No (09/26/2016 10:13:Jerome Driscoll RN) Gen Hx Drugs/Meds since LMP: No (09/26/2016 10:13:Jerome Driscoll RN) Gen Hx Medications: Tylenol Benadryl PNV Iron Vitamin C (09/26/2016 10:13:Jerome Driscoll RN)
--- NOTE | 2016-09-29 06:00 | L&D Current Admission ---
Current Admit Datetime Report Generated by CPN: 09/29/2016 06:00 ADMISSION INFORMATION Current Admit Date/Time: 09/27/2016 17:30 (09/27/2016 17:40:Divina Mccullough RN) Reason for Admission: Onset of Labor (09/27/2016 17:40:Divina Mccullough RN) Chief Complaint: Contractions (09/27/2016 18:36:Divina Mccullough RN) EGA per Dates: 40.2 (09/27/2016 17:40:QS system process) Method of Arrival: Wheelchair (09/27/2016 17:40:Divina Mccullough RN) Reason for Induction: Not Applicable (09/27/2016 17:40:Divina Mccullough RN) Records Available: Yes (09/27/2016 17:40:Divina Mccullough RN) General Admission Information: Reviewed; Updated; Confirmed (09/27/2016 17:40:Divina Mccullough RN) General Admission Reviewed By: Jia Mccullough RN (09/27/2016 17:40:Divina Mccullough RN) BELONGINGS/ADVANCED DIRECTIVES Other Belongings: See [facility] Valuables consent (09/27/2016 17:40:Divina Mccullough RN) Disposition of Belongings: Kept with Patient (09/27/2016 17:40:Divina Mccullough RN) Advance Direct for Healthcare: No, and Wants No Information (09/27/2016 17:40:Divina Mccullough RN) Durable Power of Lunchroom Worker: No (09/27/2016 17:40:Divina Mccullough RN) Living Will: No (09/27/2016 17:40:Divina Mccullough RN) Organ Donor: Yes (09/27/2016 17:40:Divina Mccullough RN) Pt Rights Information Given: Yes (09/27/2016 17:40:Divina Mccullough RN) Pt Understands Pt Rights: Yes (09/27/2016 17:40:Divina Mccullough RN) LEARNING ASSESSMENT Knowledge Level: Understands L_D Process; Understands Care Activities; Understands Diagnosis (09/27/2016 17:40:Divina Mccullough RN) Barriers to Learning: Pain (09/27/2016 17:40:Divina Mccullough RN) Learning Readiness: Motivated (09/27/2016 17:40:Divina Mccullough RN) Learns Best By: 1 to 1 Instruction (09/27/2016 17:40:Divina Mccullough RN) Learning Needs: Labor and Delivery Process; Pain Management; Symptoms to Report; Treatment Plan; Medication; Diagnosis; Nutrition; Equipment; Infant Care; Community Resources (09/27/2016 17:40:Divina Mccullough RN) DOMESTIC VIOLANCE SCREENING Dom Viol Threatened/Hurt: No (09/27/2016 17:40:Divina Mccullough RN) Hx of Abuse/Neglect past 2yrs: No (09/27/2016 17:40:Divina Mccullough RN) Feel Unsafe Going Home: No (09/27/2016 17:40:Divina Mccullough RN) Addt'l Observ Indicating Abuse: No (09/27/2016 17:40:Divina Mccullough RN) Reason Unable to Complete Screen: N/A, Screen Completed (09/27/2016 17:40:Divina Mccullough RN) Considered Personal Harm/Suicide: No (09/27/2016 17:40:Divina Mccullough RN) NUTRITIONAL/FUNCTIONAL SCREENING Problem with Appetite >5 Days: No (09/27/2016 17:40:Divina Mccullough RN) Chew/Swallow Difficulties: No (09/27/2016 17:40:Divina Mccullough RN) Inappropriate Wt Gain/Loss: No (09/27/2016 17:40:Divina Mccullough RN) Presence Skin Breakdown/Ulcer: No (09/27/2016 17:40:Divina Mccullough RN) Special Diet: No (09/27/2016 17:40:Divina Mccullough RN) Pt Requests Veneer Jointer Operator Visit: No (09/27/2016 17:40:Divina Mccullough RN) Hx of Any of the Following?: N/A (09/27/2016 17:40:Divina Mccullough RN) New Diagnosis of: N/A (09/27/2016 17:40:Divina Mccullough RN) Requires Assist w/Ambulation: No (09/27/2016 17:40:Divina Mccullough RN) Uses Assist Device to Ambulate: No (09/27/2016 17:40:Divina Mccullough RN) Pt Requires Help w/ADL's: No (09/27/2016 17:40:Divina Mccullough RN)
[2016-09-29 07:38] LABS: HEMATOCRIT 26.5 % (36.0-47.0); HGB HCT DIFFERENCE -0.4; MEAN CORPUSCULAR HEMOGLOBIN 28.2 pg (27.0-33.4); MEAN CORPUSCULAR VOLUME 86 fl (80-97); RED BLOOD COUNT 3.09 10^6/uL (3.72-5.28); RED CELL DISTRIBUTION WIDTH 15.2 % (11.5-14.0); WHITE BLOOD COUNT 12.8 10^3/uL (4.0-10.5)
[2016-09-29 07:44] LABS: HEMOGLOBIN 8.7 g/dL (12.0-15.5)
[2016-09-29 07:48] VITALS: BP 112/69
--- NOTE | 2016-09-29 09:29 | PDOC PROGRESS REPORT ---
Subjective-OB Subjective: Post Delivery Day: 21 year old. Denies any needs at this time Doing well, no c/o, ambulating, scant bleeding, ready to go home Physical Exam (OB) Vital Signs: Temp Pulse Resp BP Pulse Ox 97.7 F 71 16 112/69 98 09/29/16 07:32 09/29/16 07:32 09/29/16 07:32 09/29/16 07:32 09/29/16 07:32 Intake & Output 09/28/16 09/29/16 09/30/16 06:59 06:59 06:59 Weight 83.915 kg - Lochia Lochia Amount: Small 10-25 ml Lochia Color: Rubra/Red - Abdomen Description: Soft, Round Hernia Present: No Fundal Description: Firm, Midline Fundal Height: u/u - u/2 Objective-Diagnostic Laboratory: 09/29/16 07:03 09/29/16 07:03 WBC 12.8 H RBC 3.09 L Hgb 8.7 L D Hct 26.5 L MCV 86 MCH 28.2 MCHC 33.0 RDW 15.2 H Plt Count 193 Assessment and Plan(PN) - Assessment and Plan (1) Anxiety Is this a current diagnosis for this admission?: Yes (2) Anemia Is this a current diagnosis for this admission?: Yes (3) Vaginal delivery Is this a current diagnosis for this admission?: Yes - Time Spent with Patient Time with patient: Less than 15 minutes Medications reviewed and adjusted accordingly: Yes - Disposition Anticipated Discharge: Home Within: Other - home today
--- NOTE | 2016-09-29 09:34 | PDOC DISCHARGE SUMMARY ---
Final Diagnosis Discharge Date: 09/29/16 - Final Diagnosis (1) Anxiety Is this a current diagnosis for this admission?: Yes (2) Anemia Is this a current diagnosis for this admission?: Yes (3) Vaginal delivery Is this a current diagnosis for this admission?: Yes Discharge Data - Discharge Medication Home Medications: #108/Iron,Carbonyl/FA [Kosher Plus Iron Tab] 1 tab PO DAILY Ascorbic Acid [Vitamin C 500 mg Tablet] 1 tab PO DAILY 09/28/16 Ferrous Sulfate [Iron] 325 mg PO DAILY 09/28/16 Gestational Age: 40.3 Reason(s) for Admission: Onset of Labor, PROM Procedures: Ultrasound Intrapartum Procedure(s): Spontaneous Vaginal Delivery Complication(s): Laceration-Perineal, Laceration-Periurethral Laceration-Degree: 2nd - [place] Data Baby 1 Male at 1 minute: 9 at 5 minutes: 9 Weight: 3.374 kg - Diagnosis Test Laboratory: Temp Pulse Resp BP Pulse Ox 97.7 F 71 16 112/69 98 09/29/16 07:32 09/29/16 07:32 09/29/16 07:32 09/29/16 07:32 09/29/16 07:32 09/27/16 09/29/16 17:55 07:03 RBC 3.99 3.09 L Hgb 10.9 L 8.7 L D Hct 33.4 L 26.5 L - Discharge information/Instructions Discharge Activity: Activity As Tolerated Discharge Diet: As Tolerated Disposition: HOME, SELF-CARE Follow up with: [facility] in: 4, Weeks
[2016-09-29] MEDS: SENNOSIDES/DOCUSATE 8.6-50 MG 1 EACH TABLET PO SCH (10:35)
[2016-09-29] MEDS: FERROUS SULFATE 325 MG TABLET PO SCH (10:35)
[2016-09-29] MEDS: PRENATAL VITAMIN W-O CA NO5/FE FUMARATE/FA CAPSULE PO SCH (10:36)
[2016-09-29] MEDS: DOCUSATE SODIUM 100 MG CAPSULE PO SCH (10:36)
== END 2016-09-29 16:35 | disposition home or self-care (01) | DRG 775 ==
LOC: LC 17:16 → LR 17:32 → 2S 09-28 02:40
PROVIDERS: ADMIT Obstetrics & Gynecology; ATTEND Obstetrics & Gynecology
PROC: 10E0XZZ Delivery of Products of Conception, External Approach (ICD-10-PCS; principal; 2016-09-28)
PROC: 0KQM0ZZ Repair Perineum Muscle, Open Approach (ICD-10-PCS; 2016-09-28)
DX: O69.81X0 Labor and delivery complicated by cord around neck, without compression, not applicable or unspecified (principal); O70.1 Second degree perineal laceration during delivery; O99.344 Other mental disorders complicating childbirth; F41.9 Anxiety disorder, unspecified; O99.02 Anemia complicating childbirth; D64.9 Anemia, unspecified; Z3A.40 40 weeks gestation of pregnancy; Z37.0 Single live birth
CPT/HCPCS: 36415; 84112; 85025; 85027; 86592; 86701; 86762; 86850; 86900; 86901; 87340; J2300; J2370; J2405; J2590; J3490

== ENCOUNTER 2018-08-14 11:09 | Outpatient (CLI) | payer OTHER | END 2018-08-14 11:55 | disposition home or self-care (01) | LOC: LC 11:09 | PROVIDERS: ATTEND Obstetrics & Gynecology | PROC: 4A1HXCZ Monitoring of Products of Conception, Cardiac Rate, External Approach (ICD-10-PCS; principal; 2018-08-14) | DX: O36.8130 Decreased fetal movements, third trimester, not applicable or unspecified (principal); Z3A.37 37 weeks gestation of pregnancy | CPT/HCPCS: 59025 ==

== ENCOUNTER 2018-08-27 08:57 | Inpatient (IN) | payer OTHER ==
[2018-08-27] MEDS ORDERED: RINGERS SOLUTION,LACTATED 1,000 ML IV PRN (09:13)
[2018-08-27] MEDS ORDERED: RINGERS SOLUTION,LACTATED 1,000 ML IV ONE (09:13)
[2018-08-27] MEDS ORDERED: MISOPROSTOL 0.2 MG TABLET ONE (09:14)
[2018-08-27] MEDS ORDERED: OXYTOCIN/NORMAL SALINE 20 UNIT/1,000 ML RTUINJ ONE (09:14)
[2018-08-27] MEDS ORDERED: OXYTOCIN 10 UNIT/ML VIAL ONE (09:14)
[2018-08-27] MEDS ORDERED: LIDOCAINE 1% INJ-PF (10 MG/ML) 30 ML SDV ONE (09:14)
--- NOTE | 2018-08-27 09:23 | Admission Physical ---
Datetime Report Generated by CPN: 08/27/2018 09:22 CURRENT ADMISSION Chief Complaint: Uterine Contractions Admit Impression : Term, Intrauterine ; Active Labor; Intact Membranes Admit Plan: Admit to Unit; Initiate Labor Protocol ALLERGIES Medication Allergies: No Medication Allergies: No Known Allergies (08/14/2018) Latex: Latex Allergies OBSTETRICAL HISTORY EDC: 08/30/2018 00:00 : 2 Para: 1 Livin Gestational Diabetes: No Rh Sensitization: No Incompetent Cervix: No HAL: No Infertility: No ART Treatment: No Uterine Anomaly: No IUGR: No Hx Previous C/S: No Macrosomia: No Hx Loss/Stillborn: No PIH: No Hx : No Placenta Previa/Abruption: No Depression/PP Depression: No PTL/PROM: No Post Hemorrhage: No Current Procedures: Ultrasound; NST Obstetrical History Comments: G1: G2: current SEE RECORDS Alcohol: No Marijuana : No Cocaine: No Other Illicit Drugs: No Cigarettes: Never Smoker. [id number] MEDICAL HISTORY Diabetes: No Blood Transfusion: No Pulmonary Disease (Asthma, TB): No Breast Disease: No Hypertension: No Flight Radio Operator Surgery: No Heart Disease: No Hosp/Surgery: Yes Autoimmune Disorder: No Anesthetic Complications: No Kidney Disease: No Abnormal Pap Smear: No Neuro/Epilepsy: No Psychiatric Disorders: No Other Medical Diseases: No Hepatitis/Liver Disease: No Significant Family History: No Varicosities/Phlebitis: No Trauma/Violence : No Thyroid Dysfunction: No Medical History Comments: childbirth 2016, pancreatitis 2014 INFECTIOUS HISTORY Gonorrhea: No Genital Herpes: No Chlamydia: No Tuberculosis: No Syphilis: No Hepatitis: No HIV/AIDS Exposure: No Rash or Viral Illness: No HPV: No PHYSICAL EXAM General: Normal HEENT: Normal Neurologic: Normal Thyroid: Deferred Heart: Normal Lungs: Normal Breast: Deferred Back: Normal Abdomen: Normal Genitourinary Exam: Normal Extremities: Normal DTRs: Normal Pelvic Type: Adequate Vital Signs: Reviewed VAGINAL EXAM Dilatation: 8 Effacement: 100 Station: -2 MEMBRANES Membranes: Intact FETUS A EGA: 39.4 Monitoring: External US FHR- Baseline: 130 Variability: Moderate 6-25bpm Accelerations: 10X10 Decelerations: None FHR Category: Category II Presentation: Vertex Admit Comment: 23yo with history of pancreatitis in 2018 - (LFTs and amylase and lipase ordered). Uncomplicated . H/o Term delivery. A positive. GBS negative. Presents in active labor. She desires epidural. Will notify anesthesia. Admit for active labor and anticipate . PLANS FOR LABOR AND DELIVERY Labor and Delivery: None Pain Management: Epidural Feeding Preference: Both Benefit of Breast Feed Discussed: Yes Circumcision: N/A INFORMED CONSENT Informed Consent Obtained: Vaginal Delivery; Risks, Benefits and Alternatives Discussed Signature: with User ID: [email or web address]
[2018-08-27] MEDS ORDERED: FENTANYL/BUPIVACAINE/NS/PF 300 MCG/150 ML RTUINJ EPI ONE (09:45)
[2018-08-27] MEDS ORDERED: EPHEDRINE SULFATE INJ 50 MG/1 ML AMPULE ONE (09:45)
[2018-08-27] MEDS ORDERED: BUPIVACAINE HCL 0.25 % INJ/PF (2.5 MG/1 ML) 30 ML VIAL ONE (09:45)
[2018-08-27 09:57] LABS: ABSOLUTE BASOPHILS # (AUTO) 0.1 10^3/uL (0.0-0.2); ABSOLUTE EOSINOPHILS # (AUTO) 0.1 10^3/uL (0.0-0.6); ABSOLUTE MONOCYTES (AUTO) 0.9 10^3/uL (0.1-1.4); ABSOLUTE NEUT (AUTO) 12.1 10^3/uL (1.7-8.2); BASOPHILS % (AUTO) 0.8 % (0-2); EOSINOPHILS % (AUTO) 0.4 % (0-6); HEMATOCRIT 35.3 % (36.0-47.0); HEMOGLOBIN 11.7 g/dL (12.0-15.5); LYMPHOCYTES % (AUTO) 18.7 % (13-45); MEAN CORPUSCULAR HEMOGLOBIN 27.6 pg (27.0-33.4); MEAN CORPUSCULAR HGB CONC 33.2 g/dL (32.0-36.0); MEAN CORPUSCULAR VOLUME 83 fl (80-97); MONOCYTES % (AUTO) 5.4 % (3-13); PLATELET COUNT 276 10^3/uL (150-450); RED BLOOD COUNT 4.25 10^6/uL (3.72-5.28); RED CELL DISTRIBUTION WIDTH 14.9 % (11.5-14.0); SEGMENTED NEUTROPHILS % (AUTO) 74.7 % (42-78); TOTAL CELLS COUNTED % (AUTO) 100 %; WHITE BLOOD COUNT 16.2 10^3/uL (4.0-10.5)
[2018-08-27 10:13] LABS: ALANINE AMINOTRANSFERASE < 6 U/L (9-52); ALBUMIN 3.4 g/dL (3.5-5.0); ALKALINE PHOSPHATASE 201 U/L (38-126); AMYLASE 88 U/L (30-110); ANION GAP 9 (5-19); ASPARTATE AMINO TRANSFERASE 12 U/L (14-36); BILIRUBIN,DIRECT 0.2 mg/dL (0.0-0.4); BILIRUBIN,TOTAL 0.2 mg/dL (0.2-1.3); BLOOD UREA NITROGEN 6 mg/dL (7-20); CALCIUM 8.2 mg/dL (8.4-10.2); CARBON DIOXIDE 20 mmol/L (22-30); CHLORIDE 110 mmol/L (98-107); GLUCOSE 88 mg/dL (75-110); POTASSIUM 4.3 mmol/L (3.6-5.0); SODIUM 138.9 mmol/L (137-145); TOTAL PROTEIN 5.9 g/dL (6.3-8.2)
[2018-08-27 10:31] LABS: APPEARANCE,URINE CLEAR; BILIRUBIN,URINE NEGATIVE (NEGATIVE); COLOR,URINE YELLOW; GLUCOSE, URINE NEGATIVE (NEGATIVE); KETONES,URINE NEGATIVE (NEGATIVE); LEUKOCYTE ESTERASE,URINE NEGATIVE (NEGATIVE); NITRITE,URINE NEGATIVE (NEGATIVE); PROTEIN,URINE 30 mg/dL (NEGATIVE); URINE SPECIFIC GRAVITY 1.025; UROBILINOGEN,URINE NEGATIVE mg/dL (<2.0)
[2018-08-27 10:34] LABS: URINE AMPHETAMINES SCREEN NEGATIVE; URINE BARBITURATES SCREEN NEGATIVE; URINE BENZODIAZEPINES SCREEN NEGATIVE; URINE COCAINE SCREEN NEGATIVE; URINE MARIJUANA (THC) SCREEN NEGATIVE; URINE METHADONE SCREEN NEGATIVE; URINE PHENCYCLIDINE SCREEN NEGATIVE
[2018-08-27] MEDS ORDERED: DIPH/PERTUSS(ACELL)/TETANUS VAC/PF 0.5 ML SYR (>=10YO) IM PRN (13:26)
[2018-08-27] MEDS ORDERED: ACETAMINOPHEN 650 MG SUPP.RECT PR PRN (13:26)
[2018-08-27] MEDS ORDERED: OXYTOCIN/NORMAL SALINE 20 UNIT/1,000 ML RTUINJ IV PRN (13:26)
[2018-08-27] MEDS ORDERED: MEASLES,MUMPS&RUBELLA VACC/PF 0.5 ML VIAL SUBCUT PRN (13:26)
[2018-08-27] MEDS ORDERED: DIBUCAINE 1% OINTMENT 28 GM TP PRN (13:26)
[2018-08-27] MEDS ORDERED: ZOLPIDEM TARTRATE 5 MG TABLET PO PRN (13:26)
[2018-08-27] MEDS ORDERED: ACETAMINOPHEN WITH CODEINE #3 TABLET PO PRN ×2 (13:26)
[2018-08-27] MEDS ORDERED: GLYCERIN/WITCH HAZEL LEAF 1 EACH MED..PAD TP PRN (13:26)
[2018-08-27] MEDS ORDERED: DIPHENHYDRAMINE HCL 25 MG CAPSULE PO PRN (13:26)
[2018-08-27] MEDS ORDERED: MAGNESIUM HYDROXIDE SUSP 30 ML UDCUP PO PRN (13:26)
[2018-08-27] MEDS ORDERED: PROMETHAZINE HCL 25 MG SUPP.RECT PR PRN (13:26)
[2018-08-27] MEDS ORDERED: NA PHOS,M-B/NA PHOS,DI-BA (ADULT) 133 ML ENEMA PR PRN (13:26)
[2018-08-27] MEDS ORDERED: PSEUDOEPHEDRINE HCL 30 MG TABLET PO PRN (13:26)
[2018-08-27] MEDS ORDERED: PROMETHAZINE HCL INJ 25 MG/1 ML VIAL IV PRN (13:26)
[2018-08-27] MEDS ORDERED: PROMETHAZINE HCL 25 MG TABLET PO PRN (13:26)
[2018-08-27] MEDS ORDERED: BENZOCAINE/MENTHOL AEROSOL SPRAY 56 ML TOP PRN (13:26)
--- NOTE | 2018-08-27 15:24 | Delivery Summary ---
Del Sum A-C Datetime Report Generated by CPN: 08/27/2018 15:24 DELIVERY PERSONNEL DELIVERY PERSONNEL: [id number] Delivery Doctor:: Socorro Johnston CNM Labor and Delivery Nurse:: Mariela Bolivar RNtripper Nurse:: Shanda Guzman RN Student Observers:: Hannah FRANCOIS RN Tug Hand/AUTO AIR CONDITIONING INSTALLER: Judi Parham CST Tug Hand/AUTO AIR CONDITIONING INSTALLER: Cami Curiel CNA II Additional Personnel: : Betzy Patricio RN MATERNAL INFORMATION Delivery Anesthesia: Epidural Medications After Delivery: Pitocin Bolus-Please Comment; Pitocin Drip 20 Units/1000ml NSS Meds After Delivery Comment: Pitocin 20 units in 1 L NS bolusing per order Maternal Complications: None Provider Comments: KAYLEN VIABLE FEMALE WITH SPONTANEOUS CRY. AFTER DELIVERY OF HEAD, NUCHAL CORD NOTED-TIGHT, BABY SOMMERSAULTED. CORD DOUBLE CLAMPED AND CUT. SPONTANEOUS, INTACT PLACENTA WITH 3VC. SMALL FIRST DEGREE PERINEAL LACERATION NOT REQUIRING REPAIR; MOTHER AND STABLE IN L_D #6. LABOR SUMMARY EDC: 08/30/2018 00:00 No. Babies in Womb: 1 Attempted: No Labor Anesthesia: Epidural LABOR INFORMATION Reason for Induction: Not Applicable Onset of Labor: 08/27/2018 06:00 Complete Dilatation: 08/27/2018 13:07 Oxytocin: N/A Group B Beta Strep: negative Antibiotics # of Doses: 0 Antibiotics Time of Last Dose: n/a Name of Antibiotic Given: n/a Steroids Given: None Reason Steroids Not Administered: Not Applicable MEMBRANES Membranes Rupture Method: Artificial Rupture of Membranes: 08/27/2018 11:24 Length of Rupture (hr): 1.87 Amniotic Fluid Color: Clear Amniotic Fluid Amount: Moderate Amniotic Fluid Odor: Normal STAGES OF LABOR Stage 1 hr: 7 Stage 1 min: 7 Stage 2 hr: 0 Stage 2 min: 9 Stage 3 hr: 0 Stage 3 min: 4 Total Time in Labor hr: 7 Total Time in Labor min: 20 VAGINAL DELIVERY Episiotomy: None Laceration #1: Perineal Laceration Extension #1: First Degree Laceration Repair: No Sponge Count Correct: N/A Sharps Count Correct: N/A CSECTION DELIVERY Primary Indication: N/A Secondary Indication: N/A CSection Incidence: N/A Labor: N/A Elective: N/A CSection Incision: N/A BABY A INFORMATION Delivery Date/Time: 08/27/2018 13:16 Method of Delivery: Vaginal Born in Route : No : N/A Forceps: N/A Vacuum Extraction: N/A Shoulder Dystocia : No PRESENTATION/POSITION BABY A Presentation: Cephalic Cephalic Presentation: Vertex Vertex Position: Left Occipital Anterior Breech Presentation: N/A PLACENTA INFORMATION BABY A Placenta Delivery Time : 08/27/2018 13:20 Placenta Method of Delivery: Spontaneous Placenta Status: Delivered SCORES BABY A Heart Rate 1 min: >100 bpm Resp Effort 1 min: Good Cry Reflex Irritability 1 min: Cough or Sneeze or Pulls Away Muscle Tone 1 min: Active Motion Color 1 min: Blue/Pale Resuscitation Effort 1 min: Tactile Stimulation SCORE 1 MIN: 8 Heart Rate 5 min: >100 bpm Resp Effort 5 min: Good Cry Reflex Irritability 5 min: Cough or Sneeze or Pulls Away Muscle Tone 5 min: Active Motion Color 5 min: Body [place], Extremities Blue Resuscitation Effort 5 min: Tactile Stimulation SCORE 5 MIN: 9 INFORMATION BABY A Gestational Age at Delivery: 39.4 Gestational Status: Full Term- 39- 40.6 Weeks Infant Outcome : Liveborn Condition : Stable Sex: Female IDENTIFICATION BABY A Verification Date/Time: 08/27/2018 13:45 ID Band Number: [id number] Mother's Name Verified: Yes Infant RN Verifying : MJose Luis Bolivar, RN, C. [place], RN WEIGHT/LENGTH BABY A Infant Birthweight (gm): 3538 Infant Weight (lb): 7 Infant Weight (oz): 13 Length (in): 20.50 Length (cm): 52.07 CORD INFORMATION BABY A No. Cord Vessels: 3 Nuchal Cord : Around Neck x1, Tight Cord Blood Taken: Yes-For Storage (Mom's Blood type +) Suction: None ASSESSMENT BABY A Complications: None Physical Findings at Delivery: Within Normal Limits Infant Respirations: Appears Normal Skin to Skin: Yes Skin to Skin Time (min): 60 Well Services Operator/ALS Called : No Care By: Jia FIELD, RN Transferred To: Remains with Mother BABY B INFORMATION : N/A SIGNATURES Assignment: Kelly Avila MD Signature: with User ID: [email or web address] : with User ID: [email or web address] : I was personally available for consultation and serving as supervising physician for the MLP.
[2018-08-27] MEDS: IBUPROFEN 800 MG TABLET PO SCH ×2 (17:45→22:08)
[2018-08-27] MEDS: DOCUSATE SODIUM 100 MG CAPSULE PO SCH (17:45)
[2018-08-27] MEDS: FERROUS SULFATE 325 MG TABLET PO SCH (17:46)
[2018-08-27] MEDS: FAMOTIDINE 20 MG TABLET PO SCH (22:08)
[2018-08-28] MEDS: IBUPROFEN 800 MG TABLET PO SCH ×3 (05:58→21:18)
[2018-08-28 06:29] LABS: ABSOLUTE BASOPHILS # (AUTO) 0.1 10^3/uL (0.0-0.2); ABSOLUTE EOSINOPHILS # (AUTO) 0.1 10^3/uL (0.0-0.6); ABSOLUTE LYMPHOCYTES (AUTO) 4.6 10^3/uL (0.5-4.7); ABSOLUTE MONOCYTES (AUTO) 1.1 10^3/uL (0.1-1.4); ABSOLUTE NEUT (AUTO) 9.7 10^3/uL (1.7-8.2); BASOPHILS % (AUTO) 0.4 % (0-2); EOSINOPHILS % (AUTO) 0.9 % (0-6); HEMATOCRIT 29.4 % (36.0-47.0); HEMOGLOBIN 9.7 g/dL (12.0-15.5); LYMPHOCYTES % (AUTO) 29.4 % (13-45); MEAN CORPUSCULAR HEMOGLOBIN 28.1 pg (27.0-33.4); MEAN CORPUSCULAR VOLUME 85 fl (80-97); PLATELET COUNT 222 10^3/uL (150-450); RED BLOOD COUNT 3.45 10^6/uL (3.72-5.28); RED CELL DISTRIBUTION WIDTH 15.2 % (11.5-14.0); SEGMENTED NEUTROPHILS % (AUTO) 62.3 % (42-78); TOTAL CELLS COUNTED % (AUTO) 100 %; WHITE BLOOD COUNT 15.6 10^3/uL (4.0-10.5)
[2018-08-28 06:56] LABS: ALANINE AMINOTRANSFERASE 7 U/L (9-52); ALBUMIN 2.6 g/dL (3.5-5.0); ALKALINE PHOSPHATASE 140 U/L (38-126); AMYLASE 71 U/L (30-110); ASPARTATE AMINO TRANSFERASE 17 U/L (14-36); BILIRUBIN,DIRECT 0.1 mg/dL (0.0-0.4); BILIRUBIN,TOTAL 0.1 mg/dL (0.2-1.3); BLOOD UREA NITROGEN 6 mg/dL (7-20); CALCIUM 8.1 mg/dL (8.4-10.2); CARBON DIOXIDE 21 mmol/L (22-30); GLUCOSE 106 mg/dL (75-110); LIPASE 434.4 U/L (23-300); POTASSIUM 3.8 mmol/L (3.6-5.0)
[2018-08-28 07:03] LABS: CHLORIDE 117 mmol/L (98-107); SODIUM 140.7 mmol/L (137-145)
[2018-08-28 07:07] LABS: ANION GAP 3 (5-19)
--- NOTE | 2018-08-28 09:33 | PDOC PROGRESS REPORT ---
Subjective-OB Progress Note for:: 08/28/18 Subjective: Doing well, no c/o, Physical Exam (OB) Vital Signs: Temp Pulse Resp BP Pulse Ox 97.9 F 91 16 101/63 98 08/28/18 07:41 08/28/18 07:41 08/28/18 07:41 08/28/18 07:41 08/28/18 07:41 Intake & Output 08/27/18 08/28/18 08/29/18 06:59 06:59 06:59 Weight 88.1 kg - PIH/Pre-Eclampsia DTR's: 2 + Clonus: Negative Headache: Absent Epigastric Pain: No Visual Changes: No - Lochia Lochia Amount: Scant < 10 ml Lochia Color: Rubra/Red - Abdomen Description: Tender, Soft Hernia Present: No Fundal Description: Firm, Midline Fundal Height: u/u - u/2 Objective-Diagnostic Laboratory: 08/28/18 05:49 08/28/18 05:49 08/27/18 08/27/18 08/27/18 09:02 09:43 09:43 WBC 16.2 H RBC 4.25 Hgb 11.7 L Hct 35.3 L MCV 83 MCH 27.6 MCHC 33.2 RDW 14.9 H Plt Count 276 Seg Neutrophils % 74.7 Lymphocytes % 18.7 Monocytes % 5.4 Eosinophils % 0.4 Basophils % 0.8 Absolute Neutrophils 12.1 H Absolute Lymphocytes 3.0 Absolute Monocytes 0.9 Absolute Eosinophils 0.1 Absolute Basophils 0.1 Sodium Potassium Chloride Carbon Dioxide Anion Gap BUN Creatinine Est GFR ( Amer) Est GFR (Non-Af Amer) Glucose Calcium Total Bilirubin AST ALT Alkaline Phosphatase Total Protein Albumin Amylase Lipase Urine Color YELLOW Urine Appearance CLEAR Urine pH 5.0 Ur Specific [place] 1.025 Urine Protein 30 H Urine Glucose (UA) NEGATIVE Urine Ketones NEGATIVE Urine Blood MODERATE H Urine Nitrite NEGATIVE Ur Leukocyte Esterase NEGATIVE Urine WBC (Auto) 2 Urine RBC (Auto) 9 Blood Type A POSITIVE Antibody Screen NEGATIVE 08/27/18 08/28/18 08/28/18 09:43 05:49 05:49 WBC 15.6 H RBC 3.45 L Hgb 9.7 L Hct 29.4 L MCV 85 MCH 28.1 MCHC 33.0 RDW 15.2 H Plt Count 222 Seg Neutrophils % 62.3 Lymphocytes % 29.4 Monocytes % 7.0 Eosinophils % 0.9 Basophils % 0.4 Absolute Neutrophils 9.7 H Absolute Lymphocytes 4.6 Absolute Monocytes 1.1 Absolute Eosinophils 0.1 Absolute Basophils 0.1 Sodium 138.9 140.7 Potassium 4.3 3.8 Chloride 110 H 117 H Carbon Dioxide 20 L 21 L Anion Gap 9 3 L BUN 6 L 6 L Creatinine 0.48 L 0.55 Est GFR ( Amer) > 60 > 60 Est GFR (Non-Af Amer) > 60 > 60 Glucose 88 106 Calcium 8.2 L 8.1 L Total Bilirubin 0.2 0.1 L AST 12 L 17 ALT < 6 L 7 L Alkaline Phosphatase 201 H 140 H Total Protein 5.9 L 5.0 L Albumin 3.4 L 2.6 L Amylase 88 71 Lipase 516.0 H 434.4 H Urine Color Urine Appearance Urine pH Ur Specific [place] Urine Protein Urine Glucose (UA) Urine Ketones Urine Blood Urine Nitrite Ur Leukocyte Esterase Urine WBC (Auto) Urine RBC (Auto) Blood Type Antibody Screen Assessment and Plan(PN) - Assessment and Plan (1) Vaginal delivery Is this a current diagnosis for this admission?: Yes (2) Obstetrical laceration, first degree Is this a current diagnosis for this admission?: Yes - Time Spent with Patient Time with patient: Less than 15 minutes Medications reviewed and adjusted accordingly: Yes - Disposition Anticipated Discharge: Home Within: within 24 hours
[2018-08-28] MEDS: PRENATAL VITAMIN W DHA CAPSULE PO SCH (09:58)
[2018-08-28] MEDS: SENNOSIDES/DOCUSATE 8.6-50 MG 1 EACH TABLET PO SCH (09:58)
[2018-08-28] MEDS: FAMOTIDINE 20 MG TABLET PO SCH ×2 (09:58→21:19)
[2018-08-28] MEDS: DOCUSATE SODIUM 100 MG CAPSULE PO SCH ×2 (09:59→17:23)
[2018-08-28] MEDS: FERROUS SULFATE 325 MG TABLET PO SCH ×2 (09:59→17:23)
[2018-08-29] MEDS: IBUPROFEN 800 MG TABLET PO SCH ×2 (05:56→14:29)
[2018-08-29 08:18] VITALS: BP 117/63
[2018-08-29] MEDS: FERROUS SULFATE 325 MG TABLET PO SCH (09:31)
[2018-08-29] MEDS: PRENATAL VITAMIN W DHA CAPSULE PO SCH (09:31)
[2018-08-29] MEDS: SENNOSIDES/DOCUSATE 8.6-50 MG 1 EACH TABLET PO SCH (09:31)
[2018-08-29] MEDS: FAMOTIDINE 20 MG TABLET PO SCH (09:31)
[2018-08-29] MEDS: DOCUSATE SODIUM 100 MG CAPSULE PO SCH (09:32)
--- NOTE | 2018-08-29 13:18 | PDOC DISCHARGE SUMMARY ---
Final Diagnosis Discharge Date: 08/29/18 - Final Diagnosis (1) Acute blood loss anemia Is this a current diagnosis for this admission?: Yes (2) Vaginal delivery Is this a current diagnosis for this admission?: Yes (3) Elevated lipase Is this a current diagnosis for this admission?: Yes (4) Obstetrical laceration, first degree Is this a current diagnosis for this admission?: Yes (5) Active labor at term Is this a current diagnosis for this admission?: Yes (6) Anxiety Is this a current diagnosis for this admission?: Yes Discharge Data - Discharge Medication Prescriptions: Ibuprofen [Motrin 800 mg Tablet] 800 mg PO Q8HP PRN #30 tablet PRN Reason: Abdominal Cramping Docusate Sodium [Colace 100 mg Capsule] 100 mg PO BID #60 capsule Ferrous Sulfate [Feosol 325 mg Tablet] 325 mg PO BID #60 tablet Home Medications: [id number]/Iron,Crb/Folic [Kosher Plus Iron Tab] 1 tab PO DAILY 09/26/16 Docusate Sodium [Colace 100 mg Capsule] 100 mg PO BID #60 capsule 08/29/18 Ferrous Sulfate [Feosol 325 mg Tablet] 325 mg PO BID #60 tablet 08/29/18 Ibuprofen [Motrin 800 mg Tablet] 800 mg PO Q8HP PRN #30 tablet 08/29/18 Reason(s) for Admission: Onset of Labor Procedures: Ultrasound Intrapartum Procedure(s): Spontaneous Vaginal Delivery Complication(s): Laceration-Vaginal Laceration-Degree: 1st - Diagnosis Test Laboratory: Temp Pulse Resp BP Pulse Ox 98.6 F 93 16 117/63 97 08/29/18 07:52 08/29/18 07:52 08/29/18 07:52 08/29/18 07:52 08/29/18 07:52 08/27/18 08/27/18 08/28/18 09:02 09:43 05:49 RBC 4.25 3.45 L Hgb 11.7 L 9.7 L Hct 35.3 L 29.4 L Urine Opiates Screen NEGATIVE - Discharge information/Instructions Discharge Activity: Activity As Tolerated, Balance Activity w/Rest, No Lifting Over 10 Pounds, Pelvic Rest, No tub bath, Walk Frequently Discharge Diet: Regular Disposition: HOME, SELF-CARE Follow up with: [facility] in: 4, Weeks - also needs to f/u with general surgeon at office (info given)
== END 2018-08-29 14:21 | disposition home or self-care (01) | DRG 806 ==
LOC: LC 08:57 → LR 09:17 → 2S 16:45
PROVIDERS: ADMIT Student in an Organized Health Care Education/Training Program; ATTEND Student in an Organized Health Care Education/Training Program
PROC: 10E0XZZ Delivery of Products of Conception, External Approach (ICD-10-PCS; principal; 2018-08-27)
PROC: 0HQ9XZZ Repair Perineum Skin, External Approach (ICD-10-PCS; 2018-08-27)
PROC: 10907ZC Drainage of Amniotic Fluid, Therapeutic from Products of Conception, Via Natural or Artificial Opening (ICD-10-PCS; 2018-08-27)
PROC: 4A1HXCZ Monitoring of Products of Conception, Cardiac Rate, External Approach (ICD-10-PCS; 2018-08-27)
DX: O90.81 Anemia of the puerperium (principal); D62 Acute posthemorrhagic anemia; Z37.0 Single live birth; O70.0 First degree perineal laceration during delivery; O99.344 Other mental disorders complicating childbirth; F41.9 Anxiety disorder, unspecified; O69.1XX0 Labor and delivery complicated by cord around neck, with compression, not applicable or unspecified; Z91.040 Latex allergy status; Z3A.39 39 weeks gestation of pregnancy
CPT/HCPCS: 36415; 80053; 80307; 81001; 82150; 83690; 85025; 86592; 86850; 86900; 86901; J2590; J3010; J3490